=== PATIENT | female | born 1970 | race African-American/Black ===

== ENCOUNTER 2018-11-08 08:26 | Emergency (ER) | payer OTHER ==
--- OUTSIDE RECORDS SUMMARY | 2018-11-08 08:28 | XMS REPORT | Clinical Summary ---
:1970 Author Organization [facility] Address [address] [place] [address] Care Team Providers Name Role Phone Alyssa Singleton MD Primary Care Provider Unavailable Allergies Active Allergy Reactions Severity Noted Date Comments Aspirin Other (See Comments) 11/18/2016 Feels a needle sensation in throat Cheese Hives, Swelling 11/18/2016 Medications Medication Sig Dispensed Refills Start Date End Date Status atorvastatin Take 1 tablet 90 tablet 2 04/27/2018 Active (LIPITOR) 20 MG (20 mg total) tabletIndications: by mouth Mixed hyperlipidemia nightly. gabapentin 1 tab day 1 at 90 capsule 2 04/27/2018 Active (NEURONTIN) 300 mg bedtime, day 2 capsuleIndications: 1 tablet two Right sided sciatica times a day, then 1 tablet three times a day citalopram (CeleXA) Take 1 tablet 30 tablet 5 07/05/2018 Active 20 MG (20 mg total) tabletIndications: by mouth Adjustment reaction daily. Dc 10mg with anxiety dose diclofenac Apply 100 g 1 07/05/2018 Active (VOLTAREN) 1 % topically 4 gelIndications: (four) times a Osteoarthritis of day as needed lumbar spine, (2gm). unspecified spinal osteoarthritis complication status, Acute pain of left knee flash glucose 1 each daily. 84 each 3 10/18/2018 Active scanning reader (FREESTYLE DIXON 14 DAY READER) miscIndications: Type 2 diabetes mellitus with complication, without long-term current use of insulin ([facility]) flash glucose sensor 1 each daily. 84 kit 3 10/18/2018 Active (FREESTYLE DIXON 14 DAY SENSOR) kitIndications: Type 2 diabetes mellitus with complication, without long-term current use of insulin ([facility]) lisinopril Take 1 tablet 90 tablet 3 10/18/2018 Active (PRINIVIL,ZESTRIL) (20 mg total) 20 mg by mouth tabletIndications: daily. Essential hypertension atorvastatin TAKE ONE 0 01/19/2018 Discontinued (LIPITOR) 20 MG TABLET BY 8 tablet MOUTH AT BEDTIME citalopram (CeleXA) Take 10 mg by 0 08/20/2017 Discontinued 10 MG tablet mouth. 8 lisinopril TAKE ONE 0 12/10/2017 Discontinued (PRINIVIL,ZESTRIL) TABLET BY 9 20 mg tablet MOUTH ONCE DAILY citalopram (CeleXA) Take 1 tablet 90 tablet 2 04/27/2018 Discontinued 10 MG (10 mg total) 8 tabletIndications: by mouth Adjustment reaction daily. with anxiety cyclobenzaprine Take 1 tablet 30 tablet 0 04/27/2018 (FLEXERIL) 10 mg (10 mg total) 8 tabletIndications: by mouth 3 Right sided (three) times sciatica, Lumbar a day as radiculopathy, Spasm needed for of muscle, back muscle spasms for up to 10 days. Active Problems Problem Noted Date DJD (degenerative joint disease), lumbar 04/30/2018 Overview: on MRI Spondylosis of lumbar spine 04/30/2018 Overview: on MRI Mixed hyperlipidemia 04/27/2018 Anemia 03/30/2018 Morbid obesity 03/30/2018 Prediabetes 03/30/2018 Essential hypertension 11/18/2016 Menopause 11/18/2016 Sleep apnea 11/18/2016 Type 2 diabetes mellitus with complication, without long-term current use of insulin Encounters Date Type Specialty Care Team Description 10/18/2018 Office Visit Family Alyssa Yip Type 2 diabetes mellitus with complication, without long-term current use of insulin (HCC) ( Primary Dx); MD Yudelka Essential hypertension; Mixed hyperlipidemia; Morbid obesity (HCC); Adjustment reaction with anxiety; Bilateral arm pain; Flu vaccine need 08/09/2018 Refill Alyssa Field Right sided sciatica; MD Yudelka Lumbar radiculopathy; Spasm of muscle, back 07/05/2018 Office Visit Alyssa Field Osteoarthritis of lumbar spine, unspecified spinal osteoarthritis complication status (Primary Dx) ; MD Yudelka Acute pain of left knee; Spondylosis of lumbar spine; Adjustment reaction with anxiety; Essential hypertension 05/26/2018 Telephone Family Medicine Deisy Branch, [place] 05/05/2018 Refill Family Medicine Alyssa Singleton Right sided sciatica; MD Yudelka Lumbar radiculopathy; Spasm of muscle, back 04/27/2018 Office Visit Family Alyssa Yip Type 2 diabetes mellitus with complication, without long-term current use of insulin (Primary Dx ); MD Yudelka Essential hypertension; Adjustment reaction with anxiety; Right sided sciatica; Morbid obesity; Mixed hyperlipidemia; Lumbar radiculopathy; Spasm of muscle, back after 11/07/2017 Immunizations Name Dates Previously Given Next Due INFLUENZA QUAD 08/20/2017 INFLUENZA QUAD PF 10/18/2018 Pneumococcal Polysaccharide 03/12/2013 Family History Medical History Relation Name Comments No Known Problems Daughter adopted No Known Problems Daughter adopted Hypertension Father Arthritis Mother Danya Allred Asthma Mother Danya Allred Depression Mother Danya Allred Diabetes Mother Danya Allred Heart disease Mother Danya Allred has defibrillator Hypertension Mother Danya Allred No Known Problems Sister No Known Problems Son adopted No Known Problems Son adopte No Known Problems Son Relation Name Status Comments Brother (Age 24) Daughter adopted Alive Daughter adopted Alive Father Alive Mother Danya Allred Sister Alive Son adopted Alive Son adopte Alive Son Alive Social History Tobacco Use Types Packs/Day Years Used Date Never Smoker Smokeless Tobacco: Never Used Alcohol Use Drinks/Week oz/Week Comments No Sex Assigned at Date Recorded Not on file Job Start Date Occupation Industry Not on file Not on file Not on file Travel History Travel Start Travel End No recent travel history available. Last Filed Vital Signs Vital Sign Reading Time Taken Blood Pressure 140/99 10/18/2018 10:02 AM [employer] Pulse 84 10/18/2018 10:02 AM [employer] Temperature - - Respiratory Rate - - Oxygen Saturation - - Inhaled Oxygen Concentration - - Weight 122 kg (268 lb) 10/18/2018 10:02 AM [employer] Height 160 cm (5' 3") 10/18/2018 10:02 AM [employer] Body Mass Index 47.47 10/18/2018 10:02 AM [employer] Plan of Treatment Date Type Specialty Care Team Description 04/18/2019 Office Visit Family Alyssa Yip MD [address] [facility] [address] [place] [address] [phone] Health Maintenance Due Date Last Done Comments DIABETIC FOOT EXAM 11/18/2017 11/18/2016, 11/18/2016 DIABETIC RETINAL EYE EXAM 01/16/2019 01/16/2017 URINE MICROALBUMIN 04/27/2019 04/27/2018 INFLUENZA VACCINE Completed 10/18/2018, 08/20/2017 Procedures Procedure Name Priority Date/Time Associated Diagnosis Comments HEMOGLOBIN A1C Routine 10/18/2018 11:20 Type 2 diabetes Results for this AM [employer] mellitus with procedure are in complication, without the results long-term current use section. of insulin (HCC) MICROALBUMIN / Routine 04/27/2018 4:07 Type 2 diabetes Results for this CREATININE URINE PM CDT mellitus with procedure are in RATIO complication, without the results long-term current use section. of insulin LIPID PANEL Routine 04/27/2018 4:07 Type 2 diabetes Results for this PM CDT mellitus with procedure are in complication, without the results long-term current use section. of insulin Essential hypertension Mixed hyperlipidemia HEMOGLOBIN A1C Routine 04/27/2018 4:07 Type 2 diabetes Results for this PM CDT mellitus with procedure are in complication, without the results long-term current use section. of insulin COMPREHENSIVE Routine 04/27/2018 4:07 Type 2 diabetes Results for this METABOLIC PANEL PM CDT mellitus with procedure are in complication, without the results long-term current use section. of insulin Essential hypertension Mixed hyperlipidemia CBC WITH PLATELET AND Routine 04/27/2018 4:07 Type 2 diabetes Results for this DIFFERENTIAL PM CDT mellitus with procedure are in complication, without the results long-term current use section. of insulin Essential hypertension after 11/07/2017 Results Hemoglobin A1c (10/18/2018 11:20 AM [employer])Only the most recent of2 resultswithin the time period is included. Hemoglobin A1C 5.6 4.8 - 5.6 % [facility] Comment: Prediabetes: 5.7 - 6.4 Diabetes: >6.4 Glycemic control for adults with diabetes: <7.0 Specimen Blood Narrative Performed At Performed at:01 - [facility] [address], [id number] Bank President: Zain Miranda MD, Phone:[phone] Performing Organization Address City/State/Zipcode Phone Number [facility] Microalbumin / creatinine urine ratio (04/27/2018 4:07 PM CDT) Creatinine, urine, random 281.9 Not Estab. mg/dL [facility] Microalbumin, urine 6.8 Not Estab. ug/mL [facility] Microalbumin/creatinine ratio 2.4 0.0 - 30.0 mg/g creat [facility] Specimen Urine Narrative Performed At Performed at:[address] [place], [place] [id number] Bank President: Zain Miranda MD, Phone:[phone] Performing Organization Address City/State/Zipcode Phone Number [facility] CBC with platelet and differential (04/27/2018 4:07 PM CDT) WBC 7.8 3.4 - 10.8 x10E3/uL [facility] RBC 4.25 3.77 - 5.28 x10E6/uL [facility] HGB 12.9 11.1 - 15.9 g/dL [facility] HCT 38.9 34.0 - 46.6 % [facility] MCV 92 79 - 97 fL [facility] MCH 30.4 26.6 - 33.0 pg [facility] MCHC 33.2 31.5 - 35.7 g/dL [facility] RDW 13.9 12.3 - 15.4 % [facility] Platelet count 271 150 - 379 x10E3/uL [facility] Neutrophils 47 Not Estab. % [facility] Lymphocytes 47 Not Estab. % [facility] Monocytes 6 Not Estab. % [facility] Eosinophils 0 Not Estab. % [facility] Basophils 0 Not Estab. % [facility] Neutrophils, absolute 3.7 1.4 - 7.0 x10E3/uL [facility] Lymphocytes, absolute 3.7 (H) 0.7 - 3.1 x10E3/uL [facility] Monocytes, absolute 0.4 0.1 - 0.9 x10E3/uL [facility] Eosinophils, absolute 0.0 0.0 - 0.4 x10E3/uL [facility] Basophils, absolute 0.0 0.0 - 0.2 x10E3/uL [facility] Immature granulocytes 0 Not Estab. % [facility] Immature grans (abs) 0.0 0.0 - 0.1 x10E3/uL [facility] Specimen Blood Narrative Performed At Performed at:[address] [place] [address] [facility] [address], [id number] Bank President: Zain Miranda MD, Phone:[phone] Performing Organization Address [facility] [place] Phone Number [facility] Lipid panel (04/27/2018 4:07 PM CDT) Cholesterol 130 100 - 199 mg/dL [facility] Triglycerides 60 0 - 149 mg/dL [facility] HDL cholesterol 46 >39 mg/dL [facility] VLDL cholesterol kiana 12 5 - 40 mg/dL [facility] LDL cholesterol calculated 72 0 - 99 mg/dL [facility] Non-HDL cholesterol 84 0 - 129 mg/dL [facility] Specimen Blood Narrative Performed At Performed at:01 - [facility] [address], [id number] Bank President: Zain Miranda MD, Phone:[phone] Performing Organization Address [facility] Phone Number [facility] Comprehensive metabolic panel (04/27/2018 4:07 PM CDT) Glucose 92 65 - 99 mg/dL [facility] BUN, whole blood 17 6 - 24 mg/dL [facility] Creatinine 0.87 0.57 - 1.00 mg/dL [facility] EGFR Non-Afr. [place] 79 >59 mL/min/1.73 [facility] EGFR 91 >59 mL/min/1.73 [facility] BUN/creatinine ratio 20 9 - 23 [facility] Sodium 144 134 - 144 mmol/L [facility] Potassium 3.5 3.5 - 5.2 mmol/L [facility] Chloride 103 96 - 106 mmol/L [facility] CO2 22 20 - 29 mmol/L [facility] Calcium 9.5 8.7 - 10.2 mg/dL [facility] Protein 7.0 6.0 - 8.5 g/dL [facility] Albumin, S 4.3 3.5 - 5.5 g/dL [facility] Globulin, total 2.7 1.5 - 4.5 g/dL [facility] Albumin/globulin ratio 1.6 1.2 - 2.2 [facility] Total bilirubin 0.8 0.0 - 1.2 mg/dL [facility] Alkaline phosphatase 89 39 - 117 IU/L [facility] AST 13 0 - 40 IU/L [facility] ALT 13 0 - 32 IU/L [facility] Specimen Blood Narrative Performed At Performed at: - [facility] [address], [id number] Bank President: Zain Miranda MD, Phone:[phone] Performing Organization Address City/State/Zipcode Phone Number [facility] after 11/07/2017 Insurance Payer Benefit Plan / Group Subscriber ID Type Phone Address [employer] PPO (Home) [place] [address] Advance Directives Patient has advance care planning documents on file. For more information, please contact:Gilson Lowry[address] [place] [address]
[2018-11-08] MEDS ORDERED: ASPIRIN 81 MG CHEWABLE TABLET ONE (09:13)
[2018-11-08 09:16] LABS: Absolute Lymphocytes (CBC) 2.2 K/uL (0.7-4.9); Absolute Monocytes 0.4 K/uL (0.1-1.3); Absolute Neutrophil 3.3 K/uL (1.8-8.0); Basophils % 0.6 % (0-1.3); Eosinophils % 0.9 % (0-4.4); Hematocrit 38.1 % (36.0-45.0); Lymphocytes % 36.8 % (15.3-44.8); MPV 9.3 fL (7.6-11.3); Monocytes % 7.1 % (3.3-12.3); RBC Red Blood Cell Count 4.16 M/uL (3.86-4.86)
[2018-11-08 09:42] LABS: ALT/SGPT 17 U/L (12-78); AST/SGOT 13 U/L (15-37); Albumin 3.2 g/dL (3.4-5.0); Alkaline Phosphatase 117 U/L (45-117); BUN Blood Urea Nitrogen 16 mg/dL (7-18); Bicarbonate 28 mmol/L (21-32); Bilirubin Direct 0.2 mg/dL (0-0.2); Bilirubin Total 0.6 mg/dL (0.2-1.0); Glucose Level 95 mg/dL (74-106); Magnesium 2.1 mg/dL (1.8-2.4); Potassium 3.8 mmol/L (3.5-5.1); Protein, Total 7.1 g/dL (6.4-8.2); Sodium Level 142 mmol/L (136-145); Troponin (Emerg Dept Use Only) < 0.02 ng/mL (0.0-0.045)
[2018-11-08 09:57] LABS: Protime INR 1.11
--- NOTE | 2018-11-08 10:09 | RAD REPORT ---
EXAM DESCRIPTION: RAD - Chest Single View - 11/08/2018 9:39 am CLINICAL HISTORY: chest heaviness, left arm pain Chest pain. COMPARISON: CHEST SINGLE VIEW dated 02/29/2012 FINDINGS: Portable technique limits examination quality. The lungs are grossly clear. The heart is upper limit of normal in size. No displaced fractures. IMPRESSION: No acute intrathoracic process suspected.
--- NOTE | 2018-11-08 10:27 | ER ---
Nurse's Notes [facility] Name: Iliana Redding Age: 48 yrs Sex: Female : 1970 Arrival Date: 11/08/2018 Time: 08:30 Bed 18 Private MD: Diagnosis: Pain in left arm Presentation: 11/08 08:35 Presenting complaint: Left arm pain x 1 month. Pain is described as a burning hb sensation, denies injury. Transition of care: patient was not received from another setting of care. Onset of symptoms was September 2018. Risk Assessment: Do you want to hurt yourself or someone else? Patient reports no desire to harm self or others. Initial Sepsis Screen: Does the patient meet any 2 criteria? No. Patient's initial sepsis screen is negative. Does the patient have a suspected source of infection? No. Patient's initial sepsis screen is negative. Care prior to arrival: None. 08:35 Method Of Arrival: Ambulatory hb 08:35 Acuity: OCHOA 4 hb [employer] ADJUSTMENT: 08:36 LMP N/A - Hysterectomy hb Historical: - Allergies: 08:37 No Known Allergies; hb - Home Meds: 08:37 Lisinopril Oral [Active]; unknown cholesterol med [Active]; hb - PMHx: 08:37 High Cholesterol; Hypertension; hb - PSHx: 08:37 tubal pregnangy x 2; Hysterectomy; Cholecystectomy; hb - Immunization history:: Adult Immunizations up to date. - Social history:: Smoking status: Patient/guardian denies using tobacco. - Ebola Screening: : No symptoms or risks identified at this time. Screenin:37 Abuse screen: Denies threats or abuse. Denies injuries from another. Nutritional hb screening: No deficits noted. Tuberculosis screening: No symptoms or risk factors identified. Fall Risk None identified. Assessment: 08:30 General: Appears in no apparent distress. obese, Behavior is calm, cooperative, tw2 appropriate for age. Pain: Denies pain. Neuro: Level of Consciousness is awake, alert, obeys commands, Oriented to person, place, time, situation. Cardiovascular: Denies chest pain, shortness of breath, Heart tones S1 S2 Patient's skin is warm and dry. Respiratory: Respiratory effort is even, unlabored, Respiratory pattern is regular, symmetrical, Breath sounds are clear bilaterally. GI: No signs and/or symptoms were reported involving the gastrointestinal system. Abdomen is round non-distended, obese, Bowel sounds present X 4 quads. : No signs and/or symptoms were reported regarding the genitourinary system. EENT: No signs and/or symptoms were reported regarding the EENT system. Derm: No signs and/or symptoms reported regarding the dermatologic system. Musculoskeletal: Range of motion: intact in all extremities, Denies numbness in, left arm. 09:36 Reassessment: Patient appears in no apparent distress at this time. No changes from tw2 previously documented assessment. Patient and/or family updated on plan of care and expected duration. Pain level reassessed. Patient is alert, oriented x 3, equal unlabored respirations, skin warm/dry/pink. 10:02 Reassessment: Patient appears in no apparent distress at this time. No changes from tw2 previously documented assessment. Patient and/or family updated on plan of care and expected duration. Pain level reassessed. Patient is alert, oriented x 3, equal unlabored respirations, skin warm/dry/pink. 10:44 Reassessment: Patient appears in no apparent distress at this time. No changes from tw2 previously documented assessment. Patient is alert, oriented x 3, equal unlabored respirations, skin warm/dry/pink. Vital Signs: 08:36 BP 141 / 89; Pulse 90; Resp 16; Temp 98.1; Pulse Ox 98% on R/A; Pain 8/10; hb 09:36 BP 140 / 113; Pulse 77; Resp 20; Pulse Ox 100% on R/A; tw2 10:01 BP 134 / 105; Pulse 81; Resp 16; Pulse Ox 100% on R/A; tw2 10:43 BP 133 / 84; Pulse 87; Resp 17; Pulse Ox 99% on R/A; tw2 ED Course: 08:30 Patient arrived in ED. hb 08:31 Camron Hassan PA is PHCP. cp 08:31 Devendra Goodrich MD is Attending Physician. cp 08:36 Triage completed. hb 08:36 Arm band placed on. hb 08:38 Patient has correct armband on for positive identification. Bed in low position. Call hb light in reach. Side rails up X 1. 08:40 Sigrid Hartmann RN is Primary Nurse. tw2 09:06 Inserted saline lock: 20 gauge in right antecubital area, using aseptic technique. mw2 Blood collected. 09:38 X-ray completed. Portable x-ray completed in exam room. Patient tolerated procedure jb2 well. 09:39 XRAY Chest (1 view) In Process Unspecified. EDMS 09:42 EKG done, by electrocardiogram technician. reviewed by Camron BRYSON. at1 10:44 No provider procedures requiring assistance completed. IV discontinued, intact, tw2 bleeding controlled, No redness/swelling at site. Pressure dressing applied. Administered Medications: 09:12 Drug: Aspirin Chewable Tablet 324 mg Route: PO; tw2 10:00 Follow up: Response: No adverse reaction tw2 Outcome: 10:26 Discharge ordered by MD. cp 10:44 Discharged to home ambulatory, with family. tw2 10:44 Condition: stable 10:44 Discharge instructions given to patient, family, Instructed on discharge instructions, follow up and referral plans. medication usage, Demonstrated understanding of instructions, follow-up care, medications, Prescriptions given X 1. 10:45 Patient left the ED. tw2 Signatures: Dispatcher [employer] EDMS Jalil Mosqueda jb2 Kellie Tuttle, conference producer EKG Tat1 Camron Hassan PA PA cp Baxter, Heather, RN RN Sigrid Hartmann RN RN tw2 Akbar Ramírez mw2
--- NOTE | 2018-11-08 10:27 | EDPHYS ---
Physician Documentation [facility] Name: Iliana Redding Age: 48 yrs Sex: Female : 1970 Arrival Date: 11/08/2018 Time: 08:30 Bed 18 Private MD: ED Physician Devendra Goodrich HPI: 11/08 09:12 This 48 yrs old Black Female presents to ER via Ambulatory with complaints of left arm cp burning. 09:12 The patient or guardian complains of burning. The complaints affect the left arm. cp Onset: The symptoms/episode began/occurred 1 week(s) ago, waxing and waning. Modifying factors: The symptoms are alleviated by nothing. the symptoms are aggravated by nothing. 09:12 Treatment prior to arrival includes: no previous treatment. cp 09:12 Associated signs and symptoms: Pertinent positives: chest heaviness, Pertinent cp negatives: decreased range of motion, numbness, swelling, weakness, neck or back pain. Severity of symptoms: in the emergency department the symptoms have improved. 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 - Social history:: Smoking status: Patient/guardian denies using tobacco. - Ebola Screening: : No symptoms or risks identified at this time. ROS: 09:15 Constitutional: Negative for body aches, chills, fever, poor PO intake. cp 09:15 Eyes: Negative for injury, pain, redness, and discharge. cp 09:15 ENT: Negative for drainage from ear(s), ear pain, sore throat, difficulty swallowing, difficulty handling secretions. 09:15 Neck: Negative for injury or acute deformity, pain with movement, pain at rest, stiffness, tenderness. 09:15 Cardiovascular: Positive for chest heaviness, Negative for chest pain, edema, palpitations. 09:15 Respiratory: Negative for cough, shortness of breath, wheezing. 09:15 Abdomen/GI: Negative for abdominal pain, nausea, vomiting, and diarrhea, constipation, black/tarry stool, rectal bleeding. 09:15 Back: Negative for injury or acute deformity, pain at rest, pain with movement, radiated pain. 09:15 : Negative for urinary symptoms. 09:15 MS/extremity: Positive for of the left arm, burning pain , Negative for injury or acute deformity, decreased range of motion, paresthesias, swelling, tenderness, warmth. 09:15 Skin: Negative for cellulitis, rash. 09:15 Neuro: Negative for altered mental status, dizziness, headache, numbness, tingling, weakness. 09:15 All other systems are negative. Exam: 09:18 ECG was reviewed by the Attending Physician. cp 09:25 Constitutional: The patient appears in no acute distress, alert, awake, cp non-diaphoretic, non-toxic, well developed, well nourished, obese. 09:25 Head/Face: Normocephalic, atraumatic. cp 09:25 Eyes: Periorbital structures: appear normal, Conjunctiva: normal, no exudate, no injection, Sclera: no appreciated abnormality, Lids and lashes: appear normal, bilaterally. 09:25 ENT: External ear(s): are unremarkable, Nose: is normal, Mouth: Lips: moist, Oral mucosa: pink and intact, moist, Posterior pharynx: Airway: no evidence of obstruction, patent. 09:25 Neck: C-spine: vertebral tenderness, is not appreciated, crepitus, is not appreciated, ROM/movement: is normal, is supple, without pain, no range of motions limitations, no nuchal rigidity. 09:25 Chest/axilla: Inspection: normal, Palpation: is normal, no crepitus, no tenderness. 09:25 Cardiovascular: Rate: normal, Rhythm: regular, Pulses: Pulses are 2+ in right radial artery and left radial artery. Heart sounds: murmur, not appreciated, rub, not appreciated, gallop, not appreciated, Edema: is not appreciated, JVD: is not appreciated. 09:25 Respiratory: the patient does not display signs of respiratory distress, Respirations: normal, no use of accessory muscles, no retractions, no splinting, no tachypnea, labored breathing, is not present, Breath sounds: are clear throughout, no decreased breath sounds, no stridor, no wheezing. 09:25 Abdomen/GI: Exam negative for discomfort, distension, guarding, Inspection: abdomen appears normal. 09:25 Back: pain, is absent, ROM is normal, muscle spasm, is not present. cp 09:25 Musculoskeletal/extremity: Extremities: grossly normal except: noted in the left arm: cp burning, There is no evidence of decreased ROM, swelling, tenderness. 09:25 Skin: cellulitis, is not appreciated, no rash present. 09:25 Neuro: Orientation: is normal, Mentation: is normal, Cerebellar function: is grossly normal, Motor: moves all fours, strength is normal, Sensation: no obvious gross deficits. Vital Signs: 08:36 BP 141 / 89; Pulse 90; Resp 16; Temp 98.1; Pulse Ox 98% on R/A; Pain 8/10; hb 09:36 BP 140 / 113; Pulse 77; Resp 20; Pulse Ox 100% on R/A; tw2 10:01 BP 134 / 105; Pulse 81; Resp 16; Pulse Ox 100% on R/A; tw2 10:43 BP 133 / 84; Pulse 87; Resp 17; Pulse Ox 99% on R/A; tw2 MDM: 08:31 Patient medically screened. cp 09:00 Differential diagnosis: DVT, acute NV, angina, cervical radiculopathy. cp 10:25 Data reviewed: vital signs, nurses notes, lab test result(s), EKG, radiologic studies, cp plain films. 10:25 Test interpretation: by ED physician or midlevel provider: ECG, plain radiologic cp studies. 10:25 Counseling: I had a detailed discussion with the patient and/or guardian regarding: the cp historical points, exam findings, and any diagnostic results supporting the discharge/admit diagnosis, the presence of at least one elevated blood pressure reading (>120/80) during this emergency department visit, lab results, radiology results, to return to the emergency department if symptoms worsen or persist or if there are any questions or concerns that arise at home. 10:25 Response to treatment: the patient's symptoms have mildly improved after treatment, and cp as a result, I will discharge patient. 11/08 08:58 Order name: Basic Metabolic Panel; Complete Time: 09:58 cp 11/08 09:59 Interpretation: Normal except: CL 109; CA 8.3. cp 11/08 08:58 Order name: CBC with Diff; Complete Time: 09:58 cp / 08:58 Order name: LFT's; Complete Time: 09:58 cp 11/08 09:58 Interpretation: Normal except: AST 13; ALB 3.2; GLOB 3.9; A/G 0.8. cp 03/12 08:58 Order name: Magnesium; Complete Time: 09:58 cp / 08:58 Order name: PT-INR; Complete Time: 09:58 cp 11/08 08:58 Order name: Troponin (emerg Dept Use Only); Complete Time: 09:58 cp 03/12 09:58 Interpretation: TROPED < 0.02; Reviewed. cp / 08:58 Order name: XRAY Chest (1 view) cp 11/08 08:58 Order name: EKG; Complete Time: 08:59 cp 11/08 08:58 Order name: Cardiac monitoring; Complete Time: 08:59 cp 11/08 08:58 Order name: EKG - Nurse/Tech; Complete Time: 09:10 cp 11/08 08:58 Order name: IV Saline Lock; Complete Time: 09:00 cp 11/08 08:58 Order name: Labs collected and sent; Complete Time: 09:10 cp 11/08 08:58 Order name: O2 Per Protocol; Complete Time: 09:00 cp 11/08 08:58 Order name: O2 Sat Monitoring; Complete Time: 09:00 cp EC:18 Rate is 69 beats/min. Rhythm is regular. WI interval is normal. QRS interval is normal. cp QT interval is normal. Interpreted by me. Reviewed by me. Administered Medications: 09:12 Drug: Aspirin Chewable Tablet 324 mg Route: PO; tw2 10:00 Follow up: Response: No adverse reaction tw2 Disposition: 14:47 Co-signature as Attending Physician, Devendra Goodrich MD. rn Disposition: 11/08/18 10:26 Discharged to Home. Impression: Pain in left arm. - Condition is Stable. - Discharge Instructions: Musculoskeletal Pain. - Prescriptions for Naprosyn 500 mg Oral Tablet - take 1 tablet by ORAL route 2 times per day take with food; 20 tablet. - Medication Reconciliation Form, Thank You Letter, Antibiotic Education, Prescription Opioid Use form. - Follow up: Private Physician; When: 2 - 3 days; Reason: Recheck today's complaints. - Problem is new. - Symptoms have improved. Signatures: Dispatcher [employer] EDMS Devendra Goordich MD MD rn Camron Hassan PA PA cp Sandi Anthony RN RN Sigrid Hartmann RN RN tw2 Corrections: (The following items were deleted from the chart) 09:59 09:58 Normal except: CL 109. cp cp 10:45 10:26 11/08/2018 10:26 Discharged to Home. Impression: Pain in left arm. Condition is tw2 Stable. Forms are Medication Reconciliation Form, Thank You Letter, Antibiotic Education, Prescription Opioid Use. Follow up: Private Physician; When: 2 - 3 days; Reason: Recheck today's complaints. Problem is new. Symptoms have improved. cp
[2018-11-08 10:50] VITALS: TEMP 98.1
[2018-11-08 10:54] VITALS: BP 133/84; O2SAT 99
--- NOTE | 2018-11-10 10:27 | EKG ---
Test Date: 2018-11-08 Test Time: 09:12:07 Pipe Stem Aligner: ELISEO MEASUREMENT RESULTS: Intervals: Rate: 69 [place]: 178 QRSD: 72 QT: 398 QTc: 426 Samson: P: 49 [place]: 178 QRS: 0 T: 8 INTERPRETIVE STATEMENTS: Normal sinus rhythm with sinus arrhythmia Minimal voltage criteria for LVH, may be normal variant Abnormal ECG Compared to ECG 02/29/2012 23:53:51 Left ventricular hypertrophy now present Sinus bradycardia no longer present T-wave abnormality no longer present Electronically Signed On 11-08-18 12:38:51 CDT by Triston Branch
== END 2018-11-08 10:45 | disposition home or self-care (01) ==
LOC: ER 08:26
DX: R20.8 Other disturbances of skin sensation (principal); M79.602 Pain in left arm; E78.00 Pure hypercholesterolemia, unspecified; I10 Essential (primary) hypertension
CPT/HCPCS: 36415; 71045; 80048; 80076; 83735; 84484; 85025; 85610; 93005; 99284

== ENCOUNTER 2019-09-18 11:01 | Observation (INO) | payer OTHER ==
[2019-09-18 11:40] LABS: Absolute Lymphocytes (CBC) 2.7 K/uL (0.7-4.9); Basophils % 0.6 % (0-1.3); Hematocrit 38.8 % (36.0-45.0); MPV 8.9 fL (7.6-11.3)
[2019-09-18 11:46] LABS: Protime INR 1.05
--- NOTE | 2019-09-18 11:51 | RAD REPORT ---
EXAM DESCRIPTION: Prashant Single View09/18/2019 11:39 am CLINICAL HISTORY: Chest pain COMPARISON: October 2018 FINDINGS: The lungs appear clear of acute infiltrate. The heart is normal size IMPRESSION: No acute abnormalities displayed
[2019-09-18 11:59] LABS: Albumin 3.3 g/dL (3.4-5.0); Bilirubin Direct 0.2 mg/dL (0-0.2); Bilirubin Total 0.7 mg/dL (0.2-1.0); Potassium 3.8 mmol/L (3.5-5.1); Protein, Total 7.4 g/dL (6.4-8.2)
--- NOTE | 2019-09-18 13:43 | EDPHYS ---
Physician Documentation [facility] Name: Iliana Redding Age: 49 yrs Sex: Female : 1970 Arrival Date: 09/18/2019 Time: 11:03 Bed 3 Private MD: ED Physician Eric Rebolledo HPI: 09/18 14:52 This 49 yrs old Black Female presents to ER via Ambulatory with complaints of Chest tw4 Discomfort, L Leg/Arm Pain. 14:52 The patient or guardian reports chest pain that is located primarily in the anterior tw4 chest wall. Onset: 3 day(s) ago. The pain does not radiate. Associated signs and symptoms: The patient has no apparent associated signs or symptoms. The chest pain is described as dull. Duration: The patient or guardian reports a single episode, that is still ongoing. Modifying factors: The symptoms are alleviated by nothing. the symptoms are aggravated by nothing. Severity of pain: At its worst the pain was mild in the emergency department the pain is unchanged. The patient has not experienced similar symptoms in the past. Historical: - Allergies: 11:34 Aspirin; sv - PMHx: 11:32 High Cholesterol; Hypertension; sv - PSHx: 11:32 Hysterectomy; Cholecystectomy; tubal pregnangy x 2; sv - Immunization history:: Adult Immunizations up to date. - Social history:: Smoking status: Patient denies any tobacco usage or history of. - Ebola Screening: : No symptoms or risks identified at this time. ROS: 14:52 Constitutional: Negative for fever, chills, and weight loss, Eyes: Negative for injury, tw4 pain, redness, and discharge, Respiratory: Negative for shortness of breath, cough, wheezing, and pleuritic chest pain, Abdomen/GI: Negative for abdominal pain, nausea, vomiting, diarrhea, and constipation. 14:52 MS/Extremity: Negative for injury and deformity, Skin: Negative for injury, rash, and discoloration. 14:52 Cardiovascular: Positive for chest pain, Negative for edema, orthopnea, palpitations. Exam: 14:52 Constitutional: This is a well developed, well nourished patient who is awake, alert, tw4 and in no acute distress. Head/Face: Normocephalic, atraumatic. Chest/axilla: Normal chest wall appearance and motion. Nontender with no deformity. No lesions are appreciated. Cardiovascular: Regular rate and rhythm with a normal S1 and S2. No gallops, murmurs, or rubs. Normal PMI, no JVD. No pulse deficits. Respiratory: Lungs have equal breath sounds bilaterally, clear to auscultation and percussion. No rales, rhonchi or wheezes noted. No increased work of breathing, no retractions or nasal flaring. Abdomen/GI: Soft, non-tender, with normal bowel sounds. No distension or tympany. No guarding or rebound. No evidence of tenderness throughout. Skin: Warm, dry with normal turgor. Normal color with no rashes, no lesions, and no evidence of cellulitis. MS/ Extremity: Pulses equal, no cyanosis. Neurovascular intact. Full, normal range of motion. Neuro: Awake and alert, GCS 15, oriented to person, place, time, and situation. Cranial nerves II-XII grossly intact. Motor strength 5/5 in all extremities. Sensory grossly intact. Cerebellar exam normal. Normal gait. Vital Signs: 11:18 BP 156 / 115; Pulse 89; Resp 18; Temp 98; Pulse Ox 97% ; sv 12:21 BP 149 / 93; Pulse 78; Resp 17; Pulse Ox 100% ; sv 13:00 BP 156 / 108; Pulse 73; Resp 15; Pulse Ox 99% ; sv 13:06 BP 136 / 93; Pulse 73; Resp 18; Pulse Ox 100% ; sv 14:03 BP 137 / 93; Pulse 80; Resp 14; Pulse Ox 97% on R/A; sv 15:00 BP 132 / 94; Pulse 83; Resp 14; Pulse Ox 96% on R/A; sv 16:00 BP 126 / 83; Pulse 72; Resp 12; Pulse Ox 97% ; sv 16:52 BP 106 / 92; Pulse 61; Resp 19; Pulse Ox 98% ; sv MDM: 11:15 Patient medically screened. tw4 13:34 Differential diagnosis: acute myocardial infarction, acute pericarditis, esophagitis, tw4 gastritis, gastroesophageal reflux disease (GERD), pancreatitis, pulmonary embolus, thoracic aortic disection. HEART Score: History: Moderately Suspicious (1), ECG: Non specific repolarization disturbance / LBTB / PM (1), Age: > 45 and < 65 years (1), Risk Factors: 1 or 2 risk factors (1), Troponin: < or = 1 x Normal Limit (0), Total Score = 5. The patient was not given aspirin in the Emergency Department. Not indicated due to patient's past medical history. Data reviewed: vital signs, nurses notes. Data interpreted: gum worker: Pulse oximetry: Interpretation: normal. Test interpretation: by ED physician or midlevel provider: ECG, plain radiologic studies. Counseling: I had a detailed discussion with the patient and/or guardian regarding: the historical points, exam findings, and any diagnostic results supporting the discharge/admit diagnosis, lab results, radiology results. Physician consultation: Nam Carrera MD was called at 13:30, regarding admission, to the telemetry unit. patient's condition, and will see patient in ED. 09/18 11:08 Order name: Basic Metabolic Panel 09/18 11:08 Order name: CBC with Diff 09/18 11:08 Order name: LFT's 09/18 11:08 Order name: Magnesium; Complete Time: 12:44 [facility] 09/18 12:44 Interpretation: Within normal limits: MG 2.0. 09/18 11:08 Order name: NT PRO-BNP; Complete Time: 12:44 [facility] 09/18 12:44 Interpretation: Within normal limits: NT PRO-BNP 38. 09/18 11:08 Order name: PT-INR; Complete Time: 12:44 [facility] 09/18 12:44 Interpretation: Within normal limits: PT 12.4. 09/18 11:08 Order name: Troponin (emerg Dept Use Only); Complete Time: 12:44 [facility] 09/18 12:44 Interpretation: Within normal limits: TROPED < 0.02. 09/18 11:08 Order name: D-Dimer; Complete Time: 12:44 [facility] 09/18 12:44 Interpretation: Within normal limits: D-DIMER 292. 09/18 11:08 Order name: Basic Metabolic Panel; Complete Time: 12:43 EDMS 09/18 12:43 Interpretation: Normal except: CL 109; GFR 79. 09/18 11:08 Order name: CBC with Automated Diff [facility] 09/18 11:08 Order name: Liver (Hepatic) Function; Complete Time: 12:43 EDMS 09/18 12:43 Interpretation: Normal except: A/G 0.8; ALB 3.3; GLOB 4.1. tw4 09/18 16:25 Order name: Magnesium EDMS 09/18 16:25 Order name: CBC with Automated Diff EDMS 09/18 16:25 Order name: CBC with Automated Diff EDMS 09/18 11:08 Order name: XRAY Chest (1 view); Complete Time: 12:44 tw4 09/18 11:08 Order name: EKG; Complete Time: 11:09 tw4 09/18 15:09 Order name: Diet Heart Healthy; Complete Time: 15:10 sv 09/18 16:25 Order name: CBC with Automated Diff EDMS 09/18 16:25 Order name: CBC with Automated Diff EDMS 09/18 16:25 Order name: Comprehensive Metabolic Panel EDMS 09/18 16:25 Order name: Comprehensive Metabolic Panel EDMS 09/18 16:25 Order name: Rest Stress Cardiac Imaging EDMS 09/18 16:27 Order name: CONS Pharmacy Consult EDMS 09/18 16:27 Order name: EKG Electrocardiogram EDMS 09/18 16:27 Order name: EKG Electrocardiogram EDMS 09/18 16:27 Order name: Troponin I EDMS 09/18 16:27 Order name: Troponin I EDMS 09/18 16:27 Order name: Troponin I EDLA 09/18 16:27 Order name: Lower Extremity Artery [employer] EDMS 09/18 11:08 Order name: Cardiac monitoring; Complete Time: 11:21 tw4 09/18 11:08 Order name: EKG - Nurse/Tech; Complete Time: 11:21 tw4 09/18 11:08 Order name: IV Saline Lock; Complete Time: 11:27 tw4 09/18 11:08 Order name: Labs collected and sent; Complete Time: 11:27 tw4 09/18 11:08 Order name: O2 Per Protocol; Complete Time: 11:21 tw4 09/18 11:08 Order name: O2 Sat Monitoring; Complete Time: 11:21 tw4 Administered Medications: 13:48 Drug: Nitro-Bid Ointment 2 % 0.5 inches Route: Transdermal; Site: anterior chest wall; sv 14:03 Follow up: Response: No adverse reaction sv Disposition: 09/18/19 13:42 Hospitalization ordered by Nam Carrera for Observation. Preliminary diagnosis is Chest pain, unspecified. - Bed requested for Telemetry/MedSurg (observation). - Status is Observation. sv - Condition is Stable. - Problem is new. - Symptoms have improved. UTI on Admission? No Signatures: Dispatcher [employer] Roro Clinton, RN RN sv Judi Robbins RN RN Eric Rebolledo MD MD tw4 Corrections: (The following items were deleted from the chart) 11:34 11:32 Allergies: No Known Allergies; sv sv 16:44 13:42 Hospitalization Ordered by Nam Carrera MD for Observation. Preliminary dw diagnosis is Chest pain, unspecified. Bed requested for Telemetry/MedSurg (observation). Status is Observation. Condition is Stable. Problem is new. Symptoms have improved. UTI on Admission? No. tw4 18:05 16:44 09/18/2019 13:42 Hospitalization Ordered by Nam Carrera MD for Observation. sv Preliminary diagnosis is Chest pain, unspecified. Bed requested for Telemetry/MedSurg (observation). Status is Observation. Condition is Stable. Problem is new. Symptoms have improved. UTI on Admission? No. dw
--- NOTE | 2019-09-18 13:43 | ER ---
Nurse's Notes [facility] Name: Iliana Redding Age: 49 yrs Sex: Female : 1970 Arrival Date: 09/18/2019 Time: 11:03 Bed 3 Private MD: Diagnosis: Chest pain, unspecified Presentation: 09/18 11:30 Presenting complaint: Patient states: midsternal chest pain that radiates to the left sv arm and leg x 4 days. Also reports left leg has intermittent pain. Transition of care: patient was not received from another setting of care. Onset of symptoms was September 14, 2019. Risk Assessment: Do you want to hurt yourself or someone else? Patient reports no desire to harm self or others. Initial Sepsis Screen: Does the patient meet any 2 criteria? No. Patient's initial sepsis screen is negative. Does the patient have a suspected source of infection? No. Patient's initial sepsis screen is negative. Care prior to arrival: None. 11:30 Method Of Arrival: Ambulatory sv 11:30 Acuity: OCHOA 2 sv Triage Assessment: 11:30 General: Appears in no apparent distress. uncomfortable, obese, well developed, sv Behavior is calm, cooperative, appropriate for age. Pain: Complains of pain in chest Pain radiates to left arm Pain currently is 5 out of 10 on a pain scale. Quality of pain is described as sharp, Pain began 3-4 days Is intermittent. Neuro: Level of Consciousness is awake, alert, obeys commands, Oriented to person, place, time, situation, Moves all extremities. Full function Gait is steady. Respiratory: Airway is patent Respiratory effort is even, unlabored, Respiratory pattern is regular, symmetrical. Derm: Skin is pink, warm \T\ dry. Historical: - Allergies: 11:34 Aspirin; sv - PMHx: 11:32 High Cholesterol; Hypertension; sv - PSHx: 11:32 Hysterectomy; Cholecystectomy; tubal pregnangy x 2; sv - Immunization history:: Adult Immunizations up to date. - Social history:: Smoking status: Patient denies any tobacco usage or history of. - Ebola Screening: : No symptoms or risks identified at this time. Screenin:35 Abuse screen: Denies threats or abuse. Denies injuries from another. Nutritional sv screening: No deficits noted. Tuberculosis screening: No symptoms or risk factors identified. Fall Risk None identified. Assessment: 12:20 Reassessment: Patient appears in no apparent distress at this time. No changes from sv previously documented assessment. Patient and/or family updated on plan of care and expected duration. Pain level reassessed. Patient is alert, oriented x 3, equal unlabored respirations, skin warm/dry/pink. 13:48 Reassessment: Patient appears in no apparent distress at this time. No changes from sv previously documented assessment. Patient and/or family updated on plan of care and expected duration. Pain level reassessed. Patient is alert, oriented x 3, equal unlabored respirations, skin warm/dry/pink. 14:04 Reassessment: Dr Rebolledo in speaking with the pt and family regarding results and sv admission. 14:46 Reassessment: Dr Carrera at the bedside. sv 15:00 Reassessment: Patient appears in no apparent distress at this time. No changes from sv previously documented assessment. Patient and/or family updated on plan of care and expected duration. Pain level reassessed. Patient is alert, oriented x 3, equal unlabored respirations, skin warm/dry/pink. 15:07 Reassessment: Waiting for admission orders. sv 15:49 Reassessment: Called Dr Carrera to get admission orders. Stated he was putting them in right now. 16:43 Reassessment: Patient appears in no apparent distress at this time. No changes from sv previously documented assessment. Patient and/or family updated on plan of care and expected duration. Pain level reassessed. Patient is alert, oriented x 3, equal unlabored respirations, skin warm/dry/pink. Pt given dinner tray. 16:47 Reassessment: Attempted to call report, nurse to call back. sv 17:24 Reassessment: Attempted to call report, nurse to call back. sv 17:49 Reassessment: Attempted to call report, nurse to call back. sv 18:02 Reassessment: Patient appears in no apparent distress at this time. No changes from sv previously documented assessment. Patient and/or family updated on plan of care and expected duration. Pain level reassessed. Patient is alert, oriented x 3, equal unlabored respirations, skin warm/dry/pink. Vital Signs: 11:18 BP 156 / 115; Pulse 89; Resp 18; Temp 98; Pulse Ox 97% ; sv 12:21 BP 149 / 93; Pulse 78; Resp 17; Pulse Ox 100% ; sv 13:00 BP 156 / 108; Pulse 73; Resp 15; Pulse Ox 99% ; sv 13:06 BP 136 / 93; Pulse 73; Resp 18; Pulse Ox 100% ; sv 14:03 BP 137 / 93; Pulse 80; Resp 14; Pulse Ox 97% on R/A; sv 15:00 BP 132 / 94; Pulse 83; Resp 14; Pulse Ox 96% on R/A; sv 16:00 BP 126 / 83; Pulse 72; Resp 12; Pulse Ox 97% ; sv 16:52 BP 106 / 92; Pulse 61; Resp 19; Pulse Ox 98% ; sv ED Course: 11:03 Patient arrived in ED. ds1 11:07 Eric Rebolledo MD is Attending Physician. tw4 11:18 Roro Mary, JESS is Primary Nurse. sv 11:25 Inserted saline lock: 20 gauge in right antecubital area, using aseptic technique. sv Blood collected. Flushed right antecubital with 5 ml normal saline. 11:27 Basic Metabolic Panel Sent. sv 11:27 CBC with Diff Sent. sv 11:27 LFT's Sent. sv 11:28 XRAY Chest (1 view) Sent. sv 11:29 Arm band placed on. sv 11:31 Triage completed. sv 11:31 EKG done, by technical system analyst. reviewed by Eric Rebolledo MD. at1 11:33 ED physician to see patient. sv 11:33 Patient has correct armband on for positive identification. Placed in gown. Bed in low sv position. Call light in reach. campus monitor on. Pulse ox on. NIBP on. Door closed. Head of bed elevated. 11:40 XRAY Chest (1 view) In Process Unspecified. EDMS 13:42 Nam Carrera MD is Hospitalizing Provider. tw4 16:35 Diet: Patient given a heart healthy meal tray. Tolerated well. jp3 16:48 No provider procedures requiring assistance completed. Patient admitted, IV remains in sv place. intact. Administered Medications: 13:48 Drug: Nitro-Bid Ointment 2 % 0.5 inches Route: Transdermal; Site: anterior chest wall; sv 14:03 Follow up: Response: No adverse reaction sv Outcome: 13:42 Decision to Hospitalize by Provider. tw4 18:01 Admitted to Tele accompanied by tech, via wheelchair, room 216, with chart, Report sv called to LIZETH RN 18:01 Condition: stable 18:01 Instructed on the need for admit. 18:05 Patient left the ED. sv Signatures: Dispatcher [employer] Roro Clinton RN RN sv Miri Beaulieu ds1 Kellie Tuttle, manager client EKG Tat1 Eric Rebolledo MD MD tw4 Anastacio Guerrero jp3 Corrections: (The following items were deleted from the chart) 11:34 11:32 Allergies: No Known Allergies; sv sv
[2019-09-18] MEDS ORDERED: NITROGLYCERIN 1 GM PKT TD ONE (13:48)
--- NOTE | 2019-09-18 14:52 | EKG ---
Test Date: 2019-09-18 Test Time: 11:18:01 Income Tax Auditor: ELISEO MEASUREMENT RESULTS: Intervals: Rate: 68 MD: 166 QRSD: 70 QT: 398 QTc: 423 [place]: P: 44 MD: 166 QRS: -1 T: 0 INTERPRETIVE STATEMENTS: Normal sinus rhythm Minimal voltage criteria for LVH, may be normal variant Nonspecific T wave abnormality Abnormal ECG Compared to ECG 11/08/2018 09:12:07 T-wave abnormality now present Sinus arrhythmia no longer present Electronically Signed On 09-18-19 14:51:28 ENGINEERING LEADER by Triston Branch
[2019-09-18] MEDS: NITROGLYCERIN 0.2 MG/HR (5 MG) PATCH TD SCH (16:19)
[2019-09-18] MEDS ORDERED: ACETAMINOPHEN 325 MG TABLET PO PRN (16:19)
[2019-09-18] MEDS ORDERED: ONDANSETRON 4 MG/2 ML VIAL IV PRN (16:19)
[2019-09-18] MEDS ORDERED: HYDRALAZINE HCL 20 MG/ML VIAL IV PRN (16:19)
[2019-09-18] MEDS ORDERED: MORPHINE 2 MG/ML SYR IV PRN (16:19)
[2019-09-18] MEDS ORDERED: ASPIRIN EC 81 MG TAB PO ONE (16:30)
[2019-09-18] MEDS ORDERED: CLOPIDOGREL 75 MG TABLET PO ONE (16:32)
--- NOTE | 2019-09-18 17:19 | RAD REPORT ---
EXAM DESCRIPTION: US - Lower Extremity Artery Uni Ltd - 09/18/2019 5:07 pm CLINICAL HISTORY: Left leg pain COMPARISON: None FINDINGS: The waveforms of the left common femoral and left superficial femoral artery are triphasic . The waveforms of the left popliteal, left posterior tibial and left dorsalis pedis arteries are bipha sic. IMPRESSION: Mild disease involving the arteries of the mid and lower aspect of the left lower extrem ity No high-grade stenosis/occlusion noted
[2019-09-18 18:36] VITALS: BMI 49.1
[2019-09-18 20:20] LABS: Urine Appearance CLEAR; Urine Bilirubin NEGATIVE (NEG); Urine Blood NEGATIVE (NEG); Urine Color YELLOW; Urine Glucose NEGATIVE (NEG); Urine Protein NEGATIVE (NEG); Urine Specific Gravity 1.015 (1.005-1.030)
[2019-09-18 20:29] LABS: Urine Microscopic Reflex NO UMIC
[2019-09-18 20:56] LABS: Magnesium 1.9 mg/dL (1.8-2.4); Troponin I < 0.02 ng/mL (0.0-0.045)
[2019-09-18] MEDS: FAMOTIDINE 20 MG TAB PO SCH (22:04)
--- NOTE | 2019-09-19 00:59 | HP ---
Date of Admission: 09/18/2019 Presenting Complaint: Substernal chest pressure. History Of Present Illness: Ms. Iliana Redding is a 49-year-old female with past med ical history of hypertension, obesity, hyperlipidemia, who presented to the ED because of substernal chest pressure since the last 3 days. The patient states pain is not radiating to the arm. She desc ribes a separate left arm pain and that is nonradiating, worse at night. She also states she has bee n having left leg pain also, which is also worse with activity. She describes low back pain with a f eeling of muscle spasm, but denies any radiculopathy pain. She denies any dysuria or nocturia. She denies any history of tobacco use. She had a stress test over 5 years ago that was relatively negati ve. She denies any recent or recurrent chest pain. Past Medical History: Hypertension, hyperlipidemia, obesity. Home Medications: See full medication list, currently is pending. Allergies: ASPIRIN. Past Surgical History: Hysterectomy, cholecystectomy. Family History: Significant for CAD with mother having AICD, but she denies any history of ID in the family. Review of Systems: All systems reviewed x14 were negative except as mentioned above. Physical Examination: Current Vitals: Blood pressure of 130/96, pulse of 76, respiratory rate of 14, O2 saturation 99 on r oom air. Temperature afebrile. General: Obese, middle-aged female, calm, not in any distress. Head: Atraumatic, normocephalic. Pupils equal, reactive to light. Extraocular motor movement intac t. Neck: No JVD. Respiratory: No carotid bruit. Good air entry bilaterally. No reproducible chest wall tenderness. Cardiovascular: S1, S2. Rate and rhythm regular. GI: Abdomen full, soft, nontender. Bowel sounds positive. Back: Mild tenderness over the lower lumbar area with parasternal stiffness reported, but no CVA ten derness. Musculoskeletal: Tenderness over the left calf, but not reproducible as well as negative Homans sign . Mild tenderness over the left mid area. Neuro: Patient is alert, oriented. Cranial nerves 2 through 12 grossly intact. Laboratory Data: Troponin less than 0.01, WBC 6.8, platelets 246, hemoglobin 12.6, INR 1.05. D-dime r 292, normal. Potassium 3.8, creatinine 0.9, EGFR of 79, magnesium 2.0. ProBNP 38. Albumin 3.3. EKG shows normal sinus rhythm, no ST-segment changes, rate of 68 beats per minute. Impression: 1.Atypical chest pain, likely noncardiac. We will admit the patient for serial set of cardiac enzym es given multiple risk factors including obesity, hypertension, and hyperlipidemia. We will schedule patient for stress test in the a.m. if negative cardiac enzymes. We will start patient on nitroglyc tenisha patch and symptoms. We will do Pepcid for presumed GI prophylaxis. Given negative D -dimer, low threshold, a suspicion for pulmonary embolism. 2.Left arm and leg pain, unclear etiology, may be due to muscle spasm. We will obtain ultrasound of the left lower extremity to rule out deep venous thrombosis. 3.Hypertension, obtain home medications. We will do IV hydralazine as needed. 4.Disposition. Possible hospital stay for less than 24 hours. 5.Deep venous thrombosis prophylaxis, subcutaneus on Lovenox. Total time spent in review of record, discussion with patient and spouse, who was at bedside greater than 60 minutes. EO/MODL Voice ID: [id number]
[2019-09-19 06:25] LABS: Absolute Lymphocytes (CBC) 2.4 K/uL (0.7-4.9); Basophils % 0.6 % (0-1.3); Hematocrit 35.4 % (36.0-45.0); Lymphocytes % 35.4 % (15.3-44.8); MPV 9.3 fL (7.6-11.3); RBC Red Blood Cell Count 3.88 M/uL (3.86-4.86)
[2019-09-19 06:36] LABS: Bilirubin Total 0.8 mg/dL (0.2-1.0); Potassium 4.2 mmol/L (3.5-5.1); Protein, Total 6.8 g/dL (6.4-8.2)
[2019-09-19] MEDS ORDERED: REGADENOSON 0.4 MG/5 ML SYR IV ONE (07:55)
[2019-09-19] MEDS ORDERED: INFLUENZA VACCINE (for 3y+) 0.5 ML DOSE IMVAC ONE (08:00)
[2019-09-19] MEDS ORDERED: ASPIRIN EC 81 MG TAB PO SCH (09:00)
[2019-09-19] MEDS: FAMOTIDINE 20 MG TAB PO SCH ×2 (09:39→20:08)
[2019-09-19] MEDS: ENOXAPARIN 40 MG/0.4 ML SQ SCH (09:39)
[2019-09-19] MEDS: NITROGLYCERIN 0.2 MG/HR (5 MG) PATCH TD SCH (09:39)
--- NOTE | 2019-09-19 11:24 | EKG ---
Test Date: 2019-09-19 Test Time: 09:49:04 Road[address] Technician: ELISEO MEASUREMENT RESULTS: Intervals: Rate: 73 CA: 136 QRSD: 72 QT: 396 QTc: 436 [place]: P: 47 CA: 136 QRS: 2 T: 5 INTERPRETIVE STATEMENTS: Sinus rhythm with sinus arrhythmia with occasional premature ventricular complexes Minimal voltage criteria for LVH, may be normal variant Septal infarct, age undetermined Abnormal ECG Compared to ECG 09/18/2019 11:18:01 Ventricular premature complex(es) now present Myocardial infarct finding now present T-wave abnormality no longer present Electronically Signed On 09-19-19 11:23:14 ETL TESTER by Iain Corrigan
--- NOTE | 2019-09-19 11:48 | TREADPHA ---
DX: CHEST PAIN Date of Study: 09/19/2019 Ht: 5 3 Wt: 277 lb 1.6 oz Consulting Physician: BENTLEY MEDICATIONS: LOVENOX, TYLENOL, APRESOLINE, AFLURIA, ZOFRAN HISTORY: 49 YEAR OLD FEMALE, COMLIANTS OF CHEST PAIN. HISTORY OF HIGH CHOLESTEROL, HYPERTENSION, NON-SMOKER, NON-DRINKER PHYSICIAL EXAMINATION: RESTING B.P.: 147/99 RESTING H.R.: 85 RESTING EKG: SINUS, POOR R WAVE PROGRESSION PROTOCOL: PHARMACOLOGIC EXERCISE TIME: 3:30 B.P. AT PEAK STRESS: 149/80 IMPRESSION: LEXISCAN INJECTED, FOLLOWED BY CARDIOLITE PER PROTOCOL. SEE NUCLEAR MEDICINE REPORT. NO SUPRAVENTRICULAR TACHYCARDIA, VENTRICULAR TACHYCARDIA, PREMATURE ATRIAL COMPLEXES. OCCASIONAL PREMATURE VENTRICULAR COMPLEXES. PATIENT REPORTS NO CHEST PAIN.
--- NOTE | 2019-09-19 12:00 | RAD REPORT ---
EXAM DESCRIPTION: NM - Rest Stress Cardiac Imaging - 09/19/2019 11:50 am CLINICAL HISTORY: Chest pain. COMPARISON: None. TECHNIQUE: The patient was administered approximately 10mCi of Tc 99m Sestamibi prior to resting SPE CT imaging of the heart. The patient was then administered approximately 30 mCi of Tc 99m Sestamibi f ollowing exercise or pharmacologic stress. Multiplanar SPECT images were reviewed. FINDINGS: Small area of diminished radiotracer uptake involves the inferior left ventricular myocar dium on stress images. This demonstrates normal radiotracer uptake on rest images. The remainder of the left ventricular myocardium demonstrates normal uptake. The left ventricular ejection fraction 64% IMPRESSION: Small reversible area of diminished radiotracer uptake involving the inferior left ventr icular myocardium may indicate stress-induced ischemia
--- NOTE | 2019-09-19 16:33 | PN ---
Date of Progress Note: 09/19/2019 History: Patient is seen and examined. Chart reviewed and case discussed with RN and Dr. Corrigan. Patient's cardiac stress test was positive, will need cardiac catheterization. Medications: List reviewed. Physical Examination: Vital Signs: Temperature 98.8, heart rate 95, blood pressure 149/85, respirations 18, O2 saturation 99% on room air. General: Awake, alert, oriented x3, in some mild distress. Morbidly obese female. CV: S1, S2. Regular rate and rhythm. Peripheral pulses present. Respiratory: Moving air well bilaterally. No wheezing or stridor. Gastrointestinal: Abdomen is soft, nontender, nondistended. Positive bowel sounds. Extremities: No clubbing, cyanosis, or edema. Neurologic: Nonfocal. Laboratory Data: Sodium 141, potassium 4.2, chloride 110, CO2 of 29, BUN 15, creatinine 0.84, glucose 111, calcium 8.7. Troponin less than 0.02 x3. WBC 6.7 , H and H 11.9 and 35.4, platelets 223, neutrophils 57%. Cardiac stress test shows small reversible area of diminished radiotracer uptake involving the inferior left ventricle myocardium, may indicate stress-induced ischemia. Pharmacological stress test; no SVT, V-tach, premature atrial complexes. Occasional premature ventricular complexes. No chest pain. Assessment: 1. A 49-year-old female with acute coronary syndrome. We will continue with chest pain guidelines. Appreciate Dr. Corrigan's input. He recommends cardiac catheterization. Patient has multiple risk factors including obesity, hypertension, hyperlipidemia. 2. Left arm and leg pain, unclear etiology, may be muscle spasms. Arterial ultrasound was done of the lower extremity, showing mild disease in the arteries of the mid and lower aspect of the left lower extremity. No high- grade stenosis was seen. 3. Essential hypertension. Continue home medications. 4. Hyperlipidemia. Continue statin. 5. Morbid obesity. BMI of 49. 6. Deep venous thrombosis prophylaxis with Lovenox. Plan: Cardiac cath in a.m. /CHUCKY Voice ID: [id number] Report ID: [id number] DAYANNA
--- NOTE | 2019-09-19 20:35 | CON ---
Date of Consultation: 09/19/2019 Patient admitted on 09/18/[address] Patino's service. I saw the patient on 09/19/2019. History Of Present Illness: Ms. Redding is 49. She has a past medical history of hypertension, chol esterol, and obesity. Does not have diabetes. Has a family history of heart disease with coronary a rtery disease at young age, including WPW in some of her family members. She takes lisinopril and Li pitor at home. She came in with chest pressure that radiates to the left upper shoulder with and wit hout exertion. No nausea, vomiting, diaphoresis, PND, orthopnea, pedal edema, palpitations, or synco pe. She had a normal EKG, normal chest x-ray. She had normal troponin and BNP, but her stress test that she had done today was positive consistent with inferior ischemia. Past Medical History: As stated above. Allergies: SHE IS ALLERGIC TO ASPIRIN. ASPIRIN GIVES HER A FUNNY SENSATION IN HER THROAT. SHE IS N OT ALLERGIC TO IODINE. Family History: Positive for coronary artery disease and WPW. Review of Systems: Negative. Social History: Negative for tobacco. Home Medications: Lisinopril and Lipitor. Physical Examination: Vital Signs: Stable. She was afebrile. General: She was in no acute distress. She was in sinus rhythm. She weighed 277 pounds. HEENT: Negative. Neck: Supple with no bruit. Chest: Clear. Cardiac: Revealed a regular rhythm and rate. No murmurs, gallops, or rubs. Abdomen: Obese, but benign. Extremities: Revealed no clubbing, cyanosis, or edema. Diagnostic Data: As stated earlier. She did have an arterial Doppler of her left lower extremity be cause of pain and that showed some mild peripheral arterial disease, but no significant stenosis. Impression And Plan: Chest pain that is fairly suggestive of coronary artery disease with chest pres sure going to the left arm. She has multiple cardiac risk factors, including her family history of h eart disease at a young age. She has hypertension, dyslipidemia, morbid obesity. She has a positive stress test with inferior ischemia. Her blood pressure and cholesterol are well controlled. Heart catheterization was suggested to Ms. Redding. She understand the risks and the benefits of the proce dure and she agrees to proceed. The catheterization will be done by my partner, Dr. Triston Branch in the morning. JUDY/CHUCKY Voice ID: [id number] Report ID: [id number]
[2019-09-20 05:29] LABS: Absolute Lymphocytes (CBC) 2.4 K/uL (0.7-4.9); Basophils % 0.3 % (0-1.3); Hematocrit 35.5 % (36.0-45.0); Lymphocytes % 34.8 % (15.3-44.8); MPV 9.3 fL (7.6-11.3); RBC Red Blood Cell Count 3.87 M/uL (3.86-4.86)
[2019-09-20] MEDS: ENOXAPARIN 40 MG/0.4 ML SQ SCH (09:00)
[2019-09-20] MEDS: FAMOTIDINE 20 MG TAB PO SCH (09:00)
[2019-09-20] MEDS: NITROGLYCERIN 0.2 MG/HR (5 MG) PATCH TD SCH (09:00)
[2019-09-20] MEDS ORDERED: NA CHLORIDE 0.9% 500 ML ONE (13:16)
[2019-09-20] MEDS ORDERED: HEPA 1000U/500MLS 2,000 UNIT/1,000 ML BAG IV ONE (13:37)
[2019-09-20] MEDS ORDERED: ATROPINE SULF 1 MG/10 ML SYR IV ONE (13:38)
[2019-09-20] MEDS ORDERED: NICARDIPINE HCL 25 MG/10 ML IV ONE (13:38)
[2019-09-20] MEDS ORDERED: FENTANYL CITR 100 MCG/2 ML ONE (13:38)
[2019-09-20] MEDS ORDERED: MIDAZOLAM HCL 2 MG/2 ML INJ ONE ×3 (13:38→14:29)
[2019-09-20] MEDS ORDERED: HEPARIN 5000 UNIT/ML 1 ML VIAL ONE (13:38)
[2019-09-20] MEDS ORDERED: NA CHLORIDE 0.9% 0 ML IV ONE (13:39)
[2019-09-20] MEDS ORDERED: LIDOCAINE 1% MPF 30 ML VIAL ONE (13:52)
[2019-09-20 16:21] VITALS: TEMP 97.6
[2019-09-20 17:24] VITALS: BP 134/93
[2019-09-20 17:26] VITALS: O2SAT 96
[2019-09-20] MEDS ORDERED: carvediloL 3.125 MG TAB PO SCH (18:00)
--- NOTE | 2019-09-20 21:37 | DS ---
Date of Discharge: 09/20/2019 Consultants: Dr. Corrigan and Dr. Branch with Cardiology. Procedures: Cardiac stress test on 09/19/2019, showed inferior ischemia. Cardiac catheterization on 09/20/2019, no stents placed. Admitting Diagnoses: 1.Atypical chest pain. 2.Left arm and neck pain. 3.Essential hypertension. 4.Morbid obesity. Discharge Diagnoses: 1.Acute coronary syndrome with inferior ischemia. 2.Left arm and neck pain, likely muscle spasms. Doubt deep venous thrombosis. 3.Essential hypertension, stable. 4.Mixed hyperlipidemia, continue statin. 5.Morbid obesity, BMI of 49. Hospital Course: The patient is a 49-year-old female with past medical history of hypertension, morb id obesity, hyperlipidemia, comes in with substernal chest pain. Patient also had some muscle spasms of her left arm and pain in her left leg, which was worse with activity. Patient was [facility] further workup. She was started on chest pain guidelines. Cardiac stress test was do ne. Her D-dimer was negative. Pulmonary embolism was not suspected. There is low threshold of susp icion for PE. Arterial Doppler was done on the lower extremity did not show any significant stenosis , doubt any sort of DVT. Patient was seen by Cardiology. Her stress test was positive, showed infer ior ischemia, therefore she was taken for cardiac catheterization given her intermittent chest pain a nd risk factors. She did not require any stents. Patient was then cleared for discharge from Cardio logy standpoint. Patient was then cleared for discharge, she was sent home in a stable condition. Activity: As tolerated. Medications: As per medication reconciliation list. Diet: Heart healthy. Followup: Follow up with primary care physician in 2-3 days. Follow up with vamp marker, Dr. Christa alejandre in 2 weeks. Return to ER for worsening condition. Patient will benefit from bariatric surgery. S he should be evaluated for bariatric surgery once her current symptoms have resolved. She understand s that due to her risk factors, comorbid conditions, and morbid obesity, she has elevated levels of m orbidity and mortality. Physical Examination: General: Awake, alert, and oriented x3. No acute distress. Morbidly obese female. CV: S1, S2. No murmurs. Respiratory: Moving air well bilaterally. Gastrointestinal: Abdomen is soft, nontender, nondistended. Positive bowel sounds. Extremities: No clubbing, cyanosis, or edema. Neurologic: Nonfocal. SA/MODL Voice ID: [id number] Report ID: [id number]
--- NOTE | 2019-09-20 21:58 | OP ---
Surgeon: Triston Branch MD Procedure: Left heart catheterization, coronary and left ventricular angiography. Findings: The patient has normal coronary arteries. Normal pressures. Normal left ventricular ejec tion fraction and wall motion. Therefore, it was a false-positive nuclear stress test. Procedure In Detail: The patient was brought to the cardiac laboratory development technician in a fasting, sedated with Vers ed and fentanyl, prepared and draped in usual sterile fashion. Right radial artery was used. Tissue s around the right radial artery were anesthetized with 1% lidocaine. The artery was entered using a 21-gauge needle, cannulated with a 0.021 inch diameter guidewire and then a 5/6-Congolese Terumo radial sheath was placed. Wire and introducer were removed. Sheath was flushed and the radial cocktail wa s given consisting of nicardipine, heparin, nitroglycerin. A TIG catheter was used to angiogram left ventricle and left coronary system. The right coronary system could not be engaged because of marke d tortuosity of the innominate artery. A 3DRC was tried and finally a 6-Congolese pigtail was placed in the aortic root to get adequate pictures of the right coronary. At the end of the procedure, the ca theter was withdrawn over a wire to keep them straight. The sheath was removed and the arteriotomy c losed with a TR band. Complications: None. Estimated Blood Loss: 10 mL. Truck Engine Assembler: Balbina Garcia. RITCHIE/CHUCKY Voice ID: [id number] Report ID: [id number]
[2019-09-21] MEDS ORDERED: CITALOPRAM 10 MG TABLET PO SCH (09:00)
[2019-09-21] MEDS ORDERED: lisinopriL 20 MG TAB PO SCH (09:00)
== END 2019-09-20 19:33 | disposition home or self-care (01) ==
LOC: ER 11:01 → OBSVTOIN 16:21 → ERHOLD 16:21 → INTOOBSV 16:21 → 2ND 16:56
PROVIDERS: ADMIT Internal Medicine; ATTEND Internal Medicine
PROC: 4A023N7 Measurement of Cardiac Sampling and Pressure, Left Heart, Percutaneous Approach (ICD-10-PCS; principal; 2019-09-20)
PROC: B201YZZ Plain Radiography of Multiple Coronary Arteries using Other Contrast (ICD-10-PCS; 2019-09-20)
PROC: B205YZZ Plain Radiography of Left Heart using Other Contrast (ICD-10-PCS; 2019-09-20)
DX: I24.9 Acute ischemic heart disease, unspecified (principal); I10 Essential (primary) hypertension; M79.602 Pain in left arm; M54.2 Cervicalgia; E78.2 Mixed hyperlipidemia; E66.01 Morbid (severe) obesity due to excess calories; Z68.42 Body mass index [BMI] 45.0-49.9, adult; Z23 Encounter for immunization; Z88.6 Allergy status to analgesic agent
CPT/HCPCS: 93005 ×2; 93017; 85025 ×3; 80048; 36415 ×2; 83735 ×2; 85610; 85379; 80076; 81003; 84484 ×3; 80053; 83880; 71045; 90471; 93567; 93458 ×2; 93926; 78452; 99285; C1893; J1644; Q2035; J1650; J2250 ×2; J3010; J2785; G0378 ×5; J7040; A9500; J0583

== ENCOUNTER 2021-04-28 15:47 | Emergency (ER) | payer OTHER ==
--- OUTSIDE RECORDS SUMMARY | 2021-04-28 15:51 | XMS REPORT | Continuity of Care Document ---
:1970 Author Organization [facility] t Address [address] [place] [address] Dr. Donnelly. [address] [place] [id number] Care Team Providers Name Role Phone Kassandra TAYLOR T. Primary Care Physician Yudelka Singleton MD Attending Clinician Payers Payer Name Policy Type Policy Number Effective Date Expiration Date S aleshia MULTIPLANALL [id number] 2016 [facility] IED/PHCS-MUL 00:00:00 Hospital TIPLANxxxxx1 [id number] Problems Condition Condition Condition Status Onset Resolution Last Treating Co mments Source Name Details Category Date Date Treatment Clinician Date DJD DJD Disease Active Overview: Method i (degenerat (degenerat 04-[address] [facility] 00:00: g of this H ospita disease), disease), 00 note l lumbar lumbar might be different from the original. on MRI Mixed Mixed Disease Active Methodi hyperlipid hyperlipid 04-27 emia emia 00:00: Hospita 00 l Anemia Anemia Disease Active Methodi 03-30 00:00: Hospita 00 l Morbid Morbid Disease Active Methodi obesity obesity 03-30 00:00: Hospita 00 l Prediabete Prediabete Disease Active M ethodi s s 03-30 00:00: Hospita 00 l Sleep Sleep Disease Active Methodi apnea apnea 11-18 00:00: Hospita 00 l Type 2 Type 2 Disease Active Methodi diabetes diabetes 11-18 mellitus mellitus 00:00: Hospit a with with 00 l complicati complicati on, on, without without long-term long-term current current use of use of insulin insulin Essential Essential Disease Active Met hodi hypertensi hypertensi 11-18 st on on 00:00: Hospita 00 l Menopause Menopause Disease Active Met hodi 11-18 st 00:00: Hospita 00 l Allergies, Adverse Reactions, Alerts Allergy Allergy Status Severity Reaction(s) Onset Inactive Treating Comm ents Source Name Type Date Date Clinician Aspirin Propensi Active Other (See Feels a Me thodi ty to Comments) 11-18 st adverse 00:00: sensation Hospit a reaction 00 in throat l s to drug Cheese Propensi Active Swelling Method i ty to 11-18 st adverse 00:00: Hospita reaction 00 l s to drug Family History Family Member Diagnosis Comments Start Date Stop Date Source Natural brother [facility] Natural daughter No Known Problems [facility] father Hypertension [facility] mother Arthritis [facility] mother Asthma [facility] mother Depression [facility] mother Diabetes [facility] mother Heart disease [facility] mother [facility]pertension [facility] Natural sister No Known Problems Met [facility] Natural son No Known Problems [facility] Social History Social Habit Start Date Stop Date Quantity Comments Source [facility] to Not sure [facility] ([facility] Tobacco use and 2020-10-07 2020-10-07 Never used [facility] exposure 00:00:00 00:00:00 Hospital Alcohol intake 2020-10-07 2020-10-07 Current [facility] 00:00:00 00:00:00 non-drinker of Hospital alcohol (finding) Sex Assigned At [birth year] F [facility] 00:00:00 00:00:00 Hospital Smoking Status Start Date Stop Date Source Never smoker [facility] Medications Ordered Filled Start Stop Current Ordering Indication Dosage Frequency Signature Comments Components Source Medication Medication Date Date Medication? Clinician (SIG) Name Name lisinopriL Yes [id number] Take 1 M ethodi (PRINIVIL) [address] 20 mg 00:00: mouth once Hospit a tablet 00 daily l pantoprazol Yes [id number] 40mg Q24H Take 1 Methodi e 2-08 tablet (40 st (Protonix) 00:00: mg total) Ho spita 40 MG EC 00 by mouth l tablet daily as needed (reflux). Dc ranitidine citalopram Yes [id number] 30mg QD Take 1.5 Methodi (CeleXA) 20 9-[address] MG tablet 00:00: (30 mg Hospit a 00 total) by l mouth daily. Increase dose atorvastati Yes [id number] 20mg QD Take 1 Methodi n (LIPITOR) 9- tablet (20 st 20 mg 00:00: mg total) Hospita tablet 00 by mouth l nightly. lisinopriL 2020- No [id number] 20mg QD Take 1 Methodi (PRINIVIL) 9- tablet (20 st 20 mg 00:00: 00:00 mg total) Hospit a tablet 00 :00 by mouth l daily. estradioL Yes .5mg QD Take 0.5 Meth heavenly (ESTRACE) 8-[address] 0.5 MG 00:00: mouth Hospita tablet 00 daily. l lisinopriL 2019- No [id number] Take 1 Methodi (PRINIVIL) 6-30 - tablet by st 20 mg 00:00: 00:00 mouth once Hospi ta tablet 00 :00 daily l cyclobenzap 2019- Yes [id number] 10mg QD Take 1 Methodi rine 3-30 tablet (10 st (FLEXERIL) 00:00: mg total) Ho spita 10 mg 00 by mouth l tablet nightly as needed for muscle spasms. pantoprazol 2020- No [id number] 40mg QD Take 1 Methodi e 3-30 02-08 tablet (40 st (Protonix) 00:00: 00:00 mg total) H ospita 40 MG EC 00 :00 by mouth l tablet daily. Dc ranitidine citalopram 2019- No [id number] 30mg QD Take 1.5 Methodi (CeleXA) 20 3-30 09-[address] MG tablet 00:00: 00:00 (30 mg Hospi ta 00 :00 total) by l mouth daily. Increase dose atorvastati 2018-08- No [id number] TAKE 1 Methodi n (LIPITOR) 0-30 05-[address] 20 MG 00:00: 00:00 MOUTH Hospita tablet 00 :00 NIGHTLY l flash 2020- No [id number] 1{each} QD 1 each Me thodi glucose 10-[address] scanning 00:00: 00:00 Hospita reader 00 :00 l (FREESTYLE DIXON 14 DAY READER) misc flash 2020- No [id number] 1{each} QD 1 each Me thodi glucose 10-[address] sensor 00:00: 00:00 Hospita (FREESTYLE 00 :00 l DIXON 14 DAY SENSOR) kit Immunizations Ordered Immunization Filled Immunization Date Status Commen ts Source Name Name Influenza (IM) 2019-09-19 Completed [facility] Preservative Free 00:00:00 Hospita l FLUZONE QUAD PF 2019-05-25 Completed [facility] 00:00:00 Hospital FLUZONE QUAD PF 2018-10-18 Completed [facility] 00:00:00 Hospital FLUZONE QUAD 2017-08-20 Completed [facility] 00:00:00 Hospital Pneumococcal 2013-03-12 Completed [facility] Polysaccharide 00:00:00 Hospital Vital Signs Vital Name Observation Time Observation Value Comments Source Systolic blood 2020-10-07 14:13:00 134 mm[Hg] [facility] pressure Diastolic blood 2020-10-07 14:13:00 84 mm[Hg] [facility] pressure Heart rate 2020-10-07 14:13:00 77 /min [facility] Body height 2020-10-07 14:13:00 160 cm [facility] Body weight 2020-10-07 14:13:00 126.1 kg [facility] BMI 2020-10-07 14:13:00 49.25 kg/m2 [facility] Procedures Procedure Date / Time Performing Clinician Source Performed MICROALBUMIN / CREATININE 2020-10-07 17:34:00 Alyssa Singleton [facility] URINE RATIO CBC WITH PLATELET AND 2020-10-07 17:34:00 Alyssa Singleton [facility] DIFFERENTIAL COMPREHENSIVE METABOLIC 2020-10-07 17:34:00 Alyssa Singleton [facility] PANEL HEMOGLOBIN A1C 2020-10-07 17:34:00 [facility] LIPID PANEL 2020-10-07 17:34:00 [facility] URINALYSIS, AUTOMATED 2020-10-07 17:34:00 [facility]CROSCOPIC EXAMINATION 2020-10-07 17:34:00 [facility] Plan of Care Planned Activity Planned Date Details Comments Source Future Scheduled Test COVID-19 VACCINE (1) [facility] [code = COVID-19 VACCINE (1)] Future Scheduled Test Hepatitis C screening [facility] (procedure) [code = 488240695] Future Scheduled Test COLONOSCOPY SCREENING [facility] [code = COLONOSCOPY SCREENING] Future Scheduled Test DIABETIC FOOT EXAM [facility] [code = DIABETIC FOOT EXAM] Future Scheduled Test DIABETES: RETINAL EYE [facility] EXAM [code = DIABETES: RETINAL EYE EXAM] Future Scheduled Test INFLUENZA VACCINE [code [facility] = INFLUENZA VACCINE] Future Scheduled Test SHINGLES VACCINES (#1) [facility] [code = SHINGLES VACCINES (#1)] Future Scheduled Test URINE MICROALBUMIN [facility] [code = URINE MICROALBUMIN] Future Scheduled Test BREAST CANCER SCREENING [facility] [code = BREAST CANCER SCREENING] Encounters Start End Encounter Admission Attending Care Care Encounter Source Date/Time Date/Time Type Type Clinicians Facility Department ID 2021-04-22 2021-04-22 Travel 1.2.840.1 [id number] Methodi 00:00:00 00:00:[address] 3.430.2.7 0.2.7.3.698 Ho spita .3.959217 084.8 l .8 2021-04-08 2021-04-08 Travel 1.2.840.1 1.2.972.505 [id number] Methodi 00:00:00 00:00:[address] 3.430.2.7 0.2.7.3.698 Ho spita .3.916268 084.8 l .8 2021-03-29 2021-03-29 Refill [facility], 1.2.840.1 [id number] Methodi 00:00:00 00:00:00 Alyss[address]ha [address] 3.430.2.7 Hospit a .3.407042 l .8 2020-10-07 2020-10-07 [facility], 1.2.840.1 [id number] Methodi 08:09:17 09:08:06 Visit Alyssa Jha 21142.1.[address] 3.430.2.7 Hospit a .3.649256 l .8 2020-10-07 2020-10-07 Travel 1.2.840.1 1.2.511.132 [id number] Methodi 00:00:00 00:00:[address] 3.430.2.7 0.2.7.3.698 Ho spita .3.363116 084.8 l .8 2020-10-07 2020-10-07 [facility] [id number] Egan 00:00:00 00:00:00 ALYSSA [address] 2020-09-17 2020-09-17 Travel 1.2.840.1 1.2.776.583 [id number] Methodi 00:00:00 00:00:[address] 3.430.2.7 0.2.7.3.698 Ho spita .3.786663 084.8 l .8 2020-05-01 2020-05-01 [facility], 1.2.840.1 [id number] Methodi 13:57:41 15:01:17 Visit Alyssa Jha 84544.1.[address] 3.430.2.7 Hospit a .3.358542 l .8 2020-05-01 2020-05-01 [facility] [id number] Egan 00:00:00 00:00:[address] 2020-05-01 2020-05-01 Travel 1.2.840.1 1.2.873.683 [id number] Methodi 00:00:00 00:00:[address] 3.430.2.7 0.2.7.3.698 Ho shreyata .3.444953 084.8 l .8 2019-11-27 2019-11-27 Outpatient KASSANDRA, [facility] [id number] Egan 00:00:00 00:00:00 ALYSSA [address] Results Test Description Test Time Test Comments Results Result Comments Source Microalbumin / creatinine urine ratio 2020-10-09 00:08:00 Test Item Value Reference Range Interpretation Comme nts Creatinine, urine, random 198.1 mg/dL Not Estab. (test code = 2161-8) Albumin, urine (test code = 7.7 ug/mL Not Estab. 20742-3) Microalbumin/creatinine ratio See_Comment [Automated message] The (test code = 9318-7) system which generated this result transmit leroy reference range: 0 - 29 m g/g creat. The reference range was not used to interpret th is result as normal/abnormal . CRISTINA (test code = CRISTINA) [facility] [id number] 23:08:00 Test Item Value Reference Range Interpretation Comments Hemoglobin A1C (test code = 4548-4) 5.6 % 4.8-5.6 CRISTINA (test code = CRISTINA) [facility], automated with [id number] 20:10:00 Test Item Value Reference Range Interpretation Comments Specific gravity, urine (test code 1.005-1.030 = 2965-2) pH, urine (test code = 5803-2) 5.0-7.5 Color, UA (test code = 5778-6) Yellow Yellow Appearance (test code = 5767-9) Clear Clear WBC esterase, urine (test code = Negative Negative 5799-2) Protein, UA (test code = 14132-0) Negative Negative/Trace Glucose, urine (test code = Negative Negative 2349-9) Ketones, UA (test code = 2514-8) Negative Negative Occult blood, urine (test code = Negative Negative 5794-3) Bilirubin, UA (test code = 5770-3) Negative Negative Urobilinogen, UA (test code = 0.2 mg/dL 0.2-1.0 33578-7) Nitrite, UA (test code = 5802-4) Negative Negative Microscopic examination (test code See below: = 68485-7) CRISTINA (test code = CRISTINA) [facility] [id number] 20:10:00 Test Item Value Reference Range Interpretation Comments WBC, UA (test code = 0-5 See_Comment [Autom ated message] 5821-4) The system [employer] generated this result transmitted ref erence range: 0 - 5 /h pf. The reference range was not used to interpr et this result as normal/abnormal . RBC, UA (test code = 0-2 See_Comment [Autom ated message] 80016-4) The system [employer] generated this result transmitted ref erence range: 0 - 2 /h pf. The reference range was not used to interpr et this result as normal/abnormal . Epithelial cells (non 0-10 See_Comment [Auto mated message] renal) (test code = The syst em which 5787-7) generated this result transmitted ref erence range: 0 - 10 / hpf. The reference range was not used to interpr et this result as normal/abnormal . Mucus, UA (test code = Present Not Estab. 8247-9) Bacteria, UA (test code Few None seen/Few = 5769-5) CRISTINA (test code = CRISTINA) [facility] metabolic [id number] 07:06:00 Test Item Value Reference Range Interpretation Comments Glucose (test code = 103 mg/dL 65-99 H 2345-7) BUN (test code = 13 mg/dL 6-24 3094-0) Creatinine (test code 0.78 mg/dL 0.57-1.00 = 2160-0) EGFR Non-Afr. 88 mL/min/1.73 >59 Zimbabwean (test code = 2775) EGFR 102 mL/min/1.73 >59 (test code = 2774) BUN/creatinine ratio 9-23 (test code = 3097-3) Sodium (test code = 141 mmol/L 318-042 3226-2) Potassium (test code 4.5 mmol/L 3.5-5.2 = 2823-3) Chloride (test code = 104 mmol/L 96-106 2075-0) CO2 (test code = 26 mmol/L 20-29 2027-) Calcium (test code = 9.4 mg/dL 8.7-10.2 75517-4) Protein (test code = 6.8 g/dL 6.0-8.5 2885-2) Albumin, S (test code 4.0 g/dL 3.8-4.9 = 1751-7) Globulin, total (test 2.8 g/dL 1.5-4.5 code = 17457-7) Albumin/globulin 1.2-2.2 ratio (test code = 1759-0) Total bilirubin (test 0.7 mg/dL 0.0-1.2 code = 1974-2) Alkaline phosphatase See_Comment [Autom ated (test code = 6768-6) message ] The system which generated this result transmit leroy reference range : 39 - 117 IU/L. The reference range was not used to interpret this result as normal/abnormal . AST (test code = See_Comment [Automated 1920-03) message] The system which generated this result transmit leroy reference range : 0 - 40 IU/L. The reference range was not used to interpret this result as normal/abnormal . ALT (test code = See_Comment [Automated 1742-01) message] The system which generated this result transmit leroy reference range : 0 - 32 IU/L. The reference range was not used to interpret this result as normal/abnormal . CRISTINA (test code = CRISTINA) Lab Interpretation Abnormal (test code = 05887-0) [facility] [id number] 07:06:00 Test Item Value Reference Range Interpretation Comments Cholesterol (test code = 2092-3) 121 mg/dL 100-199 Triglycerides (test code = 2571-8) 44 mg/dL 0-149 HDL cholesterol (test code = 44 mg/dL >39 5-9) VLDL cholesterol kiana (test code = 11 mg/dL 5-40 87949-0) LDL Chol Calc (NIH) (test code = 66 mg/dL 0-99 37592-1) Non-HDL cholesterol (test code = 77 mg/dL 0-129 06255-6) CRISTINA (test code = CRISTINA) [facility] with platelet and [id number] 06:06:00 Test Item Value Reference Range Interpretation Comments WBC (test code = 6690-2) See_Comment [A utomated message] The system [employer] generated this result transmit leroy reference range : 3.4 - 10.8 x10E3/uL . The reference range was not used to interpret this result as normal/abnormal . RBC (test code = 789-8) See_Comment [Au tomated message] The system [employer] generated this result transmit leroy reference range : 3.77 - 5.28 x10E6/uL. The reference range was not used to interpret this result as normal/abnormal . HGB (test code = 718-7) 12.8 g/dL 11.1-15.9 HCT (test code = 4544-3) 41.3 % 34.0-46.6 MCV (test code = 787-2) 92 fL 79-97 MCH (test code = 785-6) 28.5 pg 26.6-33.0 MCHC (test code = 786-4) 31.0 g/dL 31.5-35.7 L RDW (test code = 788-0) 13.2 % 11.7-15.4 Platelet count (test See_Comment [Autom ated message] code = 777-3) The system [employer] generated this result transmit leroy reference range : 150 - 450 x10E3/uL. The reference range was not used to interpret this result as normal/abnormal . Neutrophils (test code = 58 % Not Estab. 770-8) Lymphocytes (test code = 37 % Not Estab. 736-9) Monocytes (test code = 5 % Not Estab. 5905-5) Eosinophils (test code = 0 % Not Estab. 713-8) Basophils (test code = 0 % Not Estab. 706-2) Neutrophils, absolute See_Comment [Auto mated message] (test code = 751-8) The syst em which generated this result transmit leroy reference range : 1.4 - 7.0 x10E3/uL. The reference range was not used to interpret this result as normal/abnormal . Lymphocytes, absolute See_Comment [Auto mated message] (test code = 731-0) The syst em which generated this result transmit leroy reference range : 0.7 - 3.1 x10E3/uL. The reference range was not used to interpret this result as normal/abnormal . Monocytes, absolute See_Comment [Automa lreoy message] (test code = 742-7) The syst em which generated this result transmit leroy reference range : 0.1 - 0.9 x10E3/uL. The reference range was not used to interpret this result as normal/abnormal . Eosinophils, absolute See_Comment [Auto mated message] (test code = 711-2) The syst em which generated this result transmit leroy reference range : 0.0 - 0.4 x10E3/uL. The reference range was not used to interpret this result as normal/abnormal . Basophils, absolute See_Comment [Automa leroy message] (test code = 704-7) The syst em which generated this result transmit leroy reference range : 0.0 - 0.2 x10E3/uL. The reference range was not used to interpret this result as normal/abnormal . Immature granulocytes 0 % Not Estab. (test code = 62208-6) Immature grans (abs) See_Comment [Autom ated message] (test code = 43589-8) The sy stem which generated this result transmit leroy reference range : 0.0 - 0.1 x10E3/uL. The reference range was not used to interpret this result as normal/abnormal . CRISTINA (test code = CRISTINA) Lab Interpretation (test Abnormal code = 16077-1) [facility]
--- NOTE | 2021-04-28 17:10 | RAD REPORT ---
EXAM DESCRIPTION: Prashant Ayala (2 Views)04/28/2021 4:59 pm CLINICAL HISTORY: sob COMPARISON: 2019 FINDINGS: The lungs appear clear of acute infiltrate. The heart is normal size IMPRESSION: No acute abnormalities displayed
[2021-04-28 18:19] LABS: Absolute Lymphocytes (CBC) 3.1 K/uL (0.7-4.9); Basophils % 0.4 % (0-1.3); Hematocrit 38.3 % (36.0-45.0); MPV 8.9 fL (7.6-11.3); Protime INR 1.09; RBC Red Blood Cell Count 4.18 M/uL (3.86-4.86)
[2021-04-28 18:24] LABS: SARS-COV-2 RT PCR NEGATIVE (NEGATIVE)
[2021-04-28 18:32] LABS: ALT/SGPT 23 U/L (12-78); AST/SGOT 12 U/L (15-37); Albumin 3.4 g/dL (3.4-5.0); Alkaline Phosphatase 104 U/L (45-117); BUN Blood Urea Nitrogen 16 mg/dL (7-18); Bicarbonate 29 mmol/L (21-32); Bilirubin Direct 0.2 mg/dL (0-0.2); Bilirubin Total 0.6 mg/dL (0.2-1.0); Glucose Level 90 mg/dL (74-106); Magnesium 2.1 mg/dL (1.8-2.4); NT PRO-BNP 17 pg/mL (<125); Potassium 4.2 mmol/L (3.5-5.1); Protein, Total 7.7 g/dL (6.4-8.2); Sodium Level 142 mmol/L (136-145); Troponin (Emerg Dept Use Only) < 0.02 ng/mL (0.0-0.045)
--- NOTE | 2021-04-28 21:01 | ER ---
Nurse's Notes [facility] Name: Iliana Redding Age: 50 yrs Sex: Female : 1970 Arrival Date: 04/28/2021 Time: 15:51 Bed DX2 Private MD: Diagnosis: Chest pain, unspecified;Cough Presentation: 04/28 16:30 Chief complaint: Productive cough and SOB x 1 month. SOB is worse when supine. Denies hb fever/N/V/D. Negative COVID test April 17. Coronavirus screen: Client presents with at least one sign or symptom that may indicate coronavirus-19. Standard/surgical mask placed on the client. Provider contacted for isolation considerations. Ebola Screen: No symptoms or risks identified at this time. Initial Sepsis Screen: Does the patient meet any 2 criteria? No. Patient's initial sepsis screen is negative. Does the patient have a suspected source of infection? No. Patient's initial sepsis screen is negative. Risk Assessment: Do you want to hurt yourself or someone else? Patient reports no desire to harm self or others. Onset of symptoms was March 2021. 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 - Social history:: Smoking status: Patient denies any tobacco usage or history of. Screenin:15 Abuse screen: Denies threats or abuse. Denies injuries from another. Nutritional ld1 screening: No deficits noted. Tuberculosis screening: No symptoms or risk factors identified. Fall Risk None identified. Assessment: 20:15 General: Appears in no apparent distress. comfortable, Behavior is calm, cooperative, ld1 appropriate for age. Pain: Denies pain. Pain: Complains of pain in chest Pain does not radiate. Pain currently is 5 out of 10 on a pain scale. Quality of pain is described as throbbing, Pain began 1 day ago. Is intermittent. Neuro: Level of Consciousness is awake, alert, obeys commands, Oriented to person, place, time, situation. Cardiovascular: Capillary refill < 3 seconds Patient's skin is warm and dry. Rhythm is regular. Vital Signs: 16:30 BP 186 / 106; Pulse 89; Resp 18; Temp 97.7; Pulse Ox 97% on R/A; Pain 5/10; hb 20:29 BP 149 / 79; Pulse 75; Resp 18; Temp 97.8; Pulse Ox 97% on R/A; Pain 0/10; ld1 ED Course: 15:51 Patient arrived in ED. as 16:33 Triage completed. hb 16:34 Arm band placed on. hb 16:58 Chest Pa And Lat (2 Views) XRAY In Process Unspecified. EDMS 17:30 Yenny Maldonado FNP-C is PHCP. kb 17:30 Camron Verdugo MD is Attending Physician. kb 17:34 Andra Turner, JESS is Primary Nurse. iw 18:06 Basic Metabolic Panel Sent. mh5 18:06 CBC with Diff Sent. mh5 18:06 LFT's Sent. mh5 18:06 Magnesium Sent. mh5 18:06 NT PRO-BNP Sent. mh5 18:06 PT-INR Sent. mh5 18:06 Troponin (emerg Dept Use Only) Sent. mh5 18:52 Patient has correct armband on for positive identification. mh5 19:36 Primary Nurse role handed off by Andra Turner RN mw2 19:56 Troponin (emerg Dept Use Only) Sent. ld1 20:15 Pulse ox on. NIBP on. ld1 20:15 No provider procedures requiring assistance completed. Patient did not have IV access ld1 during this emergency room visit. Patient maintains SpO2 saturation greater than 95% on room air. Administered Medications: No medications were administered Outcome: 20:15 Discharged to home ambulatory. ld1 20:15 Condition: stable 20:15 Discharge instructions given to patient, Instructed on discharge instructions, follow up and referral plans. medication usage, Demonstrated understanding of instructions, follow-up care, medications. 21:00 Discharge ordered by . kb 21:21 Patient left the ED. ld1 Signatures: Dispatcher [employer] EDTX Yenny Maldonado FNP-C FNP-Cora Abrams as Andra Turner, RN RN iw Sandi Anthony, RN RN Agnes Roberto [address] Kaylin Higgins, JESS RN ld1
--- NOTE | 2021-04-28 21:01 | EDPHYS ---
Physician Documentation [facility] Name: Iliana Redding Age: 50 yrs Sex: Female : 1970 Arrival Date: 04/28/2021 Time: 15:51 Bed DX2 Private MD: ED Physician Camron Verdugo HPI: 04/28 21:05 This 50 yrs old Black Female presents to ER via Ambulatory with complaints of Chest kb Tightness, Chest Congestion, Shortness Of Breath, Cough. 21:05 The patient or guardian reports cough, that is intermittent, described as moderate, kb with productive sputum, difficulty breathing. Onset: The symptoms/episode began/occurred 1 month(s) ago. Severity of symptoms: At their worst the symptoms were moderate, in the emergency department the symptoms are unchanged. Modifying factors: The symptoms are alleviated by nothing, the symptoms are aggravated by nothing. Associated signs and symptoms: Pertinent positives: chest pain, Pertinent negatives: diarrhea, ear ache, fever, nausea, rhinorrhea, sore throat, vomiting. The patient has not experienced similar symptoms in the past. The patient has not recently seen a physician. 21:05 Pt reports cough that is productive with intermittent shortness of breath and chest kb tightness that started a month ago. 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 - Social history:: Smoking status: Patient denies any tobacco usage or history of. ROS: 21:04 Constitutional: Negative for fever, chills, and weight loss. kb 21:04 Cardiovascular: Positive for chest pain, with cough, Negative for edema, orthopnea, palpitations, paroxysmal nocturnal dyspnea. 21:04 Respiratory: Positive for cough, with no reported sputum, shortness of breath. 21:04 All other systems are negative. Exam: 21:01 Constitutional: This is a well developed, well nourished patient who is awake, alert, kb and in no acute distress. Head/Face: Normocephalic, atraumatic. ENT: Moist Mucous membranes Cardiovascular: Regular rate and rhythm with a normal S1 and S2. No gallops, murmurs, or rubs. No pulse deficits. Respiratory: Respirations even and unlabored. No increased work of breathing, no retractions or nasal flaring. Abdomen/GI: Soft, non-tender. No distention Skin: Warm, dry with normal turgor. Normal color. MS/ Extremity: Pulses equal, no cyanosis. Neurovascular intact. Full, normal range of motion. Neuro: Awake and alert, GCS 15, oriented to person, place, time, and situation. Moves all extremities. Normal gait. Psych: Awake, alert, with orientation to person, place and time. Behavior, mood, and affect are within normal limits. 21:01 ECG was reviewed by the Attending Physician. Vital Signs: 16:30 BP 186 / 106; Pulse 89; Resp 18; Temp 97.7; Pulse Ox 97% on R/A; Pain 5/10; hb 20:29 BP 149 / 79; Pulse 75; Resp 18; Temp 97.8; Pulse Ox 97% on R/A; Pain 0/10; ld1 MDM: 17:30 Patient medically screened. kb 21:04 Data reviewed: vital signs, nurses notes. Data interpreted: Pulse oximetry: on room air kb is 97 %. Interpretation: normal. Counseling: I had a detailed discussion with the patient and/or guardian regarding: the historical points, exam findings, and any diagnostic results supporting the discharge/admit diagnosis, lab results, radiology results, the need for outpatient follow up, a family practitioner, to return to the emergency department if symptoms worsen or persist or if there are any questions or concerns that arise at home. 04/28 17:31 Order name: Basic Metabolic Panel; Complete Time: 18:33 kb 04/28 17:31 Order name: CBC with Diff; Complete Time: 18:28 kb 04/28 17:31 Order name: LFT's; Complete Time: 18:33 kb 04/28 17:31 Order name: Magnesium; Complete Time: 18:33 kb 04/28 16:35 Order name: Chest Pa And Lat (2 Views) XRAY; Complete Time: 17:31 hb 04/28 17:31 Order name: NT PRO-BNP; Complete Time: 18:33 kb 04/28 17:31 Order name: PT-INR; Complete Time: 18:28 kb 04/28 17:31 Order name: Troponin (emerg Dept Use Only); Complete Time: 18:33 kb 04/28 17:31 Order name: EKG; Complete Time: 17:31 kb 04/28 18:25 Order name: COVID-19/FLU A+B; Complete Time: 18:28 EDMS 04/28 19:30 Order name: Troponin (emerg Dept Use Only) kb 04/28 19:31 Order name: Troponin (Emerg Dept Use Only); Complete Time: 20:17 EDMS 04/28 17:31 Order name: EKG - Nurse/Tech; Complete Time: 18:51 kb 04/28 17:31 Order name: IV Saline Lock; Complete Time: 19:56 kb 04/28 17:31 Order name: Labs collected and sent; Complete Time: 18:06 kb 04/28 17:31 Order name: O2 Per Protocol; Complete Time: 19:21 kb 04/28 17:31 Order name: O2 Sat Monitoring; Complete Time: 19:21 kb 04/28 20:17 Order name: EKG; Complete Time: 20:18 kb 04/28 20:17 Order name: EKG - Nurse/Tech; Complete Time: 20:40 kb 04/28 20:18 Order name: Vital Signs; Complete Time: 20:30 kb EC:01 Rate is 70 beats/min. Rhythm is regular. QRS [place] is Normal. [place] interval is normal at kb 168 msec. QRS interval is normal at 70 msec. QT interval is normal at 392 msec. Administered Medications: No medications were administered Disposition: 04/29 07:54 Co-signature as Attending Physician, Camron Verdugo MD I agree with the assessment and marry plan of care. Disposition Summary: 04/28/21 21:00 Discharge Ordered Location: Home kb Condition: Stable kb Diagnosis - Chest pain, unspecified kb - Cough kb Followup: kb - With: Emergency Department - When: As needed - Reason: Worsening of condition Followup: kb - With: Private Physician - When: 2 - 3 days - Reason: Recheck today's complaints, Continuance of care, Re-evaluation by your physician Discharge Instructions: - Discharge Summary Sheet kb - Nonspecific Chest Pain, Adult, [id number] kb - Cough, Adult, [id number] kb Forms: - Medication Reconciliation Form kb - Thank You Letter kb - Antibiotic Education kb - Prescription Opioid Use kb Prescriptions: - Tessalon Perles 100 mg Oral Capsule - take 1 capsule by ORAL route every 8 hours As needed; 15 capsule; Refills: 0, kb Product Selection Permitted Signatures: Dispatcher [employer] EDMS Yenny Maldonado, PVC LOADER-C KIYA-Camron Lee MD MD cha Baxter, Heather, RN RN Corrections: (The following items were deleted from the chart) 04/28 17:15 16:36 Influenza Screen (A \T\ B)+BA.LAB.BRZ ordered. EDMS EDMS 17:15 16:36 CORONAVIRUS+MR.LAB.BRZ ordered. EDMS EDMS
[2021-04-28 21:44] VITALS: O2SAT 97
[2021-04-28 21:46] VITALS: BP 149/79; TEMP 97.8
--- NOTE | 2021-04-29 16:13 | EKG ---
Test Date: 2021-04-28 Test Time: 20:35:46 Window Framer: VITA MEASUREMENT RESULTS: Intervals: Rate: 66 IA: 166 QRSD: 68 QT: 412 QTc: 431 [place]: P: 53 IA: 166 QRS: 38 T: 29 INTERPRETIVE STATEMENTS: Normal sinus rhythm Cannot rule out Anterior infarct, age undetermined Abnormal ECG Compared to ECG 04/28/2021 18:46:28 No significant changes Electronically Signed On 04-29-21 16:11:38 CDT by Iain Corrigan
--- NOTE | 2021-04-29 16:13 | EKG ---
Test Date: 2021-04-28 Test Time: 18:46:28 Solar Consultant: VITA MEASUREMENT RESULTS: Intervals: Rate: 70 MS: 168 QRSD: 70 QT: 392 QTc: 423 [place]: P: 55 MS: 168 QRS: 32 T: 35 INTERPRETIVE STATEMENTS: Normal sinus rhythm Cannot rule out Anterior infarct, age undetermined Abnormal ECG Compared to ECG 09/19/2019 09:49:04 Sinus arrhythmia no longer present Ventricular premature complex(es) no longer present Left ventricular hypertrophy no longer present Myocardial infarct finding still present Electronically Signed On 04-29-21 16:11:42 CDT by Iain Corrigan
== END 2021-04-28 21:21 | disposition home or self-care (01) ==
LOC: ER 15:47
DX: R05 Cough (principal); E78.00 Pure hypercholesterolemia, unspecified; I10 Essential (primary) hypertension; Z88.6 Allergy status to analgesic agent; Z20.822 Contact with and (suspected) exposure to COVID-19
CPT/HCPCS: 93005 ×2; 85025; 80048; 36415; 83735; 85610; 80076; 84484 ×2; 83880; 0240U; 71046; 99284

== ENCOUNTER 2021-05-27 15:58 | Emergency (ER) | payer OTHER ==
--- NOTE | 2021-05-27 16:26 | EDPHYS ---
Physician Documentation [facility] Name: Iliana Redding Age: 50 yrs Sex: Female : 1970 Arrival Date: 05/27/2021 Time: 16:00 Bed 11 Private MD: ED Physician Camron Verdugo HPI: 05/27 16:27 This 50 yrs old Black Female presents to ER via Ambulatory with complaints of facial jr8 Swelling-Itching. 16:27 This is a 50-year-old female that presented to the emergency room with complaints of jr8 hives and itching. Stated that it started on this past Wednesday and has continued despite [id number] Benadryl. Maybe thinks that it may be related to a change in detergent but otherwise does not know why it continued. Denies any other symptoms at this time.. Severity of symptoms: At their worst the symptoms were mild in the emergency department the symptoms are unchanged. The patient has not experienced similar symptoms in the past. The patient has not recently seen a physician. Historical: - Immunization history:: Adult Immunizations up to date. - Social history:: Smoking status: Patient denies any tobacco usage or history of. ROS: 16:27 Constitutional: Negative for fever, chills, and weight loss, ENT: Negative for injury, jr8 pain, and discharge, Cardiovascular: Negative for chest pain, palpitations, and edema, Respiratory: Negative for shortness of breath, cough, wheezing, and pleuritic chest pain, Abdomen/GI: Negative for abdominal pain, nausea, vomiting, diarrhea, and constipation, Neuro: Negative for headache, weakness, numbness, tingling, and seizure. 16:27 Skin: Positive for rash. Exam: 16:27 Constitutional: This is a well developed, well nourished patient who is awake, alert, jr8 and in no acute distress. Eyes: Pupils equal round and reactive to light, extra-ocular motions intact. Lids and lashes normal. Conjunctiva and sclera are non-icteric and not injected. Cornea within normal limits. Periorbital areas with no swelling, redness, or edema. ENT: Nares patent. No nasal discharge, no septal abnormalities noted. Tympanic membranes are normal and external auditory canals are clear. Oropharynx with no redness, swelling, or masses, exudates, or evidence of obstruction, uvula midline. Mucous membranes moist. Cardiovascular: Regular rate and rhythm with a normal S1 and S2. No gallops, murmurs, or rubs. Normal PMI, no JVD. No pulse deficits. Respiratory: Lungs have equal breath sounds bilaterally, clear to auscultation and percussion. No rales, rhonchi or wheezes noted. No increased work of breathing, no retractions or nasal flaring. MS/ Extremity: Pulses equal, no cyanosis. Neurovascular intact. Full, normal range of motion. Neuro: Awake and alert, GCS 15, oriented to person, place, time, and situation. Cranial nerves II-XII grossly intact. Motor strength 5/5 in all extremities. Sensory grossly intact. 16:27 Skin: Patient has few scattered hives present to the right cheek.. Vital Signs: 16:10 BP 113 / 85; Pulse 97; Resp 99; Temp 97.3; Pulse Ox 99% ; Weight 124.28 kg; Height 5 ch5 ft. 3 in. (160.02 cm); Pain 0/10; 16:10 Body Mass Index 48.54 (124.28 kg, 160.02 cm) ch5 MDM: 16:19 Patient medically screened. jr8 16:25 Data reviewed: vital signs, nurses notes, and as a result, I will discharge patient. jr8 Data interpreted: Pulse oximetry: on room air is 99 %. Interpretation: normal. Counseling: I had a detailed discussion with the patient and/or guardian regarding: the historical points, exam findings, and any diagnostic results supporting the discharge/admit diagnosis, the need for outpatient follow up, a family practitioner, to return to the emergency department if symptoms worsen or persist or if there are any questions or concerns that arise at home. Administered Medications: 16:35 Drug: SOLU-Medrol (methylPREDNISolone sodium succinate) 125 mg Route: IM; Site: right ch5 ventrogluteal; Disposition Summary: 05/27/21 16:26 Discharge Ordered Location: Home jr8 Problem: new jr8 Symptoms: have improved jr8 Condition: Stable jr8 Diagnosis - Allergic urticaria jr8 Followup: jr8 - With: Private Physician - When: 2 - 3 days - Reason: Recheck today's complaints, Continuance of care, Re-evaluation by your physician Discharge Instructions: - Discharge Summary Sheet jr8 - Hives jr8 Forms: - Medication Reconciliation Form jr8 - Thank You Letter jr8 - Antibiotic Education jr8 - Prescription Opioid Use jr8 Prescriptions: - Prednisone 20 mg Oral Tablet - take 1 tablet by ORAL route once daily for 5 days; 5 tablet; Refills: 0, jr8 Product Selection Permitted Addendum: 05/29/2021 10:56 Co-signature as Attending Physician, Camron Verdugo MD I agree with the assessment and c baker plan of care. Signatures: Camron Verdugo MD MD cha Roszak, Josh, PA PA jr8 Fernando Haynes RN RN ch5 Corrections: (The following items were deleted from the chart) 05/27 16:15 16:15 PMHx: High Cholesterol; ch5 ch5 16:15 16:15 PMHx: Hypertension; ch5 ch5
--- NOTE | 2021-05-27 16:26 | ER ---
Nurse's Notes [facility] Name: Iliana Redding Age: 50 yrs Sex: Female : 1970 Arrival Date: 05/27/2021 Time: 16:00 Bed 11 Private MD: Diagnosis: Allergic urticaria Presentation: 05/27 16:10 Chief complaint: Patient states: Rash and hives to Right side of face starting on Sat ch5 05/23/21. Only allergy is to cheese. cleaning garage out that day. Coronavirus screen: Vaccine status: Patient reports receiving the 2nd dose of the covid vaccine. Ebola Screen: Patient negative for fever greater than or equal to 101.5 degrees Fahrenheit, and additional compatible Ebola Virus Disease symptoms Patient denies exposure to infectious person. Patient denies travel to an Ebola-affected area in the 21 days before illness onset. Initial Sepsis Screen: Does the patient meet any 2 criteria? No. Patient's initial sepsis screen is negative. Risk Assessment: Do you want to hurt yourself or someone else? Patient reports no desire to harm self or others. Onset of symptoms was May 23, 2021. 16:10 Method Of Arrival: Ambulatory 5 16:10 Acuity: OCHOA 4 ch5 Triage Assessment: 16:15 General: Appears in no apparent distress. Behavior is calm, cooperative. Derm: Rash ch5 noted that is on right cheek. Historical: - Immunization history:: Adult Immunizations up to date. - Social history:: Smoking status: Patient denies any tobacco usage or history of. Screenin:47 Abuse screen: Denies threats or abuse. Denies injuries from another. Nutritional 5 screening: No deficits noted. Tuberculosis screening: No symptoms or risk factors identified. Fall Risk None identified. Assessment: 16:47 Reassessment: No changes from previously documented assessment. 5 Vital Signs: 16:10 BP 113 / 85; Pulse 97; Resp 99; Temp 97.3; Pulse Ox 99% ; Weight 124.28 kg; Height 5 ch5 ft. 3 in. (160.02 cm); Pain 0/10; 16:10 Body Mass Index 48.54 (124.28 kg, 160.02 cm) 5 ED Course: 16:00 Patient arrived in ED. ds1 16:15 Triage completed. 5 16:16 Arm band placed on right wrist. ch5 16:19 Sukhwinder Delgado PA is PHCP. jr8 16:19 Camron Verdugo MD is Attending Physician. jr8 16:37 Fernando Haynes, JESS is Primary Nurse. ch5 16:47 Call light in reach. ch5 16:47 No provider procedures requiring assistance completed. Patient did not have IV access ch5 during this emergency room visit. Administered Medications: 16:35 Drug: SOLU-Medrol (methylPREDNISolone sodium succinate) 125 mg Route: IM; Site: right ch5 ventrogluteal; Outcome: 16:26 Discharge ordered by . jr8 16:47 Discharged to home ambulatory, with family. ch5 16:47 Condition: good 16:47 Discharge instructions given to patient, family, Prescriptions given X 1. 16:48 Patient left the ED. ch5 Signatures: Beaulieu, Miri ds1 Sukhwinder Delgado PA PA jr8 Fernando Haynes, RN RN ch5 Corrections: (The following items were deleted from the chart) 16:15 16:15 PMHx: High Cholesterol; ch5 ch5 16:15 16:15 PMHx: Hypertension; ch5 ch5
[2021-05-27 16:53] VITALS: BP 113/85; TEMP 97.3; O2SAT 99
[2021-05-27] MEDS ORDERED: METHYLPREDNISOLONE 125 MG INJ ONE (17:04)
== END 2021-05-27 16:48 | disposition home or self-care (01) ==
LOC: ER 15:58
DX: L50.0 Allergic urticaria (principal)
CPT/HCPCS: 96372; 99283; J2930

== ENCOUNTER 2021-08-28 18:52 | Emergency (ER) | payer OTHER ==
--- OUTSIDE RECORDS SUMMARY | 2021-08-28 18:56 | XMS REPORT | Continuity of Care Document ---
:1970 Author Organization [facility] Address [address] [place] [address] Care Team Providers Name Role Phone Radha Singleton MD. Primary Care Physician KASSANDRA Attending Clinician Unavailable Buster RN, P Attending Clinician Unavailable Doctor Unassigned, Name Attending Clinician Unavailable Payers Payer Name Policy Type Policy Number Effective Date Expiration Date S aleshia MULTIPLANALL [id number] 2016 [facility] IED/PHCS-MUL 00:00:00 [facility] [id number] 2016- PresentPPO Problems Condition Condition Condition Status Onset Resolution Last Treating Co mments Source Name Details Category Date Date Treatment Clinician Date Spondylosi Spondylosi Disease Active Overview : [facility] lumbar lumbar 00:00: g of this [facility] spine spine 00 note l might be different from the original. on MRI Mixed Mixed Disease Active Methodi hyperlipid hyperlipid 04-27 emia emia 00:00: Hospita 00 l Anemia Anemia Disease Active Methodi 03-30 st 00:00: Hospita 00 l Anemia Anemia Disease Active Univers 3- ity of 00:00: [address] Branch Type 2 Type 2 Disease Active Univers diabetes diabetes 11-18 ity of mellitus mellitus 00:00: [place] with with 00 Medical complicati complicati Br anch on, on, without without long-term long-term current current use of use of insulin insulin Essential Essential Disease Active Uni vers hypertensi hypertensi 3- it y of on on 00:00: [place] 00 Medical Branch Sleep Sleep Disease Active Univers apnea, apnea, 11-18 ity of [place]specif[place] d type 00 Medical [place] Menopause Menopause Disease Active Uni vers 11-18 ity of 00:00: [place] 00 Medical Branch Morbid Morbid Disease Active Univers obesity obesity ity of [facility] Prediabete Prediabete Disease Active U nivers s s ity of [facility] Allergies, Adverse Reactions, Alerts Allergy Allergy Status Severity Reaction(s) Onset Inactive Treating Comm ents Source Name Type Date Date Clinician Aspirin Propensi Active Other - See Feels a U nivers ty to comments 11-18 needle ity of adverse 00:00: sensation [place] reaction 00 in throat Medic al s Branch Cheese Propensi Active Swelling Univer s ty to 11-18 ity of adverse 00:00: [place] reaction 00 Medical s Branch ASPIRIN DRUG Active Other-Cmnt Unive rs INGREDI 11-18 ity of 00:00: [place] 00 Medical Branch CHEESE DRUG Active Hives Univers INGREDI 11-18 ity of 00:00: [place] 00 Medical Branch Aspirin Propensi Active Other (See Feels a Me thodi ty to Comments) 11-[address] adverse 00:00: sensation Hospit a reaction 00 in throat l s to drug Cheese Propensi Active Swelling Method i ty to 11-18 st adverse 00:00: Hospita reaction 00 l s to drug Family History Family Member Diagnosis Comments Start Date Stop Date Source Natural brother [facility] Natural daughter No Known Problems [facility] Natural father Hypertension [facility] mother Arthritis [facility] mother Asthma [facility] mother Depression [facility] mother Diabetes [facility] mother Heart disease [facility] Natural mother Hypertension [facility] Natural sister No Known Problems Met [facility] Natural son No Known Problems Method [facility] Social History Social Habit Start Date Stop Date Quantity Comments Source Exposure to Not sure [facility] SARS-CoV-2 (event) Tobacco use and 2017-09-23 2017-09-23 Never used Universit y of exposure 00:00:00 00:00:00 [facility] Alcohol intake 2017-09-23 2017-09-23 Current University of 00:00:00 00:00:00 non-drinker of [facility] [facility] alcohol Branch (finding) Sex Ass[birth year] At [birth year] Universit y of 00:00:00 00:00:00 [facility] Smoking Status Start Date Stop Date Source Never smoker [facility] Medications Ordered Filled Start Stop Current Ordering Indication Dosage Frequency Signature Comments Components Source Medication Medication Date Date Medication? Clinician (SIG) Name Name lisinopriL Yes [id number] Take 1 M ethodi (PRINIVIL) -[address] 20 mg 00:00: mouth once Hospit a tablet 00 daily l pantoprazol Yes [id number] 40mg Q24H Take 1 Methodi e 2-08 tablet (40 st (Protonix) 00:00: mg total) Ho spita 40 MG EC 00 by mouth l tablet daily as needed (reflux). Dc ranitidine atorvastati Yes [id number] 20mg QD Take 1 Methodi n (LIPITOR) 05-01 tablet (20 st 20 mg 00:00: mg total) Hospita tablet 00 by mouth l nightly. citalopram Yes [id number] 30mg QD Take 1.5 Methodi (CeleXA) 20 - tablets st MG tablet 00:00: (30 mg Hospit a 00 total) by l mouth daily. Increase dose lisinopriL No [id number] 20mg QD Take 1 Methodi (PRINIVIL) 05-01- tablet (20 st 20 mg 00:00: 00:00 mg total) Hospit a tablet 00 :00 by mouth l daily. estradioL Yes .5mg QD Take 0.5 Meth heavenly (ESTRACE) 8-[address] 0.5 MG 00:00: mouth Hospita tablet 00 daily. l lisinopriL 2019- No [id number] Take 1 Methodi (PRINIVIL) 6-30 - tablet by st 20 mg 00:00: 00:00 mouth once Hospi ta tablet 00 :00 daily l cyclobenzap 2019- Yes [id number] 10mg QD Take 1 Methodi rine 3-30 tablet (10 st (FLEXERIL) 00:00: mg total) Ho spita 10 mg 00 by mouth l tablet nightly as needed for muscle spasms. pantoprazol 2020- No [id number] 40mg QD Take 1 Methodi e 3-30 -08 tablet (40 st (Protonix) 00:00: 00:00 mg total) H ospita 40 MG EC 00 :00 by mouth l tablet daily. Dc ranitidine citalopram 2019- No [id number] 30mg QD Take 1.5 Methodi (CeleXA) 20 3-30 - tablets st MG tablet 00:00: 00:00 (30 mg Hospi ta 00 :00 total) by l mouth daily. Increase dose atorvastati 2018-08- No [id number] TAKE 1 Methodi n (LIPITOR) 0-30 - TABLET BY st 20 MG 00:00: 00:00 MOUTH Hospita tablet 00 :00 NIGHTLY l flash 2019- No [id number] 1{each} QD 1 each Me thodi glucose 2-19 - daily. st scanning 00:00: 00:00 Hospita reader 00 :00 l (FREESTYLE DIXON 14 DAY READER) misc flash 2019- No [id number] 1{each} QD 1 each Me thodi glucose 2-18 05- daily. st sensor 00:00: 00:00 Hospita (FREESTYLE 00 :00 l DIXON 14 DAY SENSOR) kit ATORVASTATI Yes [id number] TAKE ONE Univers N 20 mg 5-23 TABLET BY ity of tablet 00:00: MOUTH AT [place] 00 BEDTIME Medical Branch ATORVASTATI Yes [id number] TAKE ONE Univers N 20 mg 5-23 TABLET BY ity of tablet 00:00: MOUTH AT [place] 00 BEDTIME Medical Branch LISINOPRIL Yes [id number] TAKE ONE Univers 20 mg 4-13 TABLET BY ity of tablet 00:00: MOUTH ONCE [place] 00 DAILY Medical Branch LISINOPRIL Yes [id number] TAKE ONE Univers 20 mg 4-13 TABLET BY ity of tablet 00:00: MOUTH ONCE [place] 00 DAILY Medical Branch citalopram 2016-08 Yes [id number] 10mg Take 1 U nivers 10 mg 2-22 tablet by ity of tablet 00:00: mouth [place] 00 daily. Medical Branch citalopram 2016-08 Yes [id number] 10mg Take 1 U nivers 10 mg 2-22 tablet by ity of tablet 00:00: mouth [place] 00 daily. Medical Branch Immunizations Ordered Immunization Filled Immunization Date Status Commen ts Source Name Name Influenza (IM) 2019-09-19 Completed [facility] Preservative Free 00:00:00 Hospita l FLUZONE QUAD PF 2019-05-25 Completed [facility] 00:00:00 [facility] FLUZONE QUAD PF 2018-10-18 Completed [facility] 00:00:00 [facility] FLUZONE QUAD 2017-08-20 Completed [facility] 00:[facility]:00 [facility] Influenza Virus 2017-08-20 Completed Universit y of Vaccine Quad IM 3+ 00:00:00 [facility] Influenza Virus 2017-08-20 Completed Universit y of Vaccine Quad IM 3+ 00:00:00 [facility] Pneumococcal 2013-03-12 Completed [facility] Polysaccharide 00:00:00 [facility] Pneumococcal 2013-03-12 Completed University o f Polysaccharide, 00:00:00 [facility] ical PPSV23 (PNEUMOVAX) Branch Pneumococcal 2013-03-12 Completed University o f Polysaccharide, 00:00:00 [place] Med ical PPSV23 (PNEUMOVAX) Branch Vital Signs Vital Name Observation Time Observation Value Comments Source Systolic blood 2020-10-07 14:13:00 134 mm[Hg] Method ist Hospital pressure Diastolic blood 2020-10-07 14:13:00 84 mm[Hg] [facility] pressure Heart rate 2020-10-07 14:13:00 77 /min [facility] Body height 2020-10-07 14:13:00 160 cm [facility] Body weight 2020-10-07 14:13:00 126.1 kg [facility] BMI 2020-10-07 14:13:00 49.25 kg/m2 [facility] Procedures Procedure Date / Time Performing Clinician Source Performed ASSIGNMENT OF BENEFITS 2021-04-17 23:30:56 Doctor Unassigned, No [facility] Medical Branch URINALYSIS, AUTOMATED 2020-10-07 17:34:00 Alyssa Singleton [facility] WITH MICROSCOPY MICROSCOPIC EXAMINATION 2020-10-07 17:34:00 Alyssa Singleton [facility] MICROALBUMIN / 2020-10-07 17:34:00 Alyssa Singleton [facility] CREATININE URINE RATIO CBC WITH PLATELET AND 2020-10-07 17:34:00 [facility] DIFFERENTIAL COMPREHENSIVE METABOLIC 2020-10-07 17:34:00 [facility] PANEL HEMOGLOBIN A1C 2020-10-07 17:34:00 [facility] LIPID PANEL 2020-10-07 17:34:00 [facility] Plan of Care Planned Activity Planned Date Details Comments Source Future Scheduled Test COVID-19 VACCINE (1) [facility] [code = COVID-19 VACCINE (1)] Future Scheduled Test Hepatitis C screening [facility] (procedure) [code = 117214610] Future Scheduled Test COLONOSCOPY SCREENING [facility] [code = COLONOSCOPY SCREENING] Future Scheduled Test DIABETIC FOOT EXAM [facility] [code = DIABETIC FOOT EXAM] Future Scheduled Test DIABETES: RETINAL EYE [facility] EXAM [code = DIABETES: RETINAL EYE EXAM] Future Scheduled Test INFLUENZA VACCINE [code [facility] = INFLUENZA VACCINE] Future Scheduled Test SHINGLES VACCINES (#1) [facility] [code = SHINGLES VACCINES (#1)] Future Scheduled Test URINE MICROALBUMIN [facility] [code = URINE MICROALBUMIN] Future Scheduled Test BREAST CANCER SCREENING [facility] [code = BREAST CANCER SCREENING] Encounters Start End Encounter Admission Attending Care Care Encounter Source Date/Time Date/Time Type Type Clinicians Facility Department ID 2021-08-31 2021-08-31 Outpatient R [facility] [id number] Univers 11:15:00 11:15:00 [id number] ity [facility] 2021-05-13 2021-05-13 [facility] [id number] [place] 00:00:00 00:00:[address] 2021-04-22 2021-04-22 Travel 1.2.840.1 1.2.112.284 [id number] Methodi 00:00:00 00:00:[address] 3.430.2.7 0.2.7.3.698 Ho spita .3.190608 084.8 l .8 2021-04-19 2021-04-19 Telephone DONALD Goins 1.2.511.337 [id number] Univers 00:00:00 00:00:00 Ly P CORIE 350.1.13.10 ity of [facility] 4.2.7.2.686 Pastor as [id number] [facility] [address] [place] 2021-04-17 2021-04-17 Outpatient R [facility] [id number] Univers 18:30:00 18:30:00 [id number] ity [facility] 2021-04-17 2021-04-17 Outpatient R [facility] [id number] Univers 18:30:00 18:30:00 ity [facility] 2021-04-17 2021-04-17 Orders Doctor DONALD 1.2.840.114 [id number] Univers 00:00:00 00:00:00 Only Unassigned, CORIE 350.1.13.10 ity of [facility] 4.2.7.2.686 Pastor as [id number] [facility] [address] [place] 2021-04-08 2021-04-08 Travel 1.2.840.1 1.2.094.106 [id number] Methodi 00:00:00 00:00:[address] 3.430.2.7 0.2.7.3.698 Ho spita .3.741848 084.8 l .8 2021-03-29 2021-03-29 Refill Kassandra, 1.2.840.1 [id number] Methodi 00:00:00 00:00:00 Alyss[address] Jha [address] 3.430.2.7 Hospit a .3.459332 l .8 2020-10-07 2020-10-07 Office Kassandra, 1.2.840.1 [id number] Methodi 08:09:17 09:08:06 Visit Alyssa Jha 61429.1.[address] 3.430.2.7 Hospit a .3.816343 l .8 2020-10-07 2020-10-07 Travel 1.2.840.1 1.2.299.042 [id number] Methodi 00:00:00 00:00:[address] 3.430.2.7 0.2.7.3.698 Ho spita .3.148331 084.8 l .8 2020-09-17 2020-09-17 Travel 1.2.840.1 1.2.679.032 [id number] Methodi 00:00:00 00:00:[address] 3.430.2.7 0.2.7.3.698 Ho spita .3.325925 084.8 l .8 2020-05-01 2020-05-01 Office WhitmanMartinez, 1.2.840.1 [id number] Methodi 13:57:41 15:01:17 Visit Alyssa Jha 27607.1.[address] 3.430.2.7 Hospit a .3.940478 l .8 2020-05-01 2020-05-01 Travel 1.2.840.1 1.2.527.528 [id number] Methodi 00:00:00 00:00:[address] 3.430.2.7 0.2.7.3.698 Ho spita .3.942358 084.8 l .8 Results Test Description Test Time Test Comments Results Result Comments Source Microalbumin / creatinine urine ratio 2020-10-09 00:08:00 Test Item Value Reference Range Interpretation Comme nts Creatinine, urine, random 198.1 mg/dL Not Estab. (test code = 2161-8) Albumin, urine (test code = 7.7 ug/mL Not Estab. 89894-2) Microalbumin/creatinine ratio See_Comment [Automated message] The (test code = 9318-7) system which generated this result transmit leroy reference range: 0 - 29 m g/g creat. The reference range was not used to interpret th is result as normal/abnormal . CRISTINA (test code = CRISTINA) [facility] [id number] 23:08:00 Test Item Value Reference Range Interpretation Comments Hemoglobin A1C (test code = 4548-4) 5.6 % 4.8-5.6 CRISTINA (test code = CRISTINA) [facility], automated with [id number] 20:10:00 Test Item Value Reference Range Interpretation Comments Specific gravity, urine (test code 1.005-1.030 = 2965-2) pH, urine (test code = 5803-2) 5.0-7.5 Color, UA (test code = 5778-6) Yellow Yellow Appearance (test code = 5767-9) Clear Clear WBC esterase, urine (test code = Negative Negative 5799-2) Protein, UA (test code = 48152-3) Negative Negative/Trace Glucose, urine (test code = Negative Negative 2349-9) Ketones, UA (test code = 2514-8) Negative Negative Occult blood, urine (test code = Negative Negative 5794-3) Bilirubin, UA (test code = 5770-3) Negative Negative Urobilinogen, UA (test code = 0.2 mg/dL 0.2-1.0 79862-1) Nitrite, UA (test code = 5802-4) Negative Negative Microscopic examination (test code See below: = 41136-3) CRISTINA (test code = CRISTINA) [facility] [id number] 20:10:00 Test Item Value Reference Range Interpretation Comments WBC, UA (test code = 0-5 See_Comment [Autom ated message] 5821-4) The system [employer] generated this result transmitted ref erence range: 0 - 5 /h pf. The reference range was not used to interpr et this result as normal/abnormal . RBC, UA (test code = 0-2 See_Comment [Autom ated message] 19551-4) The system [employer] generated this result transmitted ref erence range: [...] = 5769-5) CRISTINA (test code = CRISTINA) [facility] [id number] 07:06:00 Test Item Value Reference Range Interpretation Comments Glucose (test code = 103 mg/dL 65-99 H 2345-7) BUN (test code = 13 mg/dL 6-24 3094-0) Creatinine (test code 0.78 mg/dL 0.57-1.00 = 2160-0) EGFR Non-Afr. 88 mL/min/1.73 >59 Grenadian (test code = 2775) EGFR 102 mL/min/1.73 >59 (test code = 2774) BUN/creatinine ratio 9-23 (test code = 3097-3) Sodium (test code = 141 mmol/L 602-223 3847-2) Potassium (test code 4.5 mmol/L 3.5-5.2 = 2823-3) Chloride (test code = 104 mmol/L 96-106 2075-0) CO2 (test code = 26 mmol/L 20-29 8-9) Calcium (test code = 9.4 mg/dL 8.7-10.2 44332-1) Protein (test code = 6.8 g/dL 6.0-8.5 2885-2) Albumin, S (test code 4.0 g/dL 3.8-4.9 = 1751-7) Globulin, total (test 2.8 g/dL 1.5-4.5 code = 76306-8) Albumin/globulin 1.2-2.2 ratio (test code = 1759-0) [...] . ALT (test code = See_Comment [Automated 1742-6) message] The system which generated this result transmit leroy reference range : 0 - 32 IU/L. The reference range was not used to interpret this result as normal/abnormal . CRISTINA (test code = CRISTINA) Lab Interpretation Abnormal (test code = 62983-2) [facility] [id number] 07:06:00 Test Item Value Reference Range Interpretation Comments Cholesterol (test code = 2093-3) 121 mg/dL 100-199 Triglycerides (test code = 2571-8) 44 mg/dL 0-149 HDL cholesterol (test code = 44 mg/dL >39 2085-9) VLDL cholesterol kiana (test code = 11 mg/dL 5-40 71728-8) LDL Chol Calc (NIH) (test code = 66 mg/dL 0-99 66686-0) Non-HDL cholesterol (test code = 77 mg/dL 0-129 49810-5) CRISTINA (test code = CRISTINA) [facility] with platelet and [id number] 06:06:00 Test Item Value Reference Range Interpretation Comments WBC (test code = 6690-2) See_Comment [A utomated message] The system [employer] generated this result transmit leroy reference range : 3.4 - 10.8 x10E3/uL . The reference range was not used to interpret this result as normal/abnormal . RBC (test code = 789-8) See_Comment [Au tomated message] The system [employer] generated this result transmit leroy reference range [...] ated message] code = 777-3) The system [facility] generated this result transmit leroy reference range [...] as normal/abnormal . Monocytes, absolute See_Comment [Automa leroy message] (test code = 742-7) The syst [...] 0 % Not Estab. (test code = 03052-8) Immature grans (abs) See_Comment [Autom ated message] (test code = 75175-7) The sy stem which generated this result transmit leroy reference range : 0.0 - 0.1 x10E3/uL. The reference range was not used to interpret this result as normal/abnormal . CRISTINA (test code = CRISTINA) Lab Interpretation (test Abnormal code = 34652-7) [facility]
[2021-08-29 00:43] LABS: SARS-COV-2 RT PCR POSITIVE (NEGATIVE)
--- NOTE | 2021-08-29 02:48 | ER ---
Nurse's Notes [facility] Name: Iliana Redding Age: 51 yrs Sex: Female : 1970 Arrival Date: 08/28/2021 Time: 20:20 Bed DIS4 Private MD: Diagnosis: Coronavirus infection, unspecified Presentation: 08/28 23:39 Chief complaint: Patient states: she has flu-like symptoms since Wednesday with chills, bb congestion, headache. Coronavirus screen: chills, congestion, headache. Ebola Screen: No symptoms or risks identified at this time. Initial Sepsis Screen: Does the patient meet any 2 criteria? No. Patient's initial sepsis screen is negative. Does the patient have a suspected source of infection? No. Patient's initial sepsis screen is negative. Risk Assessment: Do you want to hurt yourself or someone else? Patient reports no desire to harm self or others. Onset of symptoms was August 26, 2021. 23:39 Method Of Arrival: Ambulatory bb 23:39 Acuity: OCHOA 3 bb Triage Assessment: 23:43 General: Appears in no apparent distress. Behavior is calm, cooperative. Pain: Denies bb pain. EENT: Reports congestion. Neuro: Level of Consciousness is awake, alert, obeys commands, Oriented to person, place, time, situation. Cardiovascular: Capillary refill < 3 seconds Patient's skin is warm and dry. Respiratory: Airway is patent Respiratory effort is even, unlabored. GI: No signs and/or symptoms were reported involving the gastrointestinal system. Derm: Skin is dry, Skin is normal, Skin temperature is warm. Musculoskeletal: Circulation, motion, and sensation intact. 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 - Social history:: Smoking status: Patient denies any tobacco usage or history of. Screenin/31 03:12 Abuse screen: Denies threats or abuse. Nutritional screening: No deficits noted. bb Tuberculosis screening: No symptoms or risk factors identified. Fall Risk None identified. Assessment: 03:12 Reassessment: Patient is alert, oriented x 3, equal unlabored respirations, skin bb warm/dry/pink. pt verbalized understanding of and agrees to plan of care discharge instructions given pt ambulated with steady gait to exit accompanied by family. Vital Signs: 08/28 23:39 BP 157 / 111; Pulse 71; Resp 16 S; Temp 98(O); Pulse Ox 100% on R/A; Weight 122.47 kg bb (R); Height 5 ft. 3 in. (160.02 cm) (R); 08/29 03:12 BP 137 / 86; Pulse 72; Resp 16 S; Temp 96.2(O); Pulse Ox 98% on R/A; bb 08/28 23:39 Body Mass Index 47.83 (122.47 kg, 160.02 cm) bb ED Course: 08/28 20:20 Patient arrived in ED. ja2 23:43 Triage completed. bb 23:43 Arm band placed on Patient placed in waiting room, Patient notified of wait time. EKG bb completed in triage. Results shown to MD. EKG completed in triage. Results shown to MD. covid, flu swab sent. 08/29 00:09 XRAY Chest (1 view) In Process Unspecified. EDMS 01:19 Yayo Archuleta MD is Attending Physician. Luciano 03:12 Patient has correct armband on for positive identification. bb 03:12 No provider procedures requiring assistance completed. Patient did not have IV access bb during this emergency room visit. Administered Medications: No medications were administered Outcome: 02:47 Discharge ordered by . george 03:15 Discharged to home ambulatory, with family. bb 03:15 Condition: stable 03:15 Discharge instructions given to patient, Instructed on discharge instructions, follow up and referral plans. medication usage, Demonstrated understanding of instructions, follow-up care, medications, Prescriptions given X 3. 03:15 Patient left the ED. bb Signatures: Dispatcher [employer] EDMS Irene Cowan, JESS RN Yayo Pelayo MD MD [facility] Shira Bacon
--- NOTE | 2021-08-29 02:48 | EDPHYS ---
Physician Documentation [facility] Name: Iliana Redding Age: 51 yrs Sex: Female : 1970 Arrival Date: 08/28/2021 Time: 20:20 Bed DIS4 Private MD: ED Physician Yayo Archuleta HPI: 08/29 01:53 This 51 yrs old Black Female presents to ER via Ambulatory with complaints of Sore mh7 Throat, BODY ACHES. 01:54 The patient or guardian reports flu symptoms, myalgias, Congestion, chills. The patient mh7 or guardian reports cough, that is intermittent, described as mild, with no sputum. Onset: The symptoms/episode began/occurred 3 day(s) ago. Severity of symptoms: At their worst the symptoms were mild, 2 day(s) ago, in the emergency department the symptoms have improved, moderately. Modifying factors: The symptoms are alleviated by OTC cold preparation, the symptoms are aggravated by nothing. Associated signs and symptoms: Pertinent positives: Nasal congestion, Pertinent negatives: chest pain, diarrhea, ear ache, fever, nausea, sore throat, vomiting. 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 - Social history:: Smoking status: Patient denies any tobacco usage or history of. ROS: 08/29 01:54 Constitutional: Negative for fever, chills, and weight loss, Eyes: Negative for injury, mh7 pain, redness, and discharge, ENT: Negative for injury, pain, and discharge, Neck: Negative for injury, pain, and swelling, Cardiovascular: Negative for chest pain, palpitations, and edema, Abdomen/GI: Negative for abdominal pain, nausea, vomiting, diarrhea, and constipation, Back: Negative for injury and pain, : Negative for injury, bleeding, discharge, and swelling, MS/Extremity: Negative for injury and deformity, Skin: Negative for injury, rash, and discoloration, Neuro: Negative for headache, weakness, numbness, tingling, and seizure, Psych: Negative for depression, anxiety, suicide ideation, homicidal ideation, and hallucinations, Allergy/Immunology: Negative for hives, rash, and allergies, Endocrine: Negative for neck swelling, polydipsia, polyuria, polyphagia, and marked weight changes, Hematologic/Lymphatic: Negative for swollen nodes, abnormal bleeding, and unusual bruising. Exam: 01:54 Constitutional: This is a well developed, well nourished patient who is awake, alert, mh7 and in no acute distress. Head/Face: Normocephalic, atraumatic. Eyes: Pupils equal round and reactive to light, extra-ocular motions intact. Lids and lashes normal. Conjunctiva and sclera are non-icteric and not injected. Cornea within normal limits. Periorbital areas with no swelling, redness, or edema. ENT: Nares patent. No nasal discharge, no septal abnormalities noted. Tympanic membranes are normal and external auditory canals are clear. Oropharynx with no redness, swelling, or masses, exudates, or evidence of obstruction, uvula midline. Mucous membranes moist. Neck: Trachea midline, no thyromegaly or masses palpated, and no cervical lymphadenopathy. Supple, full range of motion without nuchal rigidity, or vertebral point tenderness. No Meningismus. Chest/axilla: Normal chest wall appearance and motion. Nontender with no deformity. No lesions are appreciated. Cardiovascular: Regular rate and rhythm with a normal S1 and S2. No gallops, murmurs, or rubs. Normal PMI, no JVD. No pulse deficits. Respiratory: Lungs have equal breath sounds bilaterally, clear to auscultation and percussion. No rales, rhonchi or wheezes noted. No increased work of breathing, no retractions or nasal flaring. Abdomen/GI: Soft, non-tender, with normal bowel sounds. No distension or tympany. No guarding or rebound. No evidence of tenderness throughout. Back: No spinal tenderness. No costovertebral tenderness. Full range of motion. Skin: Warm, dry with normal turgor. Normal color with no rashes, no lesions, and no evidence of cellulitis. MS/ Extremity: Pulses equal, no cyanosis. Neurovascular intact. Full, normal range of motion. Neuro: Awake and alert, GCS 15, oriented to person, place, time, and situation. Cranial nerves II-XII grossly intact. Motor strength 5/5 in all extremities. Sensory grossly intact. Cerebellar exam normal. Normal gait. Psych: Awake, alert, with orientation to person, place and time. Behavior, mood, and affect are within normal limits. Vital Signs: 08/28 23:39 BP 157 / 111; Pulse 71; Resp 16 S; Temp 98(O); Pulse Ox 100% on R/A; Weight 122.47 kg bb (R); Height 5 ft. 3 in. (160.02 cm) (R); 08/29 03:12 BP 137 / 86; Pulse 72; Resp 16 S; Temp 96.2(O); Pulse Ox 98% on R/A; bb 08/28 23:39 Body Mass Index 47.83 (122.47 kg, 160.02 cm) bb MDM: 02:46 Differential Diagnosis: Bronchitis Influenza Upper Respiratory Infection Allergic mh7 Rhinitis Viral Syndrome Pneumonia. Data reviewed: vital signs, nurses notes, lab test result(s), Flu: negative Covid negative, radiologic studies, plain films. Data interpreted: Pulse oximetry: on room air is 100 %. Interpretation: normal. Counseling: I had a detailed discussion with the patient and/or guardian regarding: the historical points, exam findings, and any diagnostic results supporting the discharge/admit diagnosis, the presence of at least one elevated blood pressure reading (>120/80) during this emergency department visit, lab results, radiology results, the need for outpatient follow up, to return to the emergency department if symptoms worsen or persist or if there are any questions or concerns that arise at home. Response to treatment: the patient's symptoms have markedly improved after treatment, patient is well hydrated. 02:47 Patient medically screened. [facility] 08/28 23:46 Order name: COVID-19/FLU A+B (Document "Date of Onset" if Symptomatic); Complete Time: bb 01:19 08/28 23:46 Order name: XRAY Chest (1 view) bb Administered Medications: No medications were administered Disposition Summary: 08/29/21 02:47 Discharge Ordered Location: Home [facility] Problem: new [facility] Symptoms: have improved [facility] Condition: Stable [facility] Diagnosis - Coronavirus infection, unspecified 7 Followup: [facility] - With: Private Physician - When: 1 - 2 days - Reason: Worsening of condition, Recheck today's complaints, Continuance of care, Re-evaluation by your physician Discharge Instructions: - Discharge Summary Sheet [facility] - COVID-19 7 - COVID-19 Frequently Asked Questions [facility] - 10 Things You Can Do to Manage Your COVID-19 Symptoms at Home - [place] [id number] - COVID-19: Quarantine vs. Isolation - [place] [id number] Forms: - Medication Reconciliation Form [facility] - Thank You Letter [facility] - Antibiotic Education [facility] - Prescription Opioid Use [facility] Prescriptions: - albuterol sulfate 90 mcg/actuation Inhalation HFA aerosol inhaler - inhale 2 puff by INHALATION route every 6 hours As needed; 1 Inhaler; Refills: [facility] 0, Product Selection Permitted - Tessalon Perles 100 mg Oral Capsule - take 1 capsule by ORAL route every 8 hours As needed; 15 capsule; Refills: 0, [facility] Product Selection Permitted - Zithromax Z-Antwan 250 mg Oral Tablet - take 1 tablet by ORAL route as directed for 5 days Day 1 - take two (2) tablets [facility] one time. Day 2, 3, 4 , 5 take one (1) tablet once daily.; 6 tablet; Refills: 0, Product Selection Permitted Signatures: Dispatcher [employer] Irene Fink, JESS RN Yayo Pelayo MD MD [facility]
[2021-08-29 03:39] VITALS: BP 137/86; TEMP 96.2; O2SAT 98
--- NOTE | 2021-08-29 20:49 | RAD REPORT ---
EXAM DESCRIPTION: Prashant Single View08/29/2021 12:04 am CLINICAL HISTORY: The patient is 51 years old and is Female; CONGESTION TECHNIQUE: Single view of the chest. COMPARISON: No relevant prior studies available. FINDINGS: Lungs: No pulmonary vascular congestion or consolidation. Pleural space: Unremarkable. No pneumothorax. Heart: Unremarkable. No cardiomegaly. Mediastinum: Unremarkable. Bones/joints: No acute fracture visualized. Upper abdomen: No free air in the visualized upper abdomen. IMPRESSION: No acute findings in the chest. Electronically signed by: Roro Morrow MD 08/29/2021 4:29 AM BELT MEASURER Due to temporary technical issues with the PACS/Fluency reporting system, reports are being signed by the in house radiologists without review as a courtesy to insure prompt reporting. The interpreting radiologist is fully responsible for the content of the report.
== END 2021-08-29 03:15 | disposition home or self-care (01) ==
LOC: ER 18:52
DX: U07.1 COVID-19 (principal)
CPT/HCPCS: 0240U; 71045; 99283

== ENCOUNTER 2022-10-02 08:45 | Emergency (ER) | payer OTHER ==
--- OUTSIDE RECORDS SUMMARY | 2022-10-02 08:49 | XMS REPORT | Continuity of Care Document ---
:1970 Author Organization [facility] t Address [address] [place] [address] Dr. Don[address] [place] [address] Care Team Providers Name Role Phone Kassandra TAYLOR, Alyssa Jha Primary Care Physician [phone] Kassandra TAYLOR, Alyssa Jha Attending Clinician GC_[email or web address]_Black_D Attending Clinician Unavailable Aleshia Manriquez Attending Clinician [phone] Buster MERCADO, Ly Cristina Attending Clinician Unavailable Doctor Unassigned, [place] Attending Clinician Unavailable [email or web address]_Black_D Admitting Clinician Unavailable Payers Payer Name Policy Type Policy Number Effective Date Expiration Date S ource ALLIED BENEFIT [id number] 2014 SYSTEMS 00:00:00 MULTIPLAN GENERIC [id number] 2015 00:00:00 Problems Condition Condition Condition Status Onset Resolution [...] Prediabete Disease Active M ethodi s s 8 st 00:00: Hospita 00 l Essential Essential Disease Active Met hodi hypertensi hypertensi 11-18 st on on 00:00: Hospita 00 l Menopause Menopause Disease Active Met hodi 11-18 st 00:00: Hospita 00 l Sleep Sleep Disease Active [facility]i apnea apnea 11-18 00:00: Hospita 00 l Type 2 Type 2 Disease Active Methodi diabetes diabetes 11-18 mellitus mellitus 00:00: Hospit a with with 00 l complicati complicati on, on, without without long-term long-term current current use of use of insulin insulin Anemia Anemia Disease Active Univers 11-18 ity of 00:00: [place] 00 [facility] Allergies, Adverse Reactions, Alerts Allergy Allergy Status [...] Hospita reaction 00 l s to drug Aspirin Propensi Active Other - See Feels [...] ity of 00:00: [place] 00 [facility] Family History Family Member Diagnosis Comments Start Date Stop Date Source Natural daughter No Known Problems [facility] Natural daughter Pancreatitis Method [facility] Natural sister No Known Problems [facility] Natural son No Known Problems [facility] brother [facility] Natural father Hypertension [facility] Natural mother Arthritis [facility] mother Asthma [facility] mother Depression [facility] mother Diabetes [facility] mother Heart disease [facility] Natural mother Hy[facility]ension [facility] Social History Social Habit Start Date Stop Date Quantity Comments Source Exposure to Not sure [facility] SARS-CoV-2 (event) Alcohol intake 2022-06-12 2022-06-12 [facility] 00:[facility]:00 00:00:00 non-drinker of alcohol (finding) Tobacco use and 2021-10-17 2021-10-17 Smokeless tobacco [facility] exposure 00:00:00 00:00:00 non-user Sex Assigned At [address] [facility] y of 00:00:00 00:00:00 [facility] Smoking Status Start Date Stop Date Source Never smoked tobacco [facility] Medications Ordered Filled Start Stop Current Ordering Indication Dosage Frequency Signature Comments Components Source Medication Medication Date Date Medication? Clinician (SIG) Name Name atorvastati Yes [id number] 20mg QD Take 1 [facility] n (LIPITOR) 05-28 tablet (20 st 20 mg 00:00: mg total) Hospita tablet 00 by mouth l nightly. citalopram Yes [id number] TAKE 1 & Methodi (CeleXA) 20 05-28 1/2 (ONE & st MG tablet 00:00: ONE-HALF) Hos ban 00 TABLETS BY l MOUTH ONCE DAILY lisinopriL Yes [id number] 20mg Q.5D Take 1 M ethodi (PRINIVIL) 05-28 tablet (20 st 20 mg 00:00: mg total) Hospita tablet 00 by mouth 2 l (two) times a day. pantoprazol Yes [id number] 40mg Q24H Take 1 Methodi e - tablet (40 st (PROTONIX) 00:00: mg total) Ho spita 40 MG EC 00 by mouth l tablet daily as needed (GERD). lisinopriL 2021- No [id number] TAKE 1 Methodi (PRINIVIL) 05-[address] 20 mg 00:00: 00:00 MOUTH Hospita tablet 00 :00 TWICE l DAILY (INCREASED DOSE) pantoprazol 2021- No [id number] TAKE 1 Methodi e -05-[address] (PROTONIX) 00:00: 00:00 MOUTH ONCE Hospita 40 MG EC 00 :00 DAILY l tablet NEEDED ( REFLUX ) STOP RANITIDINE cyclobenzap Yes [id number] 10mg QD Take 1 Methodi rine 3-12 tablet (10 st (FLEXERIL) 00:00: mg total) Ho spita 10 mg 00 by mouth l tablet nightly as needed for muscle spasms. rx with refills will last 1 year lisinopriL 2021- No [id number] 20mg Q.5D Take 1 Methodi (PRINIVIL) 11-08 tablet (20 st 20 mg 00:00: 00:00 mg total) Hospit a tablet 00 :00 by mouth 2 l (two) times a day. Increase dose cetirizine Yes [id number] 10mg QD Take 1 M ethodi (ZyrTEC) 10 05-13 tablet (10 st MG tablet 00:00: mg total) Hos ban 00 by mouth l daily. citalopram 2021- No [id number] TAKE 1 & Methodi (CeleXA) 20 05-13 1/2 (ONE & s t MG tablet 00:00: 00:00 ONE-HALF) Ho spita 00 :00 TABLETS BY l MOUTH ONCE DAILY atorvastati 2021- No [id number] 20mg QD Take 1 Methodi n (LIPITOR) 05-13 tablet (20 s t 20 mg 00:00: 00:00 mg total) Hospit a tablet 00 :00 by mouth l nightly. pantoprazol 2021- No [id number] 40mg Q24H Take 1 Methodi e 05-13 tablet (40 st (Protonix) 00:00: 00:00 mg total) H ospita 40 MG EC 00 :00 by mouth l tablet daily as needed (reflux). Dc ranitidine lisinopriL 2021- No [id number] 20mg QD Take 1 Methodi (PRINIVIL) 05-1312 tablet (20 st 20 mg 00:00: 00:00 mg total) Hospit a tablet 00 :00 by mouth l daily. lisinopriL Yes [id number] Take 1 M ethodi (PRINIVIL) 03-[address] 20 mg 00:00: mouth once Hospit a tablet 00 daily l pantoprazol Yes [id number] 40mg Q24H Take 1 Methodi e 2-08 tablet (40 st (Protonix) 00:00: mg total) Ho spita 40 MG EC 00 by mouth l tablet daily as needed (reflux). Dc ranitidine citalopram 2019-0 Yes [id number] 30mg QD Take 1.5 [facility] (CeleXA) 20 - tablets st MG tablet 00:00: (30 mg Hospit a 00 total) by l mouth daily. Increase dose atorvastati 2019- Yes [id number] 20mg QD Take 1 Methodi n (LIPITOR) 05-01 tablet (20 st 20 mg 00:00: mg total) Hospita tablet 00 by mouth l nightly. lisinopriL 2020- No [id number] 20mg QD Take 1 Methodi (PRINIVIL) 05-01-02 tablet (20 st 20 mg 00:00: 00:00 mg total) Hospit a tablet 00 :00 by mouth l daily. estradioL 2020-0 Yes .5mg QD Take 0.5 Meth [facility] (ESTRACE) 8-[address] 0.5 MG 00:00: mouth Hospita tablet 00 daily. l estradioL 2020-0 Yes .5mg QD Take 0.5 Meth heavenly (ESTRACE) 8-[address] 0.5 MG 00:00: mouth Hospita tablet 00 daily. l lisinopriL 2019- No [id number] Take 1 Methodi (PRINIVIL) 6-30 - tablet by st 20 mg 00:00: 00:00 mouth once Hospi ta tablet 00 :00 daily l cyclobenzap 2019- Yes [id number] 10mg QD Take 1 Methodi rine 3-30 tablet (10 st (FLEXERIL) 00:00: mg total) Ho spita 10 mg 00 by mouth l tablet nightly as needed for muscle spasms. cyclobenzap 2021- No [id number] 10mg QD Take 1 Methodi rine 3-30 03-12 tablet (10 st (FLEXERIL) 00:00: 00:00 mg total) H ospita 10 mg 00 :00 by mouth l tablet nightly as needed for muscle spasms. pantoprazol 2020- No [id number] 40mg QD Take 1 Methodi e 3-30 02-08 tablet (40 st (Protonix) 00:00: 00:00 mg total) H ospita 40 MG EC 00 :00 by mouth l tablet daily. Dc ranitidine citalopram 2019- No [id number] 30mg QD Take 1.5 Methodi (CeleXA) 20 3-30 - tablets st MG tablet 00:00: 00:00 (30 mg Hospi ta 00 :00 total) by l mouth daily. Increase dose atorvastati 2018-08- No [id number] TAKE 1 Methodi n (LIPITOR) 0-30 - TABLET BY st 20 MG 00:00: 00:00 MOUTH Hospita tablet 00 :00 NIGHTLY l flash 2019- No [id number] 1{each} QD 1 each Me thodi glucose -18 05- daily. st scanning 00:00: 00:00 Hospita reader 00 :00 l (FREESTYLE DIXON 14 DAY READER) misc flash 2019- No [id number] 1{each} QD 1 each Me thodi glucose -18 05- daily. st sensor 00:00: 00:00 Hospita (FREESTYLE 00 :00 l DIXON 14 DAY SENSOR) kit ATORVASTATI Yes [id number] TAKE ONE Univers N 20 mg 5-23 TABLET BY ity of tablet 00:00: MOUTH AT [place] 00 BEDTIME Medical Branch ATORVASTATI Yes [id number] TAKE ONE Univers N 20 mg 5-23 TABLET BY ity of tablet 00:00: MOUTH AT [place] 00 BEDTIME Medical Branch LISINOPRIL Yes [id number] TAKE ONE Univers 20 mg 4-13 TABLET BY ity of tablet 00:00: MOUTH ONCE [place] 00 DAILY Medical Branch LISINOPRIL Yes [id number] TAKE ONE Univers 20 mg 4-13 TABLET BY ity of tablet 00:00: MOUTH ONCE [place] 00 DAILY Medical Branch citalopram 2016-08 Yes [id number] 10mg Take 1 U nivers 10 mg 2-22 tablet by ity of tablet 00:00: mouth [place] 00 daily. Medical Branch citalopram 2016-08 Yes [id number] 10mg Take 1 U nivers 10 mg 2-22 tablet by ity of tablet 00:00: mouth [place] 00 daily. Medical Branch atorvastati atorvastati No atorvastat [facility] 20 mg n 20 mg in 20 mg Medic al tablet TAKE tablet TAKE tablet 1 TABLET BY 1 TABLET BY TAKE 1 MOUTH ONCE MOUTH ONCE TABLET BY DAILY DAILY MOUTH ONCE NIGHTLY NIGHTLY DAILY NIGHTLY Brisdelle Brisdelle No 1capsul Q1D Brisdelle [facility] 7.5 mg 7.5 mg e(s) 7.5 mg Medical capsule capsule capsule Take 1 Take 1 Take 1 capsule capsule capsule every day every day every day by oral by oral by oral route for route for route for 90 days. 90 days. 90 days. cetirizine cetirizine No cetirizine [facility] 10 mg 10 mg 10 mg Medical tablet TAKE tablet TAKE tablet 1 TABLET BY 1 TABLET BY TAKE 1 MOUTH ONCE MOUTH ONCE TABLET BY DAILY DAILY MOUTH ONCE DAILY citalopram citalopram No citalopram [facility] 20 mg 20 mg 20 mg Medical tablet TAKE tablet TAKE tablet 1 & 1/2 1 & 1/2 TAKE 1 & (ONE & (ONE & 1/2 (ONE & ONE-HALF) ONE-HALF) ONE-HALF) TABLETS BY TABLETS BY TABLETS BY MOUTH ONCE MOUTH ONCE MOUTH ONCE DAILY DAILY DAILY cyclobenzap cyclobenzap No cyclobenza [facility] rine 10 mg rine 10 mg evelyn 10 Medical tablet TAKE tablet TAKE mg tablet 1 TABLET BY 1 TABLET BY TAKE 1 MOUTH AT MOUTH AT TABLET BY BEDTIME BEDTIME MOUTH AT NEEDED FOR NEEDED FOR BEDTIME MUSCLE MUSCLE NEEDED FOR SPASM SPASM MUSCLE SPASM estradiol estradiol No estradiol [facility] 0.5 mg 0.5 mg 0.5 mg Medical tablet TAKE tablet TAKE tablet 1 TABLET BY 1 TABLET BY TAKE 1 MOUTH ONCE MOUTH ONCE TABLET BY DAILY FOR DAILY FOR MOUTH ONCE 90 DAYS 90 DAYS DAILY FOR 90 DAYS lisinopril lisinopril No lisinopril [facility] 20 mg 20 mg 20 mg Medical tablet TAKE tablet TAKE tablet 1 TABLET BY 1 TABLET BY TAKE 1 MOUTH ONCE MOUTH ONCE TABLET BY DAILY DAILY MOUTH ONCE DAILY pantoprazol pantoprazol No pantoprazo [facility] e 40 mg e 40 mg le 40 mg Medic al tablet,pio tablet,pio tablet,del yed release yed release ayed TAKE 1 TAKE 1 release TABLET BY TABLET BY TAKE 1 MOUTH ONCE MOUTH ONCE TABLET BY DAILY DAILY MOUTH ONCE NEEDED ( NEEDED ( DAILY REFLUX ) REFLUX ) NEEDED ( STOP STOP REFLUX ) RANITIDINE RANITIDINE STOP RANITIDINE prednisone prednisone No prednisone [facility] 20 mg 20 mg 20 mg Medical tablet tablet tablet Ventolin Ventolin No Ventolin [facility] via HFA 90 HFA 90 HFA 90 Medical mcg/actuati mcg/actuati mcg/actuat on aerosol on aerosol ion inhaler inhaler aerosol INHALE 2 INHALE 2 inhaler PUFFS BY PUFFS BY INHALE 2 MOUTH EVERY MOUTH EVERY PUFFS BY 6 HOURS 6 HOURS MOUTH NEEDED NEEDED EVERY 6 HOURS NEEDED Immunizations Ordered Immunization Filled Immunization Date Status Commen ts Source Name Name FLUCELVAX QUAD PF 2022-05-[address] 00:00:00 [facility] Tdap 2022-04-20 Completed [facility] 00:00:00 [facility] Zoster Vaccine 2022-04-20 Completed [facility] Recombinant 00:00:00 [facility] MODERNA COVID-19 MRNA 2022-01-16 Completed Met hodist VACCINATION 00:00:00 [facility] Zoster Vaccine 2022-01-16 Completed [facility] Recombinant 00:00:00 [facility] FLUCELVAX QUAD PF 2021-10-[address] 00:00:00 [facility] influenza, influenza, 2021-10-17 Completed [facility] unspecified unspecified 00:00:00 formulation formulation MODERNA COVID-19 MRNA 2021-02-08 Completed Met hodist VACCINATION 00:00:00 [facility] COVID-19 (SARS-COV-2) COVID-19 2021-02-08 Completed [facility] vaccine, unspecified (SARS-COV-2) 00:00:00 vaccine, unspecified MODERNA COVID-19 MRNA 2021-01-11 Completed Met hodist VACCINATION 00:00:00 [facility] COVID-19 (SARS-COV-2) COVID-19 2021-01-11 Completed [facility] vaccine, unspecified (SARS-COV-2) 00:00:00 vaccine, unspecified Influenza (IM) 2019-09-19 Completed [facility] Preservative Free 00:00:00 Hospita l Influenza (IM) 2019-09-19 Completed [facility] Preservative Free 00:00:00 [facility] FLUZONE QUAD PF 2019-05-25 Completed [facility] 00:00:00 Hospital FLUZONE QUAD PF 2019-05-25 Completed [facility] 00:00:00 [facility] FLUZONE QUAD PF 2018-10-18 Completed [facility] 00:00:00 Hospital FLUZONE QUAD PF 2018-10-18 Completed [facility] 00:00:00 Hospital FLUZONE QUAD 2017-08-20 Completed [facility] 00:00:00 Hospital FLUZONE QUAD 2017-08-20 Completed [facility] 00:00:00 [facility] Influenza Virus 2017-08-20 Completed Universit y of Vaccine Quad IM 3+ 00:00:00 [facility] Influenza Virus 2017-08-20 Completed Universit y of Vaccine Quad IM 3+ 00:00:00 [facility] Pneumococcal 2013-03-12 Completed [facility] Polysaccharide 00:00:00 [facility] Pneumococcal 2013-03-12 Completed [facility] Polysaccharide 00:00:00 [facility] Pneumococcal 2013-03-12 Completed University o f Polysaccharide, 00:00:00 [place] [facility] ical PPSV23 (PNEUMOVAX) Branch Pneumococcal 2013-03-12 Completed University o f Polysaccharide, 00:00:00 [place] Med ical PPSV23 (PNEUMOVAX) Branch Vital Signs Vital Name Observation Time Observation Value Comments Source BP Diastolic 2021-10-23 00:00:00 82 mm[Hg] [facility] Height 2021-10-23 00:00:00 63 [in_i] [facility] BMI (Body Mass 2021-10-23 00:00:00 51.3 kg/m2 [facility] Medical Index) BP Systolic 2021-10-23 00:00:00 124 mm[Hg] [facility] Body Weight 2021-10-23 00:00:00 289.6 [lb_av] [facility] Heart rate 2022-05-28 14:02:00 87 /min [facility] Body height 2022-05-28 14:02:00 160 cm [facility] Body weight 2022-05-28 14:02:00 130.636 kg [facility] BMI 2022-05-28 14:02:00 51.02 kg/m2 [facility] Systolic blood 2022-05-28 14:02:00 126 mm[Hg] [facility] Di[facility] blood 2022-05-28 14:02:00 92 mm[Hg] [facility] pressure Oxygen saturation in 2021-10-17 17:17:00 100 /min [facility] Arterial blood by Pulse oximetry Systolic blood 2020-10-07 14:13:00 134 mm[Hg] [facility] [place] [facility] pressure Diastolic blood 2020-10-07 14:13:00 84 mm[Hg] [facility] pressure Heart rate 2020-10-07 14:13:00 77 /min [facility] Body height 2020-10-07 14:13:00 160 cm [facility] Body weight 2020-10-07 14:13:00 126.1 kg [facility] BMI 2020-10-07 14:13:00 49.25 kg/m2 [facility] Procedures Procedure Date / Time Performing Clinician Source Performed HEMOGLOBIN A1C 2022-05-28 15:16:00 [facility], [facility] MAMMO, screening, digital, 2021-10-23 00:00:00 [facility] bilateral URINALYSIS, AUTOMATED WITH 2021-10-17 22:46:00 [facility], [facility] MICROSCOPY MICROSCOPIC EXAMINATION 2021-10-17 22:46:00 [facility], [facility] HEPATITIS C ANTIBODY 2021-10-17 18:21:00 [facility], [facility] MICROALBUMIN / CREATININE 2021-10-17 18:21:00 [facility], [facility] URINE RATIO CBC WITH PLATELET AND 2021-10-17 18:21:00 [facility], [facility] DIFFERENTIAL COMPREHENSIVE METABOLIC 2021-10-17 18:21:00 [facility] PANEL LIPID PANEL 2021-10-17 18:21:00 [facility], [facility] THYROID CASCADE 2021-10-17 18:21:00 [facility], [facility] PANEL/REFLEX HEMOGLOBIN A1C 2021-10-17 18:21:00 [facility], [facility] FERRITIN LEVEL 2021-10-17 18:21:00 [facility], [facility] IRON LEVEL 2021-10-17 18:21:00 [facility], [facility] VITAMIN B12 LEVEL 2021-10-17 18:21:00 [facility] ASSIGN[facility] OF BENEFITS 2021-04-17 23:30:56 [facility] [place] [facility] URINALYSIS, AUTOMATED WITH 2020-10-07 17:34:00 [facility] MICROSCOPY MICROSCOPIC EXAMINATION 2020-10-07 17:34:00 [facility] MICROALBUMIN / CREATININE 2020-10-07 17:34:00 [facility] URINE RATIO CBC WITH PLATELET AND 2020-10-07 17:34:00 [facility] DIFFERENTIAL COMPREHENSIVE METABOLIC 2020-10-07 17:34:00 [facility] PANEL HEMOGLOBIN A1C 2020-10-07 17:34:00 [facility] LIPID PANEL 2020-10-07 17:34:00 [facility] Cholecystectomy 2014-05-30 00:00:00 [facility] (Gallbladder) Hysterectomy with 2012-08-30 00:00:00 [facility] Oopherectomy (Ovaries Removed) Plan of Care Planned Activity Planned Date Details Comments Source Future Scheduled 2022-09-20 Pneumococcal Vaccine: Me [facility]ist Test 00:58:01 Pediatrics (0 to 5 Hospital Years) and At-Risk Patients (6 to 64 Years) (2 - PCV) [code = Pneumococcal Vaccine: Pediatrics (0 to 5 Years) and At-Risk Patients (6 to 64 Years) (2 - PCV)] Future Scheduled 2022-09-20 COLONOSCOPY SCREENING [facility] Test 00:58:01 [code = COLONOSCOPY Hospital SCREENING] Future Scheduled 2022-09-20 DIABETES: RETINAL EYE [facility] Test 00:58:01 EXAM [code = DIABETES: Hospi lyly RETINAL EYE EXAM] Future Scheduled 2022-09-20 COVID-19 VACCINE (4 - [facility] Test 00:58:01 Booster for Moderna Hospital series) [code = COVID-19 VACCINE (4 - Booster for Moderna series)] Future Scheduled 2022-09-20 DIABETIC FOOT EXAM [facility] Test 00:58:01 [code = DIABETIC FOOT Hospit al EXAM] Future Scheduled 2022-09-20 URINE MICROALBUMIN [facility] Test 00:58:01 [code = URINE Hospital MICROALBUMIN] Future Scheduled 2022-09-20 BREAST CANCER SCREENING [facility] 00:58:01 [code = BREAST CANCER Hospit al SCREENING] Diagnostic Test 2021-10-23 Cytomegalovirus Ab [facility] Pending 00:00:00 [Titer] in Serum or Plasma by Latex agglutination [code = 5121-9] Diagnostic Test 2021-10-23 Weight of 24 hour [facility] Pending 00:00:00 Specimen [code = 3153-4] Diagnostic Test 2021-10-23 Indirect antiglobulin [facility] Pending 00:00:00 test.IgG specific reagent [Presence] in Serum or Plasma [code = 1005-8] Diagnostic Test 2021-10-23 RPR (rapid plasma [facility] Pending 00:00:00 reagin), serum [code = RPR (rapid plasma reagin), serum] Diagnostic Test 2021-10-23 HIV 1+2 AB + HIV 1 p24 [facility] Pending 00:00:00 Ag, qualitative immunoassay, serum [code = HIV 1+2 AB + HIV 1 p24 Ag, qualitative immunoassay, serum] Future Scheduled COVID-19 VACCINE (1) Met [facility]ist Test [code = COVID-19 Hospital VACCINE (1)] Future Scheduled Hepatitis C screening [facility] Test (procedure) [code = Hospital [id number]] Future Scheduled COLONOSCOPY SCREENING [facility] Test [code = COLONOSCOPY Hospital SCREENING] Future Scheduled DIABETIC FOOT EXAM [facility] Test [code = DIABETIC FOOT Hospit al EXAM] Future Scheduled DIABETES: RETINAL EYE [facility] Test EXAM [code = DIABETES: Hospi lyly RETINAL EYE EXAM] Future Scheduled INFLUENZA VACCINE [code [facility] Test = INFLUENZA VACCINE] Hospita l Future Scheduled SHINGLES VACCINES (#1) M ethodist Test [code = SHINGLES Hospital VACCINES (#1)] Future Scheduled URINE MICROALBUMIN [facility] Test [code = URINE Hospital MICROALBUMIN] Future Scheduled BREAST CANCER SCREENING [facility] Test [code = BREAST CANCER Hospit al SCREENING] Future Appointment 2022-10-23 Aleshia Manriquez [address] One[address] [facility] 00:00:00 [place] [address] Encounters Start End Encounter Admission Attending Care Care Encounter Source Date/Time Date/Time Type Type Clinicians Facility Department ID 2022-05-28 2022-05-28 Office Kassandra, 1.2.840.1 [id number] Methodi 09:00:00 10:12:24 Visit Alyssa Mcbride50.1.[address] 3.430.2.7 Hospit a .3.813193 l .8 2022-05-28 2022-05-28 Travel 1.2.840.1 1.2.972.102 [id number] [facility]i 00:00:00 00:00:[address] 3.430.2.7 0.2.7.3.698 Ho spita .3.803803 084.8 l .8 2022-05-28 2022-05-28 [facility] [id number] [place] 00:00:00 00:00:[address] ALYSSA [address] 2022-05-01 2022-05-01 Refill ZenaidaJuan, 1.2.840.1 [id number] Methodi 00:00:00 00:00:00 Alyssa Jha [address] 3.430.2.7 Hospit a .3.289963 l .8 2022-03-30 2022-03-30 Travel 1.2.840.1 1.2.583.586 [id number] [facility] 00:00:00 00:00:[address] 3.430.2.7 0.2.7.3.698 Ho spita .3.353408 084.8 l .8 2022-02-21 2022-02-21 Refill Kassandra, 1.2.840.1 [id number] [facility]i 00:00:00 00:00:00 Alyssa Jha [address] 3.430.2.7 Hospit a .3.799185 l .8 2021-12-17 2021-12-17 Travel 1.2.840.1 1.2.514.581 [id number] [facility] 00:00:00 00:00:[address] 3.430.2.7 0.2.7.3.698 Ho spita .3.807584 084.8 l .8 2021-10-23 2021-10-23 Outpatient [facility] PRIV PRIV [id number] [facility] 04:47:00 04:47:00 Black_D [id number] Medica l 2021-10-23 2021-10-23 Aleshia [facility] 00:00:00 00:00:00 Enoch [facility] Medic pretty Manriquez MD: GC_[facility]_ [address] [facility], [place] [address] , Ph. 2021-10-23 2021-10-23 Outpatient Aleshia Manriquez [facility] PRIV [id number] 00:00:00 00:00:00 Enoch [id number] 2021-10-22 2021-10-22 Outpatient [facility] PRIV PRIV [id number] [facility] 10:38:00 10:38:00 Black_D [id number] Medica l 2021-10-17 2021-10-17 Office WhitmanMaki, 1.2.840.1 [id number] [facility]i 10:20:00 12:00:57 Visit Alyssa Jha 98553.1.[address] 3.430.2.7 Hospit a .3.249734 l .8 2021-10-17 2021-10-17 Travel 1.2.840.1 1.2.101.004 [id number] [facility] 00:00:00 00:00:[address] 3.430.2.7 0.2.7.3.698 Ho spita .3.429353 084.8 l .8 2021-10-17 2021-10-17 Outpatient [facility] [id number] [place] 00:00:00 00:00:[address] ALYSSA [address] 2021-08-31 2021-08-31 Outpatient R [facility] [id number] Univers 11:15:00 11:15:[address] [facility] 2021-05-13 2021-05-13 Outpatient KASSANDRA, [facility] [id number] [place] 00:00:00 00:00:00 ALYSSA 483 Method i 2021-04-22 2021-04-22 Travel 1.2.840.1 1.2.523.165 [id number] [facility]i 00:00:00 00:00:[address] 3.430.2.7 0.2.7.3.698 Ho spita .3.670148 084.8 l .8 2021-04-19 2021-04-19 Telephone DONALD Goins 1.2.508.471 [id number] [facility] 00:00:00 00:00:00 Ly Jonnie FONTENOT 350.1.13.10 ity of [facility] 4.2.7.2.686 Pastor as [id number] [facility] 019 [place] 2021-04-17 2021-04-17 Outpatient R [facility] [id number] Univers 18:30:00 18:30:[address] [facility] 2021-04-17 2021-04-17 Orders Doctor DONALD 1.2.840.114 [id number] Univers 00:00:00 00:00:00 Only Unassigned, CORIE 350.1.13.10 ity of [place] [facility] 4.2.7.2.686 Pastor as [id number] [facility] 009 [place] 2021-04-08 2021-04-08 Travel 1.2.840.1 1.2.558.589 [id number] [facility] 00:00:00 00:00:[address] 3.430.2.7 0.2.7.3.698 Ho spita .3.596390 084.8 l .8 2021-03-29 2021-03-29 Refill Kassandra, 1.2.840.1 [id number] [facility] 00:00:00 00:00:00 Alyssa Jha [address]99.[address] 3.430.2.7 Hospit a .3.999447 l .8 2021-02-12 2021-02-12 Outpatient [facility] [facility]_ PRIV PRIV 504 [id number] [place] 03:12:00 03:12:00 Black_D [id number] Medica l 2020-10-07 2020-10-07 Office Kassandra, 1.2.840.1 [id number] Methodi 08:09:17 09:08:06 Visit Alyssa Jha 83629.1.[address] 3.430.2.7 Hospit a .3.759408 l .8 2020-10-07 2020-10-07 Travel 1.2.840.1 1.2.479.910 [id number] Methodi 00:00:00 00:00:[address] 3.430.2.7 0.2.7.3.698 Ho spita .3.998161 084.8 l .8 2020-09-17 2020-09-17 Travel 1.2.840.1 1.2.231.532 [id number] Methodi 00:00:00 00:00:[address] 3.430.2.7 0.2.7.3.698 Ho spita .3.545645 084.8 l .8 2020-05-01 2020-05-01 Office Kassandra, 1.2.840.1 [id number] Methodi 13:57:41 15:01:17 Visit Alyssa Jha 95012.1.[address] 3.430.2.7 Hospit a .3.612120 l .8 2020-05-01 2020-05-01 Travel 1.2.840.1 1.2.483.786 [id number] Methodi 00:00:00 00:00:[address] 3.430.2.7 0.2.7.3.698 Ho spita .3.805997 084.8 l .8 Results Test Description Test Time Test Comments Results Result Comments Source Hemoglobin A1c 2022-05-29 16:10:00 Test Item Value Reference Range Interpretation Comme nts Hemoglobin A1C (test code = 6.3 % 4.8-5.6 H Prediabetes: 5.7 - 6.4 4548-4) Diabetes: >6.4 Glycemic control for mariann lts with diabetes: <7.0 CRISTINA (test code = CRISTINA) Performed at: [facility] [address] [id number] Director: Zain Miranda MD, Phone: [phone] Lab Interpretation (test Abnormal code = 42324-8) [facility] [id number] 20:08:00 Test Item Value Reference Range Interpretation Comments Creatinine, 213.6 mg/dL Not Estab. urine (mg/dL) (test code = 2161-8) Albumin, urine 6.3 ug/mL Not Estab. (test code = 13082-0) Microalbumin/cr 3 See_Comment Normal: 0 - 29 eatinine ratio Moderately (test code = increased: 30 - 300 9318-7) Severely increa sed: >300 [Automated message] The sy stem which generated this result transmit leroy reference range : 0 - 29 mg/g creat. The reference range was not used to interpret this result as normal/abnormal . CRISTINA (test code Performed at: - = CRISTINA) [facility] [address] [id number] Director: Zain Miranda MD, Phone: [phone] [facility] CenterUrinalysis, automated with [id number] 16:10:00 Test Item Value Reference Range Interpretation Comments Specific gravity, 1.026 1.005-1.030 urine (test code = 5811-5) pH, urine (test code 5.5 5.0-7.5 = 5803-2) Color, UA (test code Yellow Yellow = 5778-6) Appearance (test code Turbid Clear A = 5767-9) WBC esterase, urine Negative Negative (test code = 5799-2) Protein, UA (test Negative Negative/Trace code = 56112-5) Glucose, urine (test Negative Negative code = 95658-4) Ketones, UA (test Negative Negative code = 2514-8) Occult blood, urine Negative Negative (test code = 5794-3) Bilirubin, UA (test Negative Negative code = 5770-3) Urobilinogen, UA 1.0 mg/dL 0.2-1.0 (test code = 51204-1) Nitrite, UA (test Negative Negative code = 5802-4) Microscopic See below: Microscopic was examination (test indicated and was code = 32720-3) performed. CRISTINA (test code = CRISTINA) Performed at: [facility] [id number] Director: Zain Miranda MD, Phone: [phone] Lab Interpretation Abnormal (test code = 49944-3) [facility] [id number] 16:10:00 Test Item Value Reference Range Interpretation Comments WBC, UA (test code None seen See_Comment [Automat ed = 5821-4) message] The system which generated this result transmit leroy reference range : 0 - 5 /hpf. The reference range was not used to interpret this result as normal/abnormal . RBC, UA (test code None seen See_Comment [Automat ed = 68178-3) message] The system which generated this result transmit leroy reference range : 0 - 2 /hpf. The reference range was not used to interpret this result as normal/abnormal . Epithelial cells 0-10 See_Comment [Automated (non renal) (test message] T he code = 5787-7) system which generated this result transmit leroy reference range : 0 - 10 /hpf. The reference range was not used to interpret this result as normal/abnormal . Casts (test code = None seen None seen /lpf 37662-5) Bacteria, UA (test None seen None seen/Few code = 5769-5) CRISTINA (test code = Performed at: CRISTINA) [facility] [address] [id number] Director: Zain Miranda MD, Phone: [phone] [facility] CenterComprehensive metabolic [id number] 14:11:00 Test Item Value Reference Range Interpretation Comments Glucose (test code 94 mg/dL 65-99 = 2345-7) BUN (test code = 16 mg/dL -4-0) Creatinine (test 0.78 mg/dL 0.57-1.00 code = 2160-0) EGFR Non-Afr. 88 mL/min/1.73 >=59 [place] (test code = 2775) EGFR 101 mL/min/1.73 >=59 In accorda nce with Citizen [place] (test recommendatio ns from code = 2774) the NKF-ASN Tas k force, [facility] is in the process of updating its eG FR calculation to the 2020 CKD-EPI creatinine equa tion that estimates kidney function withou t a race variable. BUN/creatinine 21 9-23 ratio (test code = 3097-3) Sodium (test code 141 mmol/L 134-144 = 2951-2) Potassium (test 4.0 mmol/L 3.5-5.2 code = 2823-3) Chloride (test 104 mmol/L 96-106 code = 2075-0) CO2 (test code = 23 mmol/L -2028-04) Calcium (test code 9.5 mg/dL 8.7-10.2 = 05104-7) Protein (test code 6.8 g/dL 6.0-8.5 = 2885-2) Albumin, S (test 3.9 g/dL 3.8-4.9 code = 1751-7) Globulin, total 2.9 g/dL 1.5-4.5 (test code = 12609-5) Albumin/globulin 1.3 1.2-2.2 ratio (test code = 1759-0) Total bilirubin 0.7 mg/dL 0.0-1.2 (test code = 1975-2) Alkaline 103 See_Comment [Automated mes chapincito] phosphatase (test The system which code = 6768-6) generated thi s result transmitted ref erence range: 44 - 121 IU/L. The reference r peter was not used to interpret this result as normal/abnor mal. AST (test code = 17 See_Comment [Automated message] 1920-03) The system whic h generated this result transmitted ref erence range: 0 - 40 I U/L. The reference r peter was not used to interpret this result as normal/abnor mal. ALT (test code = 16 See_Comment [Automated message] 3362-6) The system [employer] generated this result transmitted ref erence range: 0 - 32 I U/L. The reference r peter was not used to interpret this result as normal/abnor mal. CRISTINA (test code = Performed at: CRISTINA) - [address] [id number] Director: Zain Miranda MD, Phone: [phone] [facility] CenterLipid [id number] 14:11:00 Test Item Value Reference Range Interpretation Comments Cholesterol (test code = 146 mg/dL 323-258 4269-3) Triglycerides (test code 73 mg/dL 0-149 = 2571-8) HDL cholesterol (test 45 mg/dL >=39 code = 2085-9) VLDL cholesterol kiana 14 mg/dL 5-40 (test code = 98013-5) LDL Chol Calc ([facility]) 87 mg/dL 0-99 (test code = 80402-4) Non-HDL cholesterol 101 mg/dL 0-129 (test code = 82151-8) CRISTINA (test code = CRISTINA) Performed at: [address] [place] [id number] Director: Zain Miranda MD, Phone: [phone] [facility] CenterVitamin B12 [id number] 14:11:00 Test Item Value Reference Range Interpretation Comments Vitamin B12 (test code = >2000 232-1245 H 2132-9) CRISTINA (test code = CRISTINA) Performed at: [address] [place] [address] [id number] Director: Zain Miranda MD, Phone: [phone] Lab Interpretation (test Abnormal code = 18336-6) [facility] CenterFerritin [id number] 14:11:00 Test Item Value Reference Range Interpretation Comments Ferritin level (test code 336 ng/mL 15-150 H = 2276-4) CRISTINA (test code = CRISTINA) Performed at: [address] [place] [id number] Director: Zain Miranda MD, Phone: [phone] Lab Interpretation (test Abnormal code = 07844-5) [facility] CenterIron [id number] 14:11:00 Test Item Value Reference Range Interpretation Comments Iron level (test 63 ug/dL 27-159 code = 2498-4) CRISTINA (test code = Performed at: ) [facility] [address] [place], [place] [id number] Director: Zain Miranda MD, Phone: [phone] [facility] with platelet and [id number] 14:11:00 Test Item Value Reference Range Interpretation Comments WBC (test code = 6.4 See_Comment [Automated 7790-2) message] The system which generated this result transmit leroy reference range : 3.4 - 10.8 x10E3/uL. The reference range was not used to interpret this result as normal/abnormal . RBC (test code = 4.41 See_Comment [Automated 359-8) message] The system which generated this result transmit leroy reference range : 3.77 - 5.28 x10E6/uL. The reference range was not used to interpret this result as normal/abnormal . HGB (test code = 12.8 g/dL 11.1-15.9 718-7) HCT (test code = 39.9 % 34.0-46.6 4544-3) MCV (test code = 91 fL 79-97 787-2) MCH (test code = 29.0 pg 26.6-33.0 785-6) MCHC (test code = 32.1 g/dL 31.5-35.7 786-4) RDW (test code = 13.6 % 11.7-15.4 788-0) Platelet count 242 See_Comment [Automated (test code = 777-3) message] The system which generated this result transmit leroy reference range : 150 - 450 x10E3/uL. The reference range was not used to interpret this result as normal/abnormal . Neutrophils (test 44 % Not Estab. code = 770-8) Lymphocytes (test 47 % Not Estab. code = 736-9) Monocytes (test 7 % Not Estab. code = 5905-5) Eosinophils (test 1 % Not Estab. code = 713-8) Basophils (test 1 % Not Estab. code = 706-2) Neutrophils, 2.8 See_Comment [Automated absolute (test code message] The = 751-8) system which generated this result transmit leroy reference range : 1.4 - 7.0 x10E3/uL. The reference range was not used to interpret this result as normal/abnormal . Lymphocytes, 3.1 See_Comment [Automated absolute (test code message] The = 731-0) system which generated this result transmit leroy reference range : 0.7 - 3.1 x10E3/uL. The reference range was not used to interpret this result as normal/abnormal . Monocytes, absolute 0.4 See_Comment [Automa leroy (test code = 742-7) message] The system which generated this result transmit leroy reference range : 0.1 - 0.9 x10E3/uL. The reference range was not used to interpret this result as normal/abnormal . Eosinophils, 0.0 See_Comment [Automated absolute (test code message] The = 711-2) system which generated this result transmit leroy reference range : 0.0 - 0.4 x10E3/uL. The reference range was not used to interpret this result as normal/abnormal . Basophils, absolute 0.0 See_Comment [Automa leroy (test code = 704-7) message] The system which generated this result transmit leroy reference range : 0.0 - 0.2 x10E3/uL. The reference range was not used to interpret this result as normal/abnormal . Immature 0 % Not Estab. granulocytes (test code = 26035-4) Immature 0.0 See_Comment [Automated granulocytes, message] The absolute (test code system w [facility] = 69745-9) generated this result transmit leroy reference range : 0.0 - 0.1 x10E3/uL. The reference range was not used to interpret this result as normal/abnormal . CRISTINA (test code = Performed at: CRISTINA) - [facility] [id number] [place], [place] [id number] Director: Zain Miranda MD, Phone: [phone] [facility] C [id number] 14:11:00 Test Item Value Reference Range Interpretation Comments Hepatitis C Ab <0.1 See_Comment Negative: < 0.8 (test code = Indeterminate: 0.8 - 80470-6) 0.9 Positive: > 0.9 The CDC recomme nds that a positive HCV antibody result be followed up wit h a HCV Nucleic Aci d Amplification t est (491047). [Auto mated message] The sy stem which generated this result transmit leroy reference range : 0.0 - 0.9 s/co rati o. The reference r peter was not used to interpret this result as normal/abnormal . CRISTINA (test code = Performed at: 01 CRISTINA) - [facility] [address] [id number] Director: Zain Miranda MD, Phone: [phone] [facility] CenterTHYROID CASCADE PANEL/[id number] 14:11:00 Test Item Value Reference Interpretation Comments Range TSH (test 0.715 See_Comment No apparent thy roid disorder. code = [place] [address]-3) indicated. Inra re instances, Secondary Hypot hyroidism as well as SubclinicalHypo thyroidism have been reported i n some patients with normal TSH values. [Automated mess age] The system which generated this result transmitted ref erence range: 0.450 - 4.500 u IU/mL. The reference range was not used to interpret th is result as normal/abnormal . CRISTINA (test Performed at: 01 code = - [facility] CRISTINA) [address] [id number] Director: Zain Miranda MD, Phone: [phone] [facility] CenterMicroalbumin / creatinine urine [id number] 00:08:00 Test Item Value Reference Range Interpretation Comments Creatinine, urine, 198.1 mg/dL Not Estab. random (test code = 2161-8) Albumin, urine 7.7 ug/mL Not Estab. (test code = 90512-5) Microalbumin/creati See_Comment [Automa leroy message] nine ratio (test The system which code = 9318-7) generated thi s result transmitted ref erence range: 0 - 29 m g/g creat. The refe rence range was not u sed to interpret this result as normal/abnor mal. CRISTINA (test code = CRISTINA) [facility] CenterHemoglobin [id number] 23:08:00 Test Item Value Reference Range Interpretation Comments Hemoglobin A1C (test code = 4548-4) 5.6 % 4.8-5.6 CRISTINA (test code = CRISTINA) [facility] CenterUrinalysis, automated with [id number] 20:10:00 Test Item Value Reference Range Interpretation Comments Specific gravity, urine (test code 1.005-1.030 = 2965-2) pH, urine (test code = 5803-2) 5.0-7.5 Color, UA (test code = 5778-6) Yellow Yellow Appearance (test code = 5767-9) Clear Clear WBC esterase, urine (test code = Negative Negative 5799-2) Protein, UA (test code = 93028-1) Negative Negative/Trace Glucose, urine (test code = Negative Negative 2349-9) Ketones, UA (test code = 2514-8) Negative Negative Occult blood, urine (test code = Negative Negative 5794-3) Bilirubin, UA (test code = 5770-3) Negative Negative Urobilinogen, UA (test code = 0.2 mg/dL 0.2-1.0 32153-1) Nitrite, UA (test code = 5802-4) Negative Negative Microscopic examination (test code See below: = 62527-7) CRISTINA (test code = CRISTINA) [facility] CenterMicroscopic [id number] 20:10:00 Test Item Value Reference Range Interpretation Comments WBC, UA (test code = 0-5 See_Comment [Autom ated message] 5821-4) The system [employer] generated this result transmitted ref erence range: 0 - 5 /h pf. The reference range was not used to interpr et this result as normal/abnormal . RBC, UA (test code = 0-2 See_Comment [Autom ated message] 98361-7) The system [employer] generated this result transmitted ref erence range: [...] = 5769-5) CRISTINA (test code = CRISTINA) [facility] [id number] 07:06:00 Test Item Value Reference Range Interpretation Comments Glucose (test code = 103 mg/dL 65-99 H 2345-7) BUN (test code = 13 mg/dL 6-24 3094-0) Creatinine (test code 0.78 mg/dL 0.57-1.00 = 2160-0) EGFR Non-Afr. 88 mL/min/1.73 >59 [place] (test code = 2775) EGFR 102 mL/min/1.73 >59 (test code = 2774) BUN/creatinine ratio 9-23 (test code = 3097-3) Sodium (test code = 141 mmol/L 161-538 5281-2) Potassium (test code 4.5 mmol/L 3.5-5.2 = 2823-3) Chloride (test code = 104 mmol/L 96-106 2075-0) CO2 (test code = 26 mmol/L 20-29 2027-9) Calcium (test code = 9.4 mg/dL 8.7-10.2 42705-8) Protein (test code = 6.8 g/dL 6.0-8.5 2885-2) Albumin, S (test code 4.0 g/dL 3.8-4.9 = 1751-7) Globulin, total (test 2.8 g/dL 1.5-4.5 code = 82689-9) Albumin/globulin 1.2-2.2 ratio (test code = 1759-0) Total bilirubin (test 0.7 mg/dL 0.0-1.2 code = 1975-2) Alkaline phosphatase See_Comment [Autom ated (test code [...] CRISTINA) Lab Interpretation Abnormal (test code = 19761-3) [facility] CenterLipid [id number] 07:06:00 Test Item Value Reference Range Interpretation Comments Cholesterol (test code = 2093-3) 121 mg/dL 100-199 Triglycerides (test code = 2571-8) 44 mg/dL 0-149 HDL cholesterol (test code = 44 mg/dL >39 2085-9) VLDL cholesterol kiana (test code = 11 mg/dL 5-40 12899-4) LDL Chol Calc (NIH) (test code = 66 mg/dL 0-99 76284-3) Non-HDL cholesterol (test code = 77 mg/dL 0-129 08008-7) CRISTINA (test code = CRISTINA) [facility] CenterCB with platelet and [id number] 06:06:00 Test Item Value Reference Range Interpretation Comments WBC (test code = 6690-2) See_Comment [A utomated message] The system [employer] generated this result transmit leroy reference range : 3.4 - 10.8 x10E3/uL . The reference range was not used to interpret this result as normal/abnormal . RBC (test code = 789-8) See_Comment [Au tomated message] The system [employer] generated this result transmit leroy reference range [...] ated message] code = 777-3) The system [employer] generated this result transmit leroy reference range [...] 0 % Not Estab. (test code = 51295-0) Immature grans (abs) See_Comment [Autom ated message] (test code = 98520-6) The sy stem which generated this result transmit leroy reference range : 0.0 - 0.1 x10E3/uL. The reference range was not used to interpret this result as normal/abnormal . CRISTINA (test code = CRISTINA) Lab Interpretation (test Abnormal code = 31503-7) [facility]
[2022-10-02 09:49] LABS: SARS-COV-2 RT PCR NEGATIVE (NEGATIVE)
--- NOTE | 2022-10-02 10:38 | RAD REPORT ---
EXAM DESCRIPTION: RAD - Chest Single View - 10/02/2022 9:24 am CLINICAL HISTORY: CHEST PAIN Chest pain. COMPARISON: Chest Single View dated 08/28/2021; Chest Pa And Lat (2 Views) dated 04/28/2021; Chest Si ngle View dated 09/18/2019; Chest Single View dated 11/08/2018 FINDINGS: Portable technique limits examination quality. The lungs are grossly clear. The heart is normal in size. No displaced fractures. IMPRESSION: No acute intrathoracic process suspected.
--- NOTE | 2022-10-02 10:42 | ER ---
Nurse's Notes [facility] Name: Iliana Redding Age: 52 yrs Sex: Female : 1970 Arrival Date: 10/02/2022 Time: 08:47 Bed 20 Private MD: Diagnosis: Acute upper respiratory infection, unspecified Presentation: 10/02 08:51 Chief complaint: Patient states: Fernanda been congested, productive cough, I feel like my ko1 chest is tight. Coronavirus screen: At this time, the client does not indicate any symptoms associated with coronavirus-19. Ebola Screen: No symptoms or risks identified at this time. Initial Sepsis Screen: Does the patient meet any 2 criteria? No. Patient's initial sepsis screen is negative. Does the patient have a suspected source of infection? No. Patient's initial sepsis screen is negative. Risk Assessment: Do you want to hurt yourself or someone else? Patient reports no desire to harm self or others. Onset of symptoms was October 02, 2022. 08:51 Method Of Arrival: Ambulatory ko1 08:51 Acuity: OCHOA 3 ko1 Triage Assessment: 08:54 General: Appears in no apparent distress. comfortable, Behavior is calm, cooperative, ko1 appropriate for age. Pain: Denies pain. Cardiovascular: No deficits noted. 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 - Social history:: Smoking status: Patient denies any tobacco usage or history of. Screenin:00 [facility] ED Fall Risk Assessment (Adult) History of falling in the last 3 months, kr3 including since admission No falls in past 3 months (0 pts) Confusion or Disorientation No (0 pts) Intoxicated or Sedated No (0 pts) Impaired Gait No (0 pts) Mobility Assist Device Used No (0 pt) Altered Elimination No (0 pt) Score/Fall Risk Level 0 - 2 = Low Risk. Abuse screen: Denies threats or abuse. Nutritional screening: No deficits noted. Tuberculosis screening: No symptoms or risk factors identified. Assessment: 10:35 Reassessment: Patient appears in no apparent distress at this time. Patient and/or kr3 family updated on plan of care and expected duration. Pain level reassessed. Patient is alert, oriented x 3, equal unlabored respirations, skin warm/dry/pink. 11:00 Reassessment: Patient appears in no apparent distress at this time. kr3 11:02 Pain: Pain began. kr3 Vital Signs: 08:54 BP 150 / 114; Pulse 102; Resp 22; Temp 97.9; Pulse Ox 97% ; Weight 122.47 kg; Height 5 ko1 ft. 3 in. (160.02 cm); 10:35 BP 136 / 113; Pulse 90; Resp 20; Pulse Ox 96% on R/A; kr3 11:00 BP 129 / 110; Pulse 91; Resp 20; Pulse Ox 98% on R/A; kr3 08:54 Body Mass Index 47.83 (122.47 kg, 160.02 cm) ko1 ED Course: 08:47 Patient arrived in ED. as 08:49 Jeanna Worthington PA-C is [facility] sb4 08:49 Devendra Goodrich MD is Attending Physician. sb4 08:54 Triage completed. ko1 08:54 Arm band placed on right wrist. ko1 08:57 Nadja Stanford, JESS is Primary Nurse. ko1 09:00 Bed in low position. Call light in reach. Side rails up X 1. Pulse ox on. NIBP on. kr3 09:04 COVID swab sent to lab. Flu and/or RSV swab sent to lab. Strep swab sent to lab. tm3 09:26 Chest Single View XRAY In Process Unspecified. EDMS 11:01 No provider procedures requiring assistance completed. Patient did not have IV access kr3 during this emergency room visit. Patient maintains SpO2 saturation greater than 95% on room air. Administered Medications: No medications were administered Medication: 11:02 VIS not applicable for this client. kr3 Outcome: 10:41 Discharge ordered by . sb4 11:01 Discharged to home ambulatory. kr3 11:01 Condition: stable 11:01 Discharge instructions given to patient, Instructed on discharge instructions, follow up and referral plans. medication usage, Demonstrated understanding of instructions, follow-up care, medications, Prescriptions given X 1. 11:03 Patient left the ED. kr3 Signatures: Dispatcher [employer] EDDC Zaire Mcclendon tm3 Cora Roberto as Kavita Harris RN RN kr3 Nadja Stanford, RN RN ko1 Jeanna Worthington, PA-C PA-C sb4
--- NOTE | 2022-10-02 10:42 | EDPHYS ---
Physician Documentation [facility] Name: Iliana Redding Age: 52 yrs Sex: Female : 1970 Arrival Date: 10/02/2022 Time: 08:47 Bed 20 Private MD: ED Physician Devendra Goodrich HPI: 10/02 08:55 This 52 yrs old Black Female presents to ER via Ambulatory with complaints of Chest sb4 Tightness, Cough. 08:55 Patient is a 52-year-old female with hypertension and hyperlipidemia who presented to [facility] the emergency department with complaints of productive cough, chest tightness, and nasal congestion. She denies any sick contacts. Patient states that she was sick around the holidays but started feeling badly again this morning. Denies any shortness of breath or fever. Denies any alleviating or Aggravating factors.. [employer]: 08:54 LMP N/A - Hysterectomy ko1 Historical: - Allergies: 08:54 Aspirin; ko1 - PMHx: 08:54 Hypertensive disorder; ko1 - Immunization history:: Adult Immunizations unknown. - Social history:: Smoking status: Patient denies any tobacco usage or history of. ROS: 08:55 Constitutional: Negative for fever, chills, and weight loss, Eyes: Negative for injury, sb4 pain, redness, and discharge, ENT: Negative for injury, pain, and discharge, Abdomen/GI: Negative for abdominal pain, nausea, vomiting, diarrhea, and constipation, Back: Negative for injury and pain, MS/Extremity: Negative for injury and deformity, Skin: Negative for injury, rash, and discoloration. 08:55 Cardiovascular: Positive for chest tightness, Negative for chest pain, palpitations. 08:55 Respiratory: Positive for cough, reports sputum, is unsure of color, Negative for hemoptysis, orthopnea, shortness of breath, wheezing. 08:55 Allergy/Immunology: Positive for allergies. Exam: 08:55 Constitutional: This is a well developed, well nourished patient who is awake, alert, sb4 and in no acute distress. Head/Face: Normocephalic, atraumatic. Eyes: extra-ocular motions intact. Periorbital areas with no swelling, redness, or edema. Cardiovascular: Regular rate and rhythm with a normal S1 and S2. Respiratory: Lungs have equal breath sounds bilaterally, clear to auscultation and percussion. No rales, rhonchi or wheezes noted. No increased work of breathing, no retractions or nasal flaring. Abdomen/GI: Soft, non-tender, no distension. Skin: Warm, dry with normal turgor. Normal color with no rashes, no lesions, and no evidence of cellulitis. MS/ Extremity: Pulses equal, no cyanosis. Neurovascular intact. Full, normal range of motion. Vital Signs: 08:54 BP 150 / 114; Pulse 102; Resp 22; Temp 97.9; Pulse Ox 97% ; Weight 122.47 kg; Height 5 ko1 ft. 3 in. (160.02 cm); 10:35 BP 136 / 113; Pulse 90; Resp 20; Pulse Ox 96% on R/A; kr3 11:00 BP 129 / 110; Pulse 91; Resp 20; Pulse Ox 98% on R/A; kr3 08:54 Body Mass Index 47.83 (122.47 kg, 160.02 cm) ko1 MDM: 08:54 Patient medically screened. sb4 10:06 ED course: Awaiting radiology read.. sb4 10:38 Differential diagnosis: viral Infection, URI, bronchitis, pneumonia. Data reviewed: sb4 vital signs, nurses notes, radiologic studies, plain films, I have discussed the patient's presentation/case with the attending Emergency Department Physician; and as a result, I will discharge patient. I considered the following discharge prescriptions or medication management in the emergency department Antibiotics: At this time antibiotics are not recommended, Antivirals: At this time, antivirals are not recommended. Independent interpretation of the following test(s) in the Emergency Department X-Ray: My interpretation is No consolidation, pleural effusion, or other acute findings noted on my interpretation of chest xray. I compared with a prior study.. Test considered but Not performed: Labs: Labs initially considered but patient was nontoxic appearing, lungs clear, saturating appropriately, normal EKG.. Care significantly affected by the following chronic conditions: Hypertension, Obesity. Counseling: I had a detailed discussion with the patient and/or guardian regarding: the presence of at least one elevated blood pressure reading (>120/80) during this emergency department visit, radiology results, to return to the emergency department if symptoms worsen or persist or if there are any questions or concerns that arise at home. Special discussion: I discussed with the patient/guardian in detail that at this point there is no indication for admission to the hospital. It is understood, however, that if the symptoms persist or worsen the patient needs to return immediately for re-evaluation. I discussed with the patient/guardian that the patient's current presentation does not indicate dosing of antibiotics. They should follow-up with their primary care provider and return if the symptoms persist or progress. 10:41 ED course: BP elevated but patient had not taken home lisinopril this morning. . sb4 10/02 08:55 Order name: COVID-19/FLU A+B; Complete Time: 09:50 sb4 10/02 08:55 Order name: Strep; Complete Time: 09:49 sb4 10/02 08:55 Order name: Chest Single View XRAY; Complete Time: 10:38 sb4 10/02 09:49 Order name: Throat Culture EDAZ 10/02 10:01 Order name: EKG - Nurse/Tech; Complete Time: 11:02 sb4 Administered Medications: No medications were administered Disposition: 11:45 Co-signature as Attending Physician, Devendra Goodrich MD I reviewed the patient's care rn provided by the Advanced Practice Provider and agree with the diagnosis and treatment plan. Disposition Summary: 10/02/22 10:41 Discharge Ordered Location: Home sb4 Problem: new sb4 Symptoms: are unchanged sb4 Condition: Stable sb4 Diagnosis - Acute upper respiratory infection, unspecified sb4 Followup: sb4 - With: Private Physician - When: As needed - Reason: Recheck today's complaints, Continuance of care, Re-evaluation by your physician Discharge Instructions: - Discharge Summary Sheet sb4 - Viral Respiratory Infection sb4 Forms: - Medication Reconciliation Form sb4 - Thank You Letter sb4 - Antibiotic Education sb4 - Prescription Opioid Use sb4 Prescriptions: - Tessalon Perles 100 mg Oral Capsule - take 1 capsule by ORAL route every 8 hours As needed; 15 capsule; Refills: 0, sb4 Product Selection Permitted Signatures: Dispatcher [employer] Devendra Arshad MD MD rn Oliver, Kathy, RN RN Jeanna Becerra PA-C PA-C sb4
[2022-10-02 11:13] VITALS: TEMP 97.9
[2022-10-02 11:24] VITALS: BP 129/110; O2SAT 98
== END 2022-10-02 11:03 | disposition home or self-care (01) ==
LOC: ER 08:45
DX: J06.9 Acute upper respiratory infection, unspecified (principal); Z20.822 Contact with and (suspected) exposure to COVID-19; I10 Essential (primary) hypertension; Z88.6 Allergy status to analgesic agent
CPT/HCPCS: 87070; 87081; 0240U; 71045; 99284; 93005

== ENCOUNTER 2022-12-25 01:53 | Observation (INO) | payer OTHER ==
--- OUTSIDE RECORDS SUMMARY | 2022-12-25 01:58 | XMS REPORT | Continuity of Care Document ---
:1970 Author Organization [facility] t Address [address]. [address] [place] [address] Care Team Providers Name Role Phone Kassandra TAYLOR, Alyssa Jha Primary Care Physician [phone] Kassandra TAYLOR, Alyssa Jha Attending Clinician GC_LISANDRO_Black_D Attending Clinician Unavailable Aleshia Manriquez Attending Clinician [phone] Buster RN, Ly Cristina Attending Clinician Unavailable Doctor Unassigned, [place] Attending Clinician Unavailable PATRICIA_LISANDRO_Black_D Admitting Clinician Unavailable Payers Payer Name Policy Type Policy Number Effective Date Expiration Date S ource ALLIED BENEFIT [id number] 2014 SYSTEMS 00:00:00 MULTIPLAN GENERIC [id number] 2015 00:00:00 Problems Condition Condition Condition Status [...] Methodi 03-30 st 00:00: Hospita 00 l Morbid Morbid Disease Active Methodi obesity obesity 03-30 00:00: Hospita 00 l Prediabete Prediabete Disease Active M ethodi s s 03-30 00:00: Hospita 00 l Essential Essential Disease Active Met hodi hypertensi hypertensi 11-18 st on on 00:00: Hospita 00 l Menopause Menopause Disease Active Met hodi 11-18 00:00: Hospita 00 l Sleep Sleep Disease [...] Date Source Natural daughter No Known Problems [facility] Natural daughter Pancreatitis Method [facility] Natural sister No Known Problems [facility] Natural son No Known Problems Method [facility] Natural brother [facility] Natural father Hypertension [facility] Natural mother Arthritis [facility] mother Asthma [facility] mother Depression [facility] Natural mother Diabetes [facility] Natural mother Heart disease Method[facility] Natural mother Hypertension [facility] Social History Social Habit Start Date Stop Date Quantity Comments Source Gender identity 2019-05-23 Identifies as Method ist 11:45:14 female gender Hospital (finding) Sexual orientation 2019-05-23 Heterosexual Meth odist 11:45:14 (finding) Hospital Exposure to Not sure [facility] SARS-CoV-2 (event) Hospit al Alcohol intake 2022-10-08 2022-10-08 Current non-drinker M ethodist 00:00:00 00:00:00 of alcohol Hospital (finding) History of Social 2022-10-08 2022-10-[address] function 00:00:00 00:00:00 Hospital Tobacco use and 2021-10-17 2021-10-17 Smokeless tobacco [facility]ist exposure 00:00:00 00:00:00 non-user Hospital Sex Assigned At [birth year] [facility] 00[facility]00 00[facility]00[facility]00 [facility] Smoking Status Start Date Stop Date Source Never smoked tobacco [facility] Medications Ordered Filled Start Stop Current Ordering Indication Dosage Frequency Signature Comments Components Source Medication Medication Date Date Medication? Clinician (SIG) Name Name pantoprazol Yes [id number] TAKE 1 Methodi e 3-[address] (PROTONIX) 00:00: MOUTH ONCE H ospita 40 MG EC 00 DAILY l tablet NEEDED hydroCHLORO 2022-0 Yes [id number] 12.5mg QD Take 1 Methodi thiazide 3-[address] (HYDRODIURI 00:00: (12.5 mg Ho spita L) 12.5 MG 00 total) by l tablet mouth daily. benzonatate 2022-0 Yes 100mg Q.[id number] Take 1 [facility]i (TESSALON) 2-[id number] 100 MG 11:39: 3D (100 mg Hospita capsule 25 total) by l mouth 3 (three) times a day as needed for cough. hydrOXYzine 2022-0 Yes [id number] 10mg Q.[id number] Take 1 [facility] (ATARAX) 10 2-09 [id number] tablet (10 st MG tablet 00:00: 3D mg total) Hos ban 00 by mouth 3 l (three) times a day as needed for anxiety. semaglutide 2023- Yes [id number] Inject Methodi (Ozempic) 10-08-[address] 0.25 mg or 00:00: 04:59 (0.25 mg Ho spita 0.5 mg(2 00 :00 total) l mg/1.5 mL) under the subcutaneou skin every s pen 7 days for 30 days, THEN 0.38 mL (0.5 mg total) every 7 days. bromphenira 2022- No [id number] 5mL Q.25D Take 5 mL Methodi mine-pseudo 10-08 by mouth 4 s t eph-DM 00:00: 05:59 (four) Hospita - 00 :00 times a l mg/5 mL day as syrup needed for cough for up to 10 days. amoxicillin 2022- No [id number] 1{tbl} Q.5D Take 1 Methodi -pot 10-[address] clavulanate 00:00: 05:59 mouth 2 Ho spita (Augmentin) 00 :00 (two) l 875-125 mg times a per tablet day for 7 days. atorvastati Yes [id number] 20mg QD Take 1 Methodi n (LIPITOR) 05-28 tablet (20 st 20 mg 00:00: mg total) Hospita tablet 00 by mouth l nightly. citalopram Yes [id number] TAKE 1 & Methodi (CeleXA) 20 - 1/2 (ONE & st MG tablet 00:00: ONE-HALF) Hos ban 00 TABLETS BY l MOUTH ONCE DAILY lisinopriL 0 Yes [id number] 20mg Q.5D Take 1 M ethodi (PRINIVIL) - tablet (20 st 20 mg 00:00: mg total) Hospita tablet 00 by mouth 2 l (two) times a day. pantoprazol 0 Yes [id number] 40mg Q24H Take 1 Methodi e 9-29 tablet (40 st (PROTONIX) 00:00: mg total) Ho spita 40 MG EC 00 by mouth l tablet daily as needed (GERD). atorvastati Yes [id number] 20mg QD Take 1 Methodi n (LIPITOR) 05-28 tablet (20 st 20 mg 00:00: mg total) Hospita tablet 00 by mouth l nightly. citalopram Yes [id number] TAKE 1 & Methodi (CeleXA) 20 05-28 1/2 (ONE & st MG tablet 00:00: ONE-HALF) Hos ban 00 TABLETS BY l MOUTH ONCE DAILY lisinopriL Yes [id number] 20mg Q.5D Take 1 M ethodi (PRINIVIL) 05-28 tablet (20 st 20 mg 00:00: mg total) Hospita tablet 00 by mouth 2 l (two) times a day. pantoprazol 2022- No [id number] 40mg Q24H Take 1 Methodi e 05-28 tablet (40 st (PROTONIX) 00:00: 00:00 mg total) H ospita 40 MG EC 00 :00 by mouth l tablet daily as needed (GERD). lisinopriL 2021- No [id number] TAKE 1 Methodi (PRINIVIL) 05-[address] 20 mg 00:00: 00:00 MOUTH Hospita tablet 00 :00 TWICE l DAILY (INCREASED DOSE) lisinopriL 2021- No [id number] TAKE 1 Methodi (PRINIVIL) 05-[address] 20 mg 00:00: 00:00 MOUTH Hospita tablet 00 :00 TWICE l DAILY (INCREASED DOSE) pantoprazol 2021- No [id number] TAKE 1 Methodi e 02-[address] (PROTONIX) 00:00: 00:00 MOUTH ONCE Hospita 40 MG EC 00 :00 DAILY l tablet NEEDED ( REFLUX ) STOP RANITIDINE pantoprazol 2021- No [id number] TAKE 1 Methodi e 02-[address] (PROTONIX) 00:00: 00:00 MOUTH ONCE Hospita 40 MG EC 00 :00 DAILY l tablet NEEDED ( REFLUX ) STOP RANITIDINE cyclobenzap Yes [id number] 10mg QD Take 1 Methodi rine 3-12 tablet (10 st (FLEXERIL) 00:00: mg total) Ho spita 10 mg 00 by mouth l tablet nightly as needed for muscle spasms. rx with refills will last 1 year cyclobenzap Yes [id number] 10mg QD Take 1 Methodi rine 3-12 tablet (10 st (FLEXERIL) 00:00: mg total) Ho spita 10 mg 00 by mouth l tablet nightly as needed for muscle spasms. rx with refills will last 1 year lisinopriL 2021- No [id number] 20mg Q.5D Take 1 Methodi (PRINIVIL) 11-08 tablet (20 st 20 mg 00:00: 00:00 mg total) Hospit a tablet 00 :00 by mouth 2 l (two) times a day. Increase dose lisinopriL 2021- No [id number] 20mg Q.5D Take 1 Methodi (PRINIVIL) 11-08 tablet (20 st 20 mg 00:00: 00:00 mg total) Hospit a tablet 00 :00 by mouth 2 l (two) times a day. Increase dose cetirizine Yes [id number] 10mg QD Take 1 M ethodi (ZyrTEC) 10 9-14 tablet (10 st MG tablet 00:00: mg total) Hos ban 00 by mouth l daily. cetirizine Yes [id number] 10mg QD Take 1 M ethodi (ZyrTEC) 10 9-14 tablet (10 st MG tablet 00:00: mg total) Hos ban 00 by mouth l daily. citalopram 2021- No [id number] TAKE 1 & Methodi (CeleXA) 20 05-13 (ONE & s t MG tablet 00:00: 00:00 ONE-HALF) Ho spita 00 :00 TABLETS BY l MOUTH ONCE DAILY atorvastati 2021- No [id number] 20mg QD Take 1 Methodi n (LIPITOR) 05-13 tablet (20 s t 20 mg 00:00: 00:00 mg total) Hospit a tablet 00 :00 by mouth l nightly. citalopram 2021- No [id number] TAKE 1 & Methodi (CeleXA) 20 05-13 (ONE & s t MG tablet 00:00: 00:00 ONE-HALF) Ho spita 00 :00 TABLETS BY l MOUTH ONCE DAILY atorvastati 2021- No [id number] 20mg QD Take 1 Methodi n (LIPITOR) 05-13 tablet (20 s t 20 mg 00:00: 00:00 mg total) Hospit a tablet 00 :00 by mouth l nightly. pantoprazol 2021- No [id number] 40mg Q24H Take 1 Methodi e 05-13 tablet (40 st (Protonix) 00:00: 00:00 mg total) H ospita 40 MG EC 00 :00 by mouth l tablet daily as needed (reflux). Dc ranitidine pantoprazol 2021- No [id number] 40mg Q24H Take 1 Methodi e 05-13 tablet (40 st (Protonix) 00:00: 00:00 mg total) H ospita 40 MG EC 00 :00 by mouth l tablet daily as needed (reflux). Dc ranitidine lisinopriL 2021- No [id number] 20mg QD Take 1 Methodi (PRINIVIL) 05-13 0312 tablet (20 st 20 mg 00:00: 00:00 mg total) Hospit a tablet 00 :00 by mouth l daily. lisinopriL Yes [id number] Take 1 M ethodi (PRINIVIL) 8-[address] 20 mg 00:00: mouth once Hospit a tablet 00 daily l pantoprazol Yes [id number] 40mg Q24H Take 1 Methodi e 2-08 tablet (40 st (Protonix) 00:00: mg total) Ho spita 40 MG EC 00 by mouth l tablet daily as needed (reflux). Dc ranitidine citalopram Yes [id number] 30mg QD Take 1.5 Methodi (CeleXA) 20 - tablets st MG tablet 00:00: (30 mg Hospit a 00 total) by l mouth daily. Increase dose atorvastati Yes [id number] 20mg QD Take 1 Methodi n (LIPITOR) 9 tablet (20 st 20 mg 00:00: mg total) Hospita tablet 00 by mouth l nightly. lisinopriL 2020- No [id number] 20mg QD Take 1 Methodi (PRINIVIL) 05-01- [...] l estradioL 2020-0 Yes .5mg QD Take 1 Method i (ESTRACE) 8-[address] 0.5 MG 00:00: (0.5 mg Hospita tablet 00 total) by l mouth daily. lisinopriL 2019- No [id number] Take 1 Methodi (PRINIVIL) 02-[address] 20 mg 00:00: 00:00 mouth once Hospi ta tablet 00 :00 daily l cyclobenzap Yes [id number] 10mg QD Take 1 Methodi rine 3-30 tablet (10 st (FLEXERIL) 00:00: mg total) Ho spita 10 mg 00 by mouth l tablet nightly as needed for muscle spasms. cyclobenzap 2021- No [id number] 10mg QD Take 1 Methodi rine 3-30 03-12 tablet (10 st (FLEXERIL) 00:00: 00:00 mg total) H ospita 10 mg 00 :00 by mouth l tablet nightly as needed for muscle spasms. pantoprazol 2020- No [id number] 40mg QD Take 1 Methodi e 3-30 -08 tablet (40 st (Protonix) 00:00: 00:00 mg total) H ospita 40 MG EC 00 :00 by mouth l tablet daily. Dc ranitidine citalopram 2019- No [id number] 30mg QD Take 1.5 Methodi (CeleXA) 20 -30 - tablets st MG tablet 00:00: 00:00 (30 mg Hospi ta 00 :00 total) by l mouth daily. Increase dose atorvastati 2018-08 2020- No [id number] TAKE 1 Methodi n (LIPITOR) 0-30 05-[address] 20 MG 00:00: 00:00 MOUTH Hospita tablet 00 :00 NIGHTLY l flash 2019- No [id number] 1{each} QD 1 each Me th[facility] glucose 10-[address] scanning 00:00: 00:00 Hospita reader 00 :00 l (FREESTYLE DIXON 14 DAY READER) [facility]- No [id number] 1{each} QD 1 each Me [facility] glucose -05-[address] sensor 00:00: 00:00 Hospita (FREESTYLE 00 :00 l DIXON 14 DAY SENSOR) kit ATORVASTATI Yes [id number] TAKE ONE Univers N 20 mg 5-23 TABLET BY ity of tablet 00:00: MOUTH AT [place] 00 BEDTIME Medical Branch ATORVASTATI 0 Yes [id number] TAKE ONE Univers N 20 mg 5-23 TABLET BY ity of tablet 00:00: MOUTH AT [place] 00 BEDTIME Medical Branch LISINOPRIL 2018-0 Yes [id number] TAKE ONE Univers 20 mg 4-13 TABLET BY ity of tablet 00:00: MOUTH ONCE 00 DAILY Medical Branch LISINOPRIL 2018-0 Yes [id number] TAKE ONE Univers 20 mg 4-13 TABLET BY ity of tablet 00:00: MOUTH ONCE [place] 00 DAILY [facility] citalopram 2017 Yes [id number] 10mg Take 1 U nivers 10 mg 2-22 tablet by ity of tablet 00:00: mouth [place] 00 daily. Medical [facility] citalopram 2017 Yes [id number] 10mg Take 1 U nivers 10 mg [...] Date Status Commen ts Source Name Name SHAW KOHLERID-19 MRNA 2022-10-08 Completed Met hodist BIVALENT BOOSTER 00:00:00 Hospital VACCINATION FLUCELVAX QUAD PF 2022-05-[address] 00:00:00 Hospital FLUCELVAX QUAD PF 2022-05-[address] 00:00:00 Hospital Tdap 2022-04-20 Completed [facility] 00:00:00 Hospital Zoster Vaccine 2022-04-20 Completed [facility] Recombinant 00:00:00 Hospital Tdap 2022-04-20 Completed [facility] 00:00:00 Hospital Zoster Vaccine 2022-04-20 Completed Christian Recombinant 00:00:00 [facility] SHAW COVID-19 MRNA 2022-01-16 Completed Met hodist VACCINATION 00:00:00 Hospital Zoster Vaccine 2022-01-16 Completed [facility] Recombinant 00:00:00 Hospital Zoster Vaccine 2022-01-16 Completed Christian Recombinant 00:00:00 [facility] SHAW COVID-19 MRNA 2022-01-16 Completed Met hodist VACCINATION 00:00:00 [facility] FLUCELVAX QUAD PF 2021-10-[address] 00:00:00 Hospital FLUCELVAX QUAD PF 2021-10-[address] 00:00:00 [facility] influenza, influenza, 2021-10-17 Completed [facility] unspecified unspecified 00:00:00 formulation formulation PRISCILLAA COVID-19 MRNA 2021-02-08 Completed Met hodist VACCINATION 00:00:00 [facility] PRISCILLAA COVID-19 MRNA 2021-02-08 Completed Met hodist VACCINATION 00:00:00 [facility] COVID-19 (SARS-COV-2) COVID-19 2021-02-08 Completed [facility] vaccine, unspecified (SARS-COV-2) 00:00:00 vaccine, unspecified [facility] COVID-19 MRNA 2021-01-11 Completed [facility] 2021-01-11 Completed Met hodist VACCINATION 00:00:00 [facility] COVID-19 (SARS-COV-2) COVID-19 2021-01-11 Completed [facility] vaccine, unspecified (SARS-COV-2) 00:00:00 vaccine, unspecified Influenza (IM) 2019-09-19 Completed [facility] Preservative Free 00:00:00 Hospita l Influenza (IM) 2019-09-19 Completed [facility] Preservative Free 00:00:00 Hospita l Influenza (IM) 2019-09-19 Completed [facility] Preservative Free 00:00:00 Hospita l FLUZONE QUAD PF 2019-05-25 Completed [facility] 00:00:00 Hospital FLUZONE QUAD PF 2019-05-25 Completed [facility] 00:00:00 Hospital FLUZONE QUAD PF 2019-05-25 Completed [facility] 00:00:00 Hospital FLUZONE QUAD PF 2018-10-18 Completed [facility] 00:00:00 Hospital FLUZONE QUAD PF 2018-10-18 Completed [facility] 00:00:00 Hospital FLUZONE QUAD PF 2018-10-18 Completed [facility] 00:00:00 Hospital FLUZONE QUAD 2017-08-20 Completed [facility] 00:00:00 Hospital FLUZONE QUAD 2017-08-20 Completed [facility] 00:00:00 Hospital FLUZONE QUAD 2017-08-20 Completed [facility] 00:00:00 [facility] Influenza Virus 2017-08-20 Completed Universit y of Vaccine Quad IM 3+ 00:00:00 [facility] Influenza Virus 2017-08-20 Completed Universit y of Vaccine Quad IM 3+ 00:00:00 [facility] Pneumococcal 2013-03-12 Completed [facility] Polysaccharide 00:00:00 [facility] Pneumococcal 2013-03-12 Completed [facility] Polysaccharide 00:00:00 Hospital Pneumococcal 2013-03-12 Completed [facility] Polysaccharide 00:00:00 [facility] Pneumococcal 2013-03-12 Completed University o f Polysaccharide, 00:00:00 [place] [facility] ical PPSV23 (PNEUMOVAX) Branch Pneumococcal 2013-03-12 Completed University o f Polysaccharide, 00:00:00 [place] Med ical PPSV23 (PNEUMOVAX) Branch Vital Signs Vital Name Observation Time Observation Value Comments Source BP Diastolic 2021-10-23 00:00:00 82 mm[Hg] Jess lovett Height 2021-10-23 00:00:00 63 [in_i] Jess lovett BMI (Body Mass 2021-10-23 00:00:00 51.3 kg/m2 [facility]) BP Systolic 2021-10-23 00:00:00 124 mm[Hg] [facility] Body Weight 2021-10-23 00:00:00 289[facility]6 [facility] 2022-10-08 17:34:00 152 mm[Hg] [facility] Hospital pressure Diastolic blood 2022-10-08 17:34:00 121 mm[Hg] [facility] pressure Heart rate 2022-10-08 17:34:00 91 /min [facility] Body height 2022-10-08 17:34:00 160 cm [facility] Body weight 2022-10-08 17:34:00 131.997 kg [facility] BMI 2022-10-08 17:34:00 51.55 kg/m2 [facility] Systolic blood 2022-05-28 14:02:00 126 mm[Hg] Method [facility] pressure Diastolic blood 2022-05-28 14:02:00 92 [facility] Heart rate 2022-05-28 14:02:00 87 /min [facility] Body height 2022-05-28 14:02:00 160 cm [facility] Body weight 2022-05-28 14:02:00 130.636 kg [facility] BMI 2022-05-28 14:02:00 51.02 kg/m2 [facility] Oxygen saturation in 2021-10-17 17:17:00 100 /min [facility] Arterial blood by Pulse oximetry Systolic blood 2020-10-07 14:13:00 134 mm[Hg] [facility] pressure Diastolic blood 2020-10-07 14:13:00 84 [facility]Hg[facility] Heart rate 2020-10-07 14:13:00 77 /min [facility] Body height 2020-10-07 14:13:00 160 cm [facility] Body weight 2020-10-07 14:13:00 126.1 kg [facility] BMI 2020-10-07 14:13:00 49.25 kg/m2 [facility] Procedures Procedure Date / Time Performing Clinician Source Performed VITAMIN D 25 HYDROXY LEVEL 2022-10-16 14:16:00 Alyssa Singleton [facility] ALBUMIN WITH CREATININE 2022-10-16 14:16:00 Kassandra [facility] AND RATIO, RANDOM URINE LIPID PANEL 2022-10-16 14:16:00 [facility], [facility] HEMOGLOBIN A1C 2022-10-16 14:16:00 [facility], [facility] COMPREHENSIVE METABOLIC 2022-10-16 14:16:00 [facility], [facility] PANEL CBC WITH PLATELET AND 2022-10-16 14:16:00 [facility], [facility] DIFFERENTIAL TSH WITH REFLEX TO FREE T4 2022-10-16 14:16:00 [facility], [facility] ESTIMATED GFR 2022-10-16 14:16:00 [facility], [facility] HEMOGLOBIN A1C 2022-05-28 15:16:00 [facility], [facility] MAMMO, screening, digital, 2021-10-23 00:00:00 [facility] bilateral URINALYSIS, AUTOMATED WITH 2021-10-17 22:46:00 [facility], [facility] MICROSCOPY MICROSCOPIC EXAMINATION 2021-10-17 22:46:00 [facility], [facility] HEPATITIS C ANTIBODY 2021-10-17 18:21:00 [facility], [facility] MICROALBUMIN / CREATININE 2021-10-17 18:21:00 [facility], [facility] URINE RATIO CBC WITH PLATELET AND 2021-10-17 18:21:00 [facility], [facility] DIFFERENTIAL COMPREHENSIVE METABOLIC 2021-10-17 18:21:00 [facility], [facility] PANEL LIPID PANEL 2021-10-17 18:21:00 [facility], [facility] THYROID CASCADE 2021-10-17 18:21:00 [facility], [facility] PANEL/REFLEX HEMOGLOBIN A1C 2021-10-17 18:21:00 [facility], [facility] FERRITIN LEVEL 2021-10-17 18:21:00 [facility], [facility] IRON LEVEL 2021-10-17 18:21:00 [facility] VITAMIN B12 LEVEL 2021-10-17 18:21:00 [facility] ASSIGNMENT OF BENEFITS 2021-04-17 23:30:56 Doctor Unassigned, Un [facility] [place] [facility] URINALYSIS, AUTOMATED WITH 2020-10-07 17:34:00 [facility] MICROSCOPY MICROSCOPIC EXAMINATION 2020-10-07 17:34:00 [facility] MICROALBUMIN / CREATININE 2020-10-07 17:34:00 [facility] URINE RATIO CBC WITH PLATELET AND 2020-10-07 17:34:00 [facility] DIFFERENTIAL COMPREHENSIVE METABOLIC 2020-10-07 17:34:00 [facility] PANEL HEMOGLOBIN A1C 2020-10-07 17:34:00 [facility] LIPID PANEL 2020-10-07 17:34:00 [facility] Cholecystectomy 2014-05-30 00:00:00 [facility] (Gallbladder) Hysterectomy with 2012-08-30 00:00:00 [facility] Oopherectomy (Ovaries Removed) Plan of Care Planned Activity Planned Date Details Comments Source Future Scheduled 2022-12-25 Pneumococcal Vaccine: [facility] Test 01:56:06 Pediatrics (0 to 5 Hospital Years) and At-Risk Patients (6 to 64 Years) (2 - PCV) [code = Pneumococcal Vaccine: Pediatrics (0 to 5 Years) and At-Risk Patients (6 to 64 Years) (2 - PCV)] Future Scheduled 2022-12-25 COLONOSCOPY SCREENING [facility] Test 01:56:06 [code = COLONOSCOPY Hospital SCREENING] Future Scheduled 2022-12-25 DIABETES: RETINAL EYE [facility] Test 01:56:06 EXAM [code = DIABETES: Hospi lyly RETINAL EYE EXAM] Future Scheduled 2022-12-25 BREAST CANCER SCREENING [facility] Test 01:56:06 [code = BREAST CANCER Hospit al SCREENING] Future Scheduled 2022-12-25 INFLUENZA VACCINE [code [facility] Test 01:56:06 = INFLUENZA VACCINE] Hospita l Future Scheduled 2022-12-25 DIABETIC FOOT EXAM [code [facility] Test 01:56:06 = DIABETIC FOOT EXAM] Hospit al Future Scheduled 2022-12-25 URINE MICROALBUMIN [code [facility] Test 01:56:06 = URINE MICROALBUMIN] Hospit al Future Scheduled 2022-09-20 Pneumococcal Vaccine: [facility]ist [...] series)] Future Scheduled 2022-09-20 DIABETIC FOOT EXAM [code [facility] Test 00:58:01 = DIAB[facility]IC FOOT EXAM[facility] 2022-[facility]-20 URINE MICROALBUMIN [code [facility] Test 00:58:01 = URINE MICROALBUMIN] Hospit al Future Scheduled 2022-09-20 BREAST CANCER SCREENING [facility] Test 00:58:01 [code = BREAST CANCER Hospit al SCREENING] Diagnostic Test 2021-10-23 Cytomegalovirus Ab [facility] Pending 00:00:00 [Titer] in Serum or Plasma by Latex agglutination [code = 5121-9] Diagnostic Test 2021-10-23 Weight of 24 hour [facility] Pending 00:00:00 Specimen [code = 3153-4] Diagnostic Test 2021-10-23 Indirect antiglobulin [facility] Pending 00:00:00 test.IgG specific reagent [Presence] [...] (1) Met [facility]ist Test [code = COVID-19 VACCINE Hos pital (1)] Future Scheduled Hepatitis C screening [facility] Test (procedure) [code = Hospital 634646523] Future Scheduled COLONOSCOPY SCREENING [facility] Test [code = COLONOSCOPY Hospital SCREENING] Future Scheduled DIABETIC FOOT EXAM [code [facility] Test = DIABETIC FOOT EXAM] Hospit al Future Scheduled DIABETES: RETINAL EYE [facility] Test EXAM [code = DIABETES: Hospi lyly RETINAL EYE EXAM] Future Scheduled INFLUENZA VACCINE [code [facility] Test = INFLUENZA VACCINE] Hospita l Future Scheduled SHINGLES VACCINES (#1) M ethodist Test [code = SHINGLES Hospital VACCINES (#1)] Future Scheduled URINE MICROALBUMIN [code [facility] Test = URINE MICROALBUMIN] Hospit al Future Scheduled BREAST CANCER SCREENING [facility] Test [code = BREAST CANCER Hospit al SCREENING] Encounters Start End Encounter Admission Attending Care Care Encounter Source Date/Time Date/Time Type Type Clinicians Facility Department ID 2022-11-25 2022-11-25 Refill Kassandra, [id number] [facility] 00:00:00 00:00:[address] [id number] Hospit a .[id number] l .8 2022-11-18 2022-11-18 Outpatient GC_[facility]AOM[facility]_ PRIV PRIV [id number] [facility] 00:00:00 00:00:00 Black_D [id number] Medica l 2022-11-13 2022-11-13 Outpatient GC_SWHAOMC_ PRIV PRIV [id number] [facility] 00:00:00 00:00:00 Black_D [id number] Medica l 2022-10-16 2022-10-16 Lab Kassandra [id number] [facility] 08:20:00 08:25:[id number] [id number] Hospit a .[id number] l .8 2022-10-16 2022-10-16 Outpatient ANTONETTEJUAN, [facility] [id number] [place] 00:00:00 00:00:00 ALYSSA [address] 2022-10-08 2022-10-08 Office AntonetteJuan, 1.2.840.1 [id number] Methodi 10:40:00 12:28:47 Visit Alyssa Jha 86794.1.[address] 3.430.2.7 Hospit a .3.389972 l .8 2022-10-08 2022-10-08 Outpatient KASSANDRA, [facility] [id number] [place] 00:00:00 00:00:00 ALYSSA [address] 2022-05-28 2022-05-28 Office AntonetteJuan, 1.2.840.1 [id number] Methodi 09:00:00 10:12:24 Visit Alyssa Jha 41279.1.[address] 3.430.2.7 Hospit a .3.244517 l .8 2022-05-28 2022-05-28 Office WhitmanJuan, 1.2.840.1 [id number] Methodi 09:00:00 10:12:24 Visit Alyssa Jha 49823.1.[address] 3.430.2.7 Hospit a .3.589936 l .8 2022-05-28 2022-05-28 Travel 1.2.840.1 1.2.522.525 9195 [id number] Methodi 00:00:00 00:00:[address] 3.430.2.7 0.2.7.3.698 Ho spita .3.201671 084.8 l .8 2022-05-28 2022-05-28 Travel 1.2.840.1 1.2.062.050 4980 [id number] Methodi 00:00:00 00:00:[address] 3.430.2.7 0.2.7.3.698 Ho spita .3.235431 084.8 l .8 2022-05-01 2022-05-01 Refill Whitman-Martinez, 1.2.840.1 [id number] Methodi 00:00:00 00:00:[address] 3.430.2.7 Hospit a .3.483295 l .8 2022-05-01 2022-05-01 Refill Whitman-Martinez, 1.2.840.1 [id number] 816 [id number] Methodi 00:00:00 00:00:[address] 3.430.2.7 Hospit a .3.361390 l .8 2022-03-30 2022-03-30 Travel 1.2.840.1 1.2.565.867 3756 [id number] Methodi 00:00:00 00:00:[address] 3.430.2.7 0.2.7.3.698 Ho spita .3.333709 084.8 l .8 2022-03-30 2022-03-30 Travel 1.2.840.1 1.2.467.364 4955 [id number] Methodi 00:00:00 00:00:[address] 3.430.2.7 0.2.7.3.698 Ho spita .3.313664 084.8 l .8 2022-02-21 2022-02-21 Refill Whitman-Martinez, 1.2.840.1 [id number] Methodi 00:00:00 00:00:00 [address] 3.430.2.7 Hospit a .3.246693 l .8 2022-02-21 2022-02-21 Refill Whitman-Martinez, 1.2.840.1 [id number] 844 [id number] Methodi 00:00:00 00:00:[address] 3.430.2.7 Hospit a .3.809838 l .8 2021-12-17 2021-12-17 Travel 1.2.840.1 1.2.262.708 7607 [id number] Methodi 00:00:00 00:00:[address] 3.430.2.7 0.2.7.3.698 Ho spita .3.645591 084.8 l .8 2021-10-27 2021-10-27 Outpatient [facility] PRIV PRIV 504 6123-20 [facility] 00:00:00 00:00:00 Black_D [id number] Medica l 2021-10-23 2021-10-23 Outpatient [facility] PRIV PRIV 504 6123-20 [facility] 04:47:00 04:47:00 Black_D 802380 Medica l 2021-10-23 2021-10-23 Aleshia [facility] 00:00:00 00:00:00 E[facility] pretty Manriquez MD: [facility]_ [address], [place] [address] , Ph. 2021-10-23 2021-10-23 Outpatient Aleshia Manriquez [facility] PRIV 880 23752-9 00:00:00 00:00:00 Enoch [id number] 2021-10-22 2021-10-22 Outpatient [facility] PRIV PRIV 504 6123-20 [facility] 10:38:00 10:38:00 Black_D 797891 Medica l 2021-10-17 2021-10-17 Office [facility], 1.2.840.1 [id number] 004 [id number] Methodi 10:20:00 12:00:57 Visit Alyssa Jha 90535.1.[address] 3.430.2.7 Hospit a .3.547937 l .8 2021-10-17 2021-10-17 Travel 1.2.840.1 1.2.700.903 3459 [id number] Methodi 00:00:00 00:00:[address] 3.430.2.7 0.2.7.3.698 Ho spita .3.457065 084.8 l .8 2021-08-31 2021-08-31 Outpatient R [facility] [id number] [facility] 11:15:00 11:15:00 ity of [facility] 2021-05-13 2021-05-13 [facility] 2100 [id number] [place] 00:00:00 00:00:00 ALYSSA [address] 2021-04-22 2021-04-22 Travel 1.2.840.1 1.2.930.948 0994 [id number] Methodi 00:00:00 00:00:[address] 3.430.2.7 0.2.7.3.698 Ho spita .3.747979 084.8 l .8 2021-04-19 2021-04-19 Telephone DONALD Goins 1.2.684.852 4656 3433 Univers 00:00:00 00:00:00 Ly Jonnie FONTENOT 350.1.13.10 ity of [facility] 4.2.7.2.686 Pastor as [id number] [facility] [address] 2021-04-17 2021-04-17 Outpatient R [facility] [id number] Univers 18:30:00 18:30:00 ity of [facility] 2021-04-17 2021-04-17 Orders Doctor BENNETT 1.2.840.114 [id number] Univers 00:00:00 00:00:00 Only Unassigned, CORIE 350.1.13.10 ity of [facility] 4.2.7.2.686 Pastor as [id number] [facility] [address] 2021-04-08 2021-04-08 Travel 1.2.840.1 1.2.781.810 6816 [id number] Methodi 00:00:00 00:00:[address] 3.430.2.7 0.2.7.3.698 Ho spita .3.459563 084.8 l .8 2021-03-29 2021-03-29 Refill Kassandra, 1.2.840.1 [id number] Methodi 00:00:00 00:00:00 Alyss[address] Jha [address]606.1.[address] 3.430.2.7 Hospit a .3.418460 l .8 2021-02-12 2021-02-12 Outpatient _[facility]_ PRIV PRIV 504 6123-20 [facility] 03:12:00 03:12:00 Black_D [id number] Medica l 2020-10-07 2020-10-07 Office Kassandra, 1.2.840.1 [id number] 902 [id number] Methodi 08:09:17 09:08:06 Visit Alyssa Mcbride50.1.[address] 3.430.2.7 Hospit a .3.449919 l .8 2020-10-07 2020-10-07 Travel 1.2.840.1 1.2.582.660 9874 [id number] Methodi 00:00:00 00:00:[address] 3.430.2.7 0.2.7.3.698 Ho spita .3.424874 084.8 l .8 2020-09-17 2020-09-17 Travel 1.2.840.1 1.2.595.484 3279 [id number] Methodi 00:00:00 00:00:[address] 3.430.2.7 0.2.7.3.698 Ho spita .3.850085 084.8 l .8 2020-05-01 2020-05-01 Office Kassandra, 1.2.840.1 [id number] Methodi 13:57:41 15:01:17 Visit Alyssa Jha 24446.1.[address] 3.430.2.7 Hospit a .3.506179 l .8 2020-05-01 2020-05-01 Travel 1.2.840.1 1.2.905.240 8267 [id number] Methodi 00:00:00 00:00:[address] 3.430.2.7 0.2.7.3.698 shreyata .3.830323 084.8 l .8 Results Test Description Test Time Test Comments Results Result Comments Source Hemoglobin A1c 2022-05-29 16:10:00 Test Item Value Reference Range Interpretation Comme nts Hemoglobin A1C (test code = 6.3 % 4.8-5.6 H Prediabetes: 5.7 - 6.4 4548-4) Diabetes: >6.4 Glycemic control for mariann lts with diabetes: <7.0 CRISTINA (test code = CRISTINA) Performed at: [facility] [id number] Director: Zain Miranda MD, Phone: [phone] Lab Interpretation (test Abnormal code = 82188-0) [facility] urine [id number] 20:08:00 Test Item Value Reference Range Interpretation Comments Creatinine, 213.6 mg/dL Not Estab. urine (mg/dL) (test code = 2161-8) Albumin, urine 6.3 ug/mL Not Estab. (test code = 13983-8) Microalbumin/cr 3 See_Comment Normal: 0 - 29 eatinine ratio Moderately (test code = increased: 30 - 300 9318-7) Severely increa sed: >300 [Automated message] The sy stem which generated this result transmit leroy reference range : 0 - 29 mg/g creat. The reference range was not used to interpret this result as normal/abnormal . CRISTINA (test code Performed at: - = CRISTINA) [facility] [id number] Director: Zain Miranda MD, Phone: [phone] [facility]inal[facility], automated with [id number] 16:10:00 Test Item Value Reference Range Interpretation Comments Specific gravity, 1.026 1.005-1.030 urine (test code = 5811-5) pH, urine (test code 5.5 5.0-7.5 = 5803-2) Color, UA (test code Yellow Yellow = 5778-6) Appearance (test code Turbid Clear A = 5767-9) WBC esterase, urine Negative Negative (test code = 5799-2) Protein, UA (test Negative Negative/Trace code = 12851-7) Glucose, urine (test Negative Negative code = 78588-0) Ketones, UA (test Negative Negative code = 2514-8) Occult blood, urine Negative Negative (test code = 5794-3) Bilirubin, UA (test Negative Negative code = 5770-3) Urobilinogen, UA 1.0 mg/dL 0.2-1.0 (test code = 03167-2) Nitrite, UA (test Negative Negative code = 5802-4) Microscopic See below: Microscopic was examination (test indicated and was code = 17964-1) performed. CRISTINA (test code = CRISTINA) Performed at: [facility] [id number] Director: Zain Miranda MD, Phone: [phone] Lab Interpretation Abnormal (test code = 07295-3) [facility] [id number] 16:10:00 Test Item Value Reference Range Interpretation Comments WBC, UA (test code None seen See_Comment [Automat ed = 5821-4) message] The system which generated this result transmit leroy reference range : 0 - 5 /hpf. The reference range was not used to interpret this result as normal/abnormal . RBC, UA (test code None seen See_Comment [Automat ed = 39962-5) message] The system which generated this result [...] code = None seen None seen /lpf 92201-1) Bacteria, UA (test None seen None seen/Few code = 5769-5) CRISTINA (test code = Performed at: CRISTINA) [facility] [address] [id number] Director: Zain Miranda MD, Phone: [phone] [facility] [id number] 14:11:00 Test Item Value Reference Range Interpretation Comments Glucose (test code 94 mg/dL 65-99 = 2345-7) BUN (test code = 16 mg/dL 6-24 3094-0) Creatinine (test 0.78 mg/dL 0.57-1.00 code = 2160-0) EGFR Non-Afr. 88 mL/min/1.73 >=59 [facility] (test code = 2775) EGFR 101 mL/min/1.73 >=59 In accorda nce with [facility] (test recommendatio ns from code = 2774) the NKF-ASN Tas k force, [facility] is in the process of updating its eG FR calculation to the 2020 CKD-EPI creatinine equa tion that estimates kidney function withou t a race variable. BUN/creatinine 21 -23 ratio (test code = 3097-3) Sodium (test code 141 mmol/L 134-144 = 2951-2) Potassium (test 4.0 mmol/L 3.5-5.2 code = 2823-3) Chloride (test 104 mmol/L 96-106 code = 2075-0) CO2 (test code = 23 mmol/L 20-29 2028-04) Calcium (test code 9.5 mg/dL 8.7-10.2 = 55550-8) Protein (test code 6.8 g/dL 6.0-8.5 = 2885-2) Albumin, S (test 3.9 g/dL 3.8-4.9 code = 1751-7) Globulin, total 2.9 g/dL 1.5-4.5 (test code = 30498-3) Albumin/globulin 1.3 1.2-2.2 ratio (test code = [...] (test code = 16 See_Comment [Automated message] 4325-6) The system [employer] generated this result transmitted ref erence range: 0 - 32 I U/L. The reference r peter was not used to interpret this result as normal/abnor mal. CRISTINA (test code = Performed at: CRISTINA) - [address] [id number] Director: Zain Miranda MD, Phone: [phone] [facility] Atlanta[facility]id [id number] 14:11:00 Test Item Value Reference Range Interpretation Comments Cholesterol (test code = 146 mg/dL 818-050 5209-3) Triglycerides (test code 73 mg/dL 0-149 = 2571-8) HDL cholesterol (test 45 mg/dL >=39 code = 2085-9) VLDL cholesterol kiana 14 mg/dL 5-40 (test code = 82890-7) LDL Chol Calc ([facility]) 87 mg/dL 0-99 (test code = 55306-1) Non-HDL cholesterol 101 mg/dL 0-129 (test code = 60324-4) CRISTINA (test code = CRISTINA) Performed at: [address] [place] [address] [id number] Director: Zain Miranda MD, Phone: [phone] [facility] AtlantaVitamin B12 [id number] 14:11:00 Test Item Value Reference Range Interpretation Comments Vitamin B12 (test code = >2000 232-1245 H 2132-9) CRISTINA (test code = CRISTINA) Performed at: [address] [place] [address] [id number] Director: Zain Miranda MD, Phone: [phone] Lab Interpretation (test Abnormal code = 42363-6) [facility] Atlanta[facility]ritin [id number] 14:11:00 Test Item Value Reference Range Interpretation Comments Ferritin level (test code 336 ng/mL 15-150 H = 2276-4) CRISTINA (test code = CRISTINA) Performed at: [address] [place] [address] [id number] Director: Zain Miranda MD, Phone: [phone] Lab Interpretation (test Abnormal code = 33775-5) [facility]2022-02-19 14:11:00 Test Item Value Reference Range Interpretation Comments Iron level (test 63 ug/dL 27-159 code = 2498-4) CRISTINA (test code = Performed at: CRISTINA) [facility] [address] [id number] Director: Zain Miranda MD, Phone: [phone] [facility] with platelet and [id number] 14:11:00 Test Item Value Reference Range Interpretation Comments WBC (test code = 6.4 See_Comment [Automated 2936-2) message] The system which generated this result transmit leroy reference range : 3.4 - 10.8 x10E3/uL. The reference range was not used to interpret this result as normal/abnormal . RBC (test code = 4.41 See_Comment [Automated 412-8) message] The system which generated this result [...] % Not Estab. granulocytes (test code = 66897-1) Immature 0.0 See_Comment [Automated granulocytes, message] The absolute (test code system w [facility] = 46945-0) generated this result transmit leroy reference range : 0.0 - 0.1 x10E3/uL. The reference range was not used to interpret this result as normal/abnormal . CRISTINA (test code = Performed at: CRISTINA) - [facility] [address] [place] [address] [id number] Director: Zain Miranda MD, Phone: [phone] [facility] C [id number] 14:11:00 Test Item Value Reference Range Interpretation Comments Hepatitis C Ab <0.1 See_Comment Negative: < 0.8 (test code = Indeterminate: 0.8 - 50785-3) 0.9 Positive: > 0.9 The CDC recomme nds that a positive HCV antibody result be followed up wit h a HCV Nucleic Aci d Amplification t est (023550). [Auto mated message] The sy stem which generated this result transmit leroy reference range : 0.0 - 0.9 s/co rati o. The reference r peter was not used to interpret this result as normal/abnormal . CRISTINA (test code = Performed at: 01 CRISTINA) - [facility] [id number] Director: Zain Miranda MD, Phone: [phone] [facility] AtlantaTHYROID CASCADE PANEL/[id number] 14:11:00 Test Item Value Reference Interpretation Comments Range TSH (test 0.715 See_Comment No apparent thy roid disorder. code = [place] not [address]5768-0) indicated. Inra re instances, Secondary Hypot hyroidism [...] at: 01 code = - [facility] CRISTINA) [address] [id number] Director: Zain Miranda MD, Phone: [phone] [facility]album[facility] / creatinine urine [id number] 00:08:00 Test Item Value Reference Range Interpretation Comments Creatinine, urine, 198.1 mg/dL Not Estab. random (test code = 2161-8) Albumin, urine 7.7 ug/mL Not Estab. (test code = 11095-4) Microalbumin/creati See_Comment [Automa leroy message] nine ratio (test The system which code = 9318-7) generated thi s result transmitted ref erence range: 0 - 29 m g/g creat. The refe rence range was not u sed to interpret this result as normal/abnor mal. CRISTINA (test code = CRISTINA) [facility] AtlantaHemoglobin [id number] 23:08:00 Test Item Value Reference Range Interpretation Comments Hemoglobin A1C (test code = 4548-4) 5.6 % 4.8-5.6 CRISTINA (test code = CRISTINA) [facility], automated with [id number] 20:10:00 Test Item Value Reference Range Interpretation Comments Specific gravity, urine (test code 1.005-1.030 = 2965-2) pH, urine (test code = 5803-2) 5.0-7.5 Color, UA (test code = 5778-6) Yellow Yellow Appearance (test code = 5767-9) Clear Clear WBC esterase, urine (test code = Negative Negative 5799-2) Protein, UA (test code = 86959-9) Negative Negative/Trace Glucose, urine (test code = Negative Negative 2349-9) Ketones, UA (test code = 2514-8) Negative Negative Occult blood, urine (test code = Negative Negative 5794-3) Bilirubin, UA (test code = 5770-3) Negative Negative Urobilinogen, UA (test code = 0.2 mg/dL 0.2-1.0 63440-4) Nitrite, UA (test code = 5802-4) Negative Negative Microscopic examination (test code See below: = 64219-3) CRISTINA (test code = CRISTINA) [facility] [id number] 20:10:00 Test Item Value Reference Range Interpretation Comments WBC, UA (test code = 0-5 See_Comment [Autom ated message] 5821-4) The system [employer] generated this result transmitted ref erence range: 0 - 5 /h pf. The reference range was not used to interpr et this result as normal/abnormal . RBC, UA (test code = 0-2 See_Comment [Autom ated message] 05469-8) The system [employer] generated this result transmitted ref erence range: [...] = 5769-5) CRISTINA (test code = CRISTINA) [facility] [id number] 07:06:00 Test Item Value Reference Range Interpretation Comments Glucose (test code = 103 mg/dL 65-99 H 2345-7) BUN (test code = 13 mg/dL 6-24 3094-0) Creatinine (test code 0.78 mg/dL 0.57-1.00 = 2160-0) EGFR Non-Afr. 88 mL/min/1.73 >59 [facility] (test code = 2775) EGFR 102 mL/min/1.73 >59 (test code = 2774) BUN/creatinine ratio 9-23 (test code = 3097-3) Sodium (test code = 141 mmol/L 530-919 9126-2) Potassium (test code 4.5 mmol/L 3.5-5.2 = 2823-3) Chloride (test code = 104 mmol/L 96-106 2075-0) CO2 (test code = 26 mmol/L 20-29 8-9) Calcium (test code = 9.4 mg/dL 8.7-10.2 67464-7) Protein (test code = 6.8 g/dL 6.0-8.5 2885-2) Albumin, S (test code 4.0 g/dL 3.8-4.9 = 1751-7) Globulin, total (test 2.8 g/dL 1.5-4.5 code = 04863-7) Albumin/globulin 1.2-2.2 ratio (test code = 1759-0) [...] CRISTINA) Lab Interpretation Abnormal (test code = 99452-4) [facility] Atlanta[facility]id [id number] 07:06:00 Test Item Value Reference Range Interpretation Comments Cholesterol (test code = 2093-3) 121 mg/dL 100-199 Triglycerides (test code = 2571-8) 44 mg/dL 0-149 HDL cholesterol (test code = 44 mg/dL >39 2085-9) VLDL cholesterol kiana (test code = 11 mg/dL 5-40 16985-0) LDL Chol Calc (NIH) (test code = 66 mg/dL 0-99 97870-3) Non-HDL cholesterol (test code = 77 mg/dL 0-129 85624-5) CRISTINA (test code = CRISTINA) [facility] Atlanta[facility] with platelet and [id number] 06:06:00 Test Item Value Reference Range Interpretation Comments WBC (test code = 6690-2) See_Comment [A utomated message] The system [employer] generated this result transmit leroy reference range : 3.4 - 10.8 x10E3/uL . The reference range was not used to interpret this result as normal/abnormal . RBC (test code = 789-8) See_Comment [Au tomated message] The system [employer] generated this result transmit leroy reference range [...] ated message] code = 777-3) The system [facility] generated this result transmit leroy reference range [...] 0 % Not Estab. (test code = 56270-8) Immature grans (abs) See_Comment [Autom ated message] (test code = 12858-4) The sy stem which generated this result transmit leroy reference range : 0.0 - 0.1 x10E3/uL. The reference range was not used to interpret this result as normal/abnormal . CRISTINA (test code = CRISTINA) Lab Interpretation (test Abnormal code = 37519-2) [facility]
[2022-12-25 02:40] LABS: Protime INR 1.05
[2022-12-25 02:42] LABS: Hematocrit 36.7 % (36.0-45.0); Lymphocytes % 38.7 % (15.3-44.8); MCV 89.7 fL (80-100); MPV 8.5 fL (7.6-11.3)
[2022-12-25] MEDS ORDERED: AMLODIPINE 10 MG TAB ONE (02:43)
[2022-12-25] MEDS ORDERED: NA CHLORIDE 0.9% 1,000 ML ONE (02:43)
[2022-12-25] MEDS ORDERED: MORPHINE 4 MG/ML SYR ONE (02:43)
[2022-12-25] MEDS ORDERED: ONDANSETRON 4 MG/2 ML VIAL ONE (02:43)
[2022-12-25 02:53] LABS: Albumin 3.2 g/dL (3.4-5.0); Bilirubin Direct 0.1 mg/dL (0-0.2); Bilirubin Total 0.5 mg/dL (0.2-1.0); Potassium 3.5 mEq/L (3.5-5.1); Protein, Total 7.6 g/dL (6.4-8.2); Troponin High Sensitivity 4.1 pg/mL (<58.9)
--- NOTE | 2022-12-25 03:18 | EDPHYS ---
Physician Documentation [facility] Name: Iliana Redding Age: 52 yrs Sex: Female : 1970 Arrival Date: 12/25/2022 Time: 01:53 Bed 13 Private MD: ED Physician Camron Verdugo HPI: 12/25 02:28 This 52 yrs old Black Female presents to ER via Ambulatory with complaints of Chest marry Pain, Arm Pain. 02:28 The patient or guardian reports chest pain that is located primarily in the anterior [facility] chest wall, bilaterally. Onset: just prior to arrival, this morning. The pain radiates to the right arm. Associated signs and symptoms: The patient has no apparent associated signs or symptoms. The chest pain is described as a heaviness. Duration: The patient or guardian reports a single episode, that is still ongoing. Severity of pain: At its worst the pain was mild moderate in the emergency department the pain is unchanged. The patient has not experienced similar symptoms in the past. Historical: - Allergies: 02:09 Aspirin; kl - Home Meds: 02:09 Lisinopril Oral [Active]; Hydrochlorothiazide Oral [Active]; kl - PMHx: 02:09 Hypertensive disorder; kl - PSHx: 02:09 Cholecystectomy; Tuballigation; kl - Immunization history:: Adult Immunizations up to date. - Family history:: not pertinent. ROS: 02:28 Constitutional: Negative for fever, chills, and weight loss, Eyes: Negative for injury, marry pain, redness, and discharge, ENT: Negative for injury, pain, and discharge, Neck: Negative for injury, pain, and swelling, Respiratory: Negative for shortness of breath, cough, wheezing, and pleuritic chest pain, Abdomen/GI: Negative for abdominal pain, nausea, vomiting, diarrhea, and constipation, Back: Negative for injury and pain, : Negative for injury, bleeding, discharge, and swelling, MS/Extremity: Negative for injury and deformity, Skin: Negative for injury, rash, and discoloration, Neuro: Negative for headache, weakness, numbness, tingling, and seizure, Psych: Negative for depression, anxiety, suicide ideation, homicidal ideation, and hallucinations, Allergy/Immunology: Negative for hives, rash, and allergies, Endocrine: Negative for neck swelling, polydipsia, polyuria, polyphagia, and marked weight changes, Hematologic/Lymphatic: Negative for swollen nodes, abnormal bleeding, and unusual bruising. 02:28 Cardiovascular: Positive for chest pain, of the chest. Exam: 02:28 Constitutional: This is a well developed, well nourished patient who is awake, alert, marry and in no acute distress. Head/Face: Normocephalic, atraumatic. Eyes: Pupils equal round and reactive to light, extra-ocular motions intact. Lids and lashes normal. Conjunctiva and sclera are non-icteric and not injected. Cornea within normal limits. Periorbital areas with no swelling, redness, or edema. ENT: Nares patent. No nasal discharge, no septal abnormalities noted. Tympanic membranes are normal and external auditory canals are clear. Oropharynx with no redness, swelling, or masses, exudates, or evidence of obstruction, uvula midline. Mucous membranes moist. Neck: Trachea midline, no thyromegaly or masses palpated, and no cervical lymphadenopathy. Supple, full range of motion without nuchal rigidity, or vertebral point tenderness. No Meningismus. Chest/axilla: Normal chest wall appearance and motion. Nontender with no deformity. No lesions are appreciated. Cardiovascular: Regular rate and rhythm with a normal S1 and S2. No gallops, murmurs, or rubs. Normal PMI, no JVD. No pulse deficits. Respiratory: Lungs have equal breath sounds bilaterally, clear to auscultation and percussion. No rales, rhonchi or wheezes noted. No increased work of breathing, no retractions or nasal flaring. Abdomen/GI: Soft, non-tender, with normal bowel sounds. No distension or tympany. No guarding or rebound. No evidence of tenderness throughout. Back: No spinal tenderness. No costovertebral tenderness. Full range of motion. Skin: Warm, dry with normal turgor. Normal color with no rashes, no lesions, and no evidence of cellulitis. MS/ Extremity: Pulses equal, no cyanosis. Neurovascular intact. Full, normal range of motion. Neuro: Awake and alert, GCS 15, oriented to person, place, time, and situation. Cranial nerves II-XII grossly intact. Motor strength 5/5 in all extremities. Sensory grossly intact. Cerebellar exam normal. Normal gait. Psych: Awake, alert, with orientation to person, place and time. Behavior, mood, and affect are within normal limits. 02:28 ECG was reviewed by the Attending Physician. 02:28 Musculoskeletal/extremity: DVT Exam: No signs of deep vein thrombosis. no pain, no swelling, no tenderness, negative Homans' sign noted on exam, no appreciated bluish discoloration, no erythema, no increased warmth. Vital Signs: 02:08 BP 177 / 115; Pulse 91; Resp 20; Temp 98.1(TE); Pulse Ox 99% on R/A; Weight 132.9 kg kl (M); Height 5 ft. 3 in. ; Pain 10/10; 03:01 BP 135 / 91; Pulse 93; Resp 15; Pulse Ox 94% on R/A; aa9 02:08 Body Mass Index 51.90 (132.90 kg, 160.02 cm) kl 02:08 Pain Scale: Adult kl MDM: 02:09 Patient medically screened. marry 02:31 Differential diagnosis: abnormal EKG, acute myocardial infarction, acute pericarditis, marry anxiety, cholecystitis, Cholelithiasis hiatal hernia, pancreatitis, peptic ulcer disease, pneumonia, stable angina, unstable angina. HEART Score: History: Moderately Suspicious (1), ECG: Non specific repolarization disturbance / LBTB / PM (1), Age: > 45 and < 65 years (1), Risk Factors: > or = 3 Risk factors for atherosclerotic disease (2), [Hypertension] [+ Family HX] [Obesity] Troponin: < or = 1 x Normal Limit (0). The patient was not given aspirin in the Emergency Department. Not indicated due to patient's past medical history. DOROTHY Risk Score: 1 - Three or more CAD risk factors, TOTAL SCORE = 1. Data reviewed: vital signs, nurses notes, lab test result(s), EKG, radiologic studies, plain films. Consideration of Admission/Observation Patient was admitted/placed on observation. Escalation of care including admission/observation considered. I considered the following discharge prescriptions or medication management in the emergency department Medications were administered in the Emergency Department. See MAR. Independent interpretation of the following test(s) in the Emergency Department EKG: See my EKG interpretation above. Test considered but Not performed: CT: ct chest tad. Care significantly affected by the following chronic conditions: Hypertension, Obesity. Counseling: I had a detailed discussion with the patient and/or guardian regarding: the historical points, exam findings, and any diagnostic results supporting the discharge/admit diagnosis, the presence of at least one elevated blood pressure reading (>120/80) during this emergency department visit, lab results, radiology results, the need for further work-up and treatment in the hospital. 12/25 02:10 Order name: Basic Metabolic Panel; Complete Time: 03:13 [facility] 12/25 02:10 Order name: CBC with Diff; Complete Time: 03:13 [facility] 12/25 02:10 Order name: LFT's; Complete Time: 03:13 [facility] 12/25 02:10 Order name: Magnesium; Complete Time: 03:13 [facility] 12/25 02:10 Order name: NT PRO-BNP; Complete Time: 03:13 [facility] 12/25 02:10 Order name: PT-INR; Complete Time: 03:13 [facility] 12/25 02:10 Order name: Troponin HS; Complete Time: 03:13 [facility] 12/25 02:10 Order name: Lipase; Complete Time: 03:13 [facility] 12/25 03:28 Order name: DD la1 12/25 03:33 Order name: Urinalysis w/ reflexes [facility] 12/25 03:33 Order name: Basic Metabolic Panel [facility] 12/25 03:34 Order name: Basic Metabolic Panel [facility] 12/25 03:34 Order name: Lipid Profile [facility] 12/25 03:34 Order name: Lipid Profile [facility] 12/25 03:34 Order name: Troponin High Sensitivity [facility] 12/25 03:34 Order name: Troponin High Sensitivity [facility] 12/25 03:34 Order name: Troponin High Sensitivity [facility] 12/25 03:34 Order name: Hemoglobin A1c [facility] 12/25 03:34 Order name: T4 Free [facility] 12/25 03:34 Order name: Thyroid Stimulating Hormone [facility] 12/25 02:10 Order name: XRAY Chest (1 view) [facility] 12/25 02:10 Order name: EKG; Complete Time: 02:11 [facility] 12/25 03:33 Order name: Heart Healthy [facility] 12/25 02:10 Order name: Cardiac monitoring; Complete Time: 02:15 [facility] 12/25 02:10 Order name: EKG - Nurse/Tech; Complete Time: 02:15 [facility] 12/25 02:10 Order name: IV Saline Lock; Complete Time: 02:23 [facility] 12/25 02:10 Order name: Labs collected and sent; Complete Time: marry 12/25 02:10 Order name: O2 Per Protocol; Complete Time: marry 12/25 02:10 Order name: O2 Sat Monitoring; Complete Time: [facility] EC:28 Rate is 77 beats/min. Rhythm is regular. QRS [place] is Normal. MD interval is normal. QRS marry interval is normal. QT interval is normal. No Q waves. T waves are Normal. No ST changes noted. Clinical impression: NSR w/ Non-specific ST/T Changes and No evidence of ischemia. Interpreted by me. Administered Medications: 02:12 Not Given (pt allergicc): Aspirin PO Chewable Tablet 162 mg PO once kl 03:00 Drug: Norvasc PO 10 mg Route: PO; aa9 03:01 Drug: NS 0.9% IV 1000 ml Route: IV; Rate: 125 ml/hr; Site: right antecubital; aa9 03:01 Drug: morphine IVP or IV 4 mg Route: IVP; Infused Over: 4 mins; Site: right antecubital;aa9 03:01 Drug: Ondansetron IVP 4 mg Route: IVP; Site: right antecubital; aa9 03:42 Drug: GI Cocktail without - (Maalox PO Suspension 30 ml, Lidocaine Mucous aa9 Membrane Liquid 2 % 15 ml) Route: PO; Disposition Summary: 12/25/22 03:17 Hospitalization Ordered Hospitalization Status: Observation marry Provider: Tony Echeverria cha Condition: Stable marry Problem: new marry Symptoms: have improved marry Bed/Room Type: Standard marry Location: Telemetry/MedSurg (observation)(12/25/22 16:31) jl7 Room Assignment: 405(12/25/22 16:31) jl7 Diagnosis - Chest pain, unspecified marry - Essential (primary) hypertension marry - Obesity, unspecified marry Forms: - Medication Reconciliation Form marry - SBAR form marry Signatures: Dispatcher [employer] Paula Vázquez RN RN kl Anderson, Corey, MD MD cha Attema, Lee, COIN MACHINE SERVICER REPAIRER-C COIN MACHINE SERVICER REPAIRER-Cla1 Rubina Dooley RN RN cg Leal, Jahala, RN RN jl7 Franca Morales RN RN aa9 Corrections: (The following items were deleted from the chart) 03:36 03:17 Telemetry/MedSurg (observation) marry cg 03:36 03:17 [facility] cg 16: 03:36 [facility] cg jl7 16: 03:[facility] jl[facility]
--- NOTE | 2022-12-25 03:18 | ER ---
Nurse's Notes [facility] Name: Iliana Redding Age: 52 yrs Sex: Female : 1970 Arrival Date: 12/25/2022 Time: 01:53 Bed 13 Private MD: Diagnosis: Chest pain, unspecified;Essential (primary) hypertension;Obesity, unspecified Presentation: 12/25 02:08 Chief complaint: Patient states: MID STERNAL CHEST PAIN WITH RIGHT ARM PAIN BEGAN AT kl 930 PM WHILE AT REST REPORTS ORTHOPNEA. Coronavirus screen: Vaccine status: Patient reports receiving the 2nd dose of the covid vaccine. Ebola Screen: Patient negative for fever greater than or equal to 101.5 degrees Fahrenheit, and additional compatible Ebola Virus Disease symptoms. Initial Sepsis Screen: Does the patient meet any 2 criteria? No. Patient's initial sepsis screen is negative. Does the patient have a suspected source of infection? No. Patient's initial sepsis screen is negative. Risk Assessment: Do you want to hurt yourself or someone else? Patient reports no desire to harm self or others. Onset of symptoms was December 24, 2022 at 21:30. 02:08 Method Of Arrival: Ambulatory 02:08 Acuity: OCHOA 2 kl Triage Assessment: 02:11 General: Appears uncomfortable, obese, Behavior is calm, cooperative. Pain: Complains kl of pain in mid-sternal area Pain radiates to right arm Pain currently is 10 out of 10 on a pain scale. Aggravated by breathing. Cardiovascular: Reports chest pain, shortness of breath, Rhythm is sinus rhythm. Historical: - Allergies: 02:09 Aspirin; kl - Home Meds: 02:09 Lisinopril Oral [Active]; Hydrochlorothiazide Oral [Active]; kl - PMHx: 02:09 Hypertensive disorder; kl - PSHx: 02:09 Cholecystectomy; Tuballigation; kl - Immunization history:: Adult Immunizations up to date. - Family history:: not pertinent. Assessment: 03:01 Reassessment: Patient appears in no apparent distress at this time. Patient and/or aa9 family updated on plan of care and expected duration. Pain level reassessed. Patient is alert, oriented x 3, equal unlabored respirations, skin warm/dry/pink. Vital Signs: 02:08 BP 177 / 115; Pulse 91; Resp 20; Temp 98.1(TE); Pulse Ox 99% on R/A; Weight 132.9 kg kl (M); Height 5 ft. 3 in. ; Pain 10/10; 03:01 BP 135 / 91; Pulse 93; Resp 15; Pulse Ox 94% on R/A; aa9 02:08 Body Mass Index 51.90 (132.90 kg, 160.02 cm) 02:08 Pain Scale: Adult ED Course: 01:58 Patient arrived in ED. ja2 02:05 Franca Morales, RN is Primary Nurse. aa9 02:09 Camron Verdugo MD is Attending Physician. marry 02:09 Triage completed. kl 02:23 Inserted saline lock: 20 gauge in right antecubital area, using aseptic technique. aa9 Blood collected. Patient maintains SpO2 saturation greater than 95% on room air. 02:23 Patient has correct armband on for positive identification. Placed in gown. Call light aa9 in reach. Side rails up X2. Adult w/ patient. Client placed on continuous cardiac and pulse oximetry monitoring. NIBP monitoring applied. 02:46 XRAY Chest (1 view) In Process Unspecified. EDMS 03:15 Antonio Goodrich MD is Hospitalizing Provider. marry 03:16 Tony Echeverria MD is Hospitalizing Provider. marry 03:39 DD Sent. 1 03:53 No provider procedures requiring assistance completed. Patient admitted, IV remains in aa9 place. 16:02 Primary Nurse role handed off by Franca Morales RN 16:02 Sandi Anthony, JESS is Primary Nurse. hb Administered Medications: 02:12 Not Given (pt allergicc): Aspirin PO Chewable Tablet 162 mg PO once 03:00 Drug: Norvasc PO 10 mg Route: PO; aa9 03:01 Drug: NS 0.9% IV 1000 ml Route: IV; Rate: 125 ml/hr; Site: right antecubital; aa9 03:01 Drug: morphine IVP or IV 4 mg Route: IVP; Infused Over: 4 mins; Site: right antecubital;aa9 03:01 Drug: Ondansetron IVP 4 mg Route: IVP; Site: right antecubital; aa9 03:42 Drug: GI Cocktail without - (Maalox PO Suspension 30 ml, Lidocaine Mucous aa9 Membrane Liquid 2 % 15 ml) Route: PO; Outcome: 03:17 Decision to Hospitalize by Provider. marry 18:13 Patient left the ED. ld1 Signatures: Dispatcher [employer] EDPaula Pierce, RN Camron Wang MD MD cha Baxter, Heather, RN RN hb Sims, Lauren, RN RN ld1 Shira Bacon Aylin, RN RN aa9 Kayode Lai [facility]
[2022-12-25] MEDS ORDERED: ONDANSETRON 4 MG/2 ML VIAL IV PRN (03:29)
--- NOTE | 2022-12-25 03:37 | P.HP ---
Certification for Inpatient Patient admitted to: Observation With expected LOS: <2 Midnights Patient will require the following post-hospital care: None Practitioner: I am a practitioner with admitting privileges, knowledge of patient current condition, hospital course, and medical plan of care. Services: Services provided to patient in accordance with Admission requirements found in Title 42 Section 412.3 of the Code of Federal Regulations <Luis Eduardo Camp - Last Filed: 12/25/22 03:34> Patient History Date of Service: 12/25/22 Reason for admission: Chest pain History of Present Illness: 52-year-old female with history of hypertension, obesity presents to the emergency department with chief complaint of chest pain. She reports her pain began while resting on the couch she was described as tightness, worsened with deep breath and is persistent, nonradiating. She denies any associated shortness of breath, diaphoresis, nausea or vomiting. Her pain did begin approximately 1 hour after eating [employer], she has had a previous cholecystectomy. She is allergic to aspirin therefore she did not receive it in the emergency department her EKG was negative for STEMI criteria initial has not to be troponin 4.1 glucose 151. ED provider wishes to admit under observation for ACS rule out. - Past Medical/Surgical History -: HTN -: HLD -: Cholecystectomy -: Tubal ligation Psychosocial/ Personal History: Patient lives at home with her - Family History Family History: Reviewed- Non-Contributory - Social History Alcohol use: No CD- Drugs: No Place of Residence: Home <Luis Eduardo Camp - Last Filed: 12/25/22 03:34> Date of Service: 12/25/22 <Tony Echeverria - Last Filed: 12/25/22 12:40> Allergies aspirin Allergy (Verified 09/18/19 18:27) Anaphylaxis cheese Allergy (Verified 09/19/19 11:08) Anaphylaxis Home Medications: Atorvastatin Calcium [Lipitor*] 20 mg PO BEDTIME 09/18/19 Citalopram Hydrobromide [Citalopram HBr] 20 mg PO DAILY 09/18/19 Lisinopril [Zestril] 20 mg PO DAILY 09/18/19 Review of Systems 10-point ROS is otherwise unremarkable Cardiovascular: Chest Pain <Luis Eduardo Camp - Last Filed: 12/25/22 03:34> Physical Examination - Physical Exam General: Alert, In no apparent distress, Oriented x3 HEENT: Atraumatic, PERRLA, Mucous membr. moist/pink, EOMI, Sclerae nonicteric Neck: Supple, 2+ carotid pulse no bruit, No LAD, Without JVD or thyroid abnormality Respiratory: Clear to auscultation bilaterally, Normal air movement Cardiovascular: Regular rate/rhythm, Normal S1 S2 Gastrointestinal: Normal bowel sounds, No tenderness Musculoskeletal: No tenderness Integumentary: No rashes Neurological: Normal speech, Normal strength at 5/5 x4 extr, Normal tone, Normal affect - Studies Laboratory Data (last 24 hrs) 12/25/22 02:20: PT 11.5, INR 1.05 12/25/22 02:20: WBC 7.90, Hgb 12.0, Hct 36.7, Plt Count 254 12/25/22 02:20: Sodium 137, Potassium 3.5, BUN 19 H, Creatinine 0.93, Glucose 151 H, Magnesium 2.0, Total Bilirubin 0.5, AST 8 L, ALT 19, Alkaline Phosphatase 122 H, Lipase 24 <Luis Eduardo Camp - Last Filed: 12/25/22 03:34> - Studies Laboratory Data (last 24 hrs) 12/25/22 02:20: PT 11.5, INR 1.05 12/25/22 02:20: WBC 7.90, Hgb 12.0, Hct 36.7, Plt Count 254 12/25/22 02:20: Sodium 137, Potassium 3.5, BUN 19 H, Creatinine 0.93, Glucose 151 H, Magnesium 2.0, Total Bilirubin 0.5, AST 8 L, ALT 19, Alkaline Phosphatase 122 H, Lipase 24 <Tony Echeverria - Last Filed: 12/25/22 12:40> Assessment and Plan - Plan Assessment: Chest pain rule out ACS Hypertension Hyperlipidemia Obesity Plan: Chest pain rule out ACS Allergic to aspirin, will not give. Trend troponin, monitor on telemetry, cardiology consult in place. Continue statin. We will try GI cocktail as symptoms may be related to reflux/GERD. D-dimer added on to rule out PE, low probability. Hypertension Continue home medications Hyperlipidemia Continue home medications Obesity Counseled on need for lifestyle changes. DVT PPX: Lovenox Code status: Full Discharge Plan: Home Plan to discharge in: 24 Hours - Advance Directives Does patient have a Living Will: No Does patient have a Durable POA for Healthcare: No - Code Status/Comfort Care Code Status Assessed: Yes (Full code) Critical Care: No Time Spent Managing Pts Care (In Minutes): 55 <Luis Eduardo Camp - Last Filed: 12/25/22 03:34> Physician Review: Patient Assessed, Agree with Above Assessment and Plan <Tony Echeverria - Last Filed: 12/25/22 12:40>
[2022-12-25] MEDS ORDERED: LIDOCAINE VISCOUS 2% SOLN 15 ML UDC ONE (03:42)
[2022-12-25] MEDS ORDERED: MAGNES/ALUMIN/SIMET 30ML UCUP ONE (03:42)
[2022-12-25] MEDS ORDERED: ENOXAPARIN 40 MG/0.4 ML SQ ONE (08:47)
[2022-12-25] MEDS: ENOXAPARIN 40 MG/0.4 ML SQ SCH (08:55)
[2022-12-25 09:01] LABS: Thyroid Stimulating Hormone 0.884 uIU/mL (0.358-3.740); Troponin High Sensitivity 3.1 pg/mL (<58.9)
[2022-12-25 12:26] LABS: Specific Gravity 1.011 (1.005-1.030); Urine Bacteria None Seen /HPF (<20); Urine Bilirubin NEGATIVE (Negative); Urine Blood Trace (Negative); Urine Clarity Clear (Clear); Urine Color Light-Yellow (Yellow); Urine Glucose NEGATIVE (Negative); Urine Protein NEGATIVE (Negative); Urine RBC <5 /HPF (None Seen); Urine Urobilinogen 1+ (Normal); Urine pH 6.5 (5.0-7.0)
[2022-12-25] MEDS ORDERED: ACETAMINOPHEN 325 MG TABLET PO PRN (17:14)
[2022-12-25 18:25] VITALS: O2SAT 94
--- NOTE | 2022-12-25 20:11 | RAD REPORT ---
EXAM DESCRIPTION: CT - Thorax Wo Con - 12/25/2022 8:03 pm CLINICAL HISTORY: Chest pain COMPARISON: none TECHNIQUE: Computed axial tomography of the chest was obtained. Contrast was not requested. All CT scans are performed using dose optimization technique as appropriate and may include automated exposure control or mA/KV adjustment according to patient size. FINDINGS: The evaluation of mediastinum, silvia and vessels is limited secondary to lack of IV contras t administration. Area of subsegmental atelectasis in each lung base. Otherwise lungs are clear. No mediastinal or hilar lymphadenopathy is seen. A pleural effusion is not present. No pericardial effusion IMPRESSION: Area of subsegmental atelectasis in each lung base.
[2022-12-25] MEDS ORDERED: ATORVASTATIN 40 MG TAB PO SCH (21:00)
--- NOTE | 2022-12-25 22:22 | CON ---
Date of Consultation: 12/25/2022 Reason For Consultation: Atypical chest pain. History Of Present Illness: Ms. Redding is 52. I performed a heart catheterization on Ms. Redding i n 2019 and it was perfectly normal. She has a history of obesity, hypertension, dyslipidemia. She r ecently had hydrochlorothiazide added to her regimen because of poorly controlled blood pressure. Sh maricel also takes Zestril and Lipitor. She came in with left-sided sharp stabbing chest pain. It was wor se when she took a deep breath. She sees a primary care physician in [place]. No nausea, vomiti ng, diaphoresis, PND, orthopnea, pedal edema, palpitations, or syncope. Past Medical History: As stated above. Allergies: TO ASPIRIN AND CHEESE. Medications: Listed earlier. Review of Systems: Negative. Social History: Negative. Family History: Negative. Physical Examination: Vital Signs: Weight was 292 pounds. Vital signs were otherwise stable. Afebrile. HEENT: Negative. Neck: Supple with no bruit. Chest: Clear. Cardiac: Normal. Abdomen: Obese, but benign. Extremities: Revealed no clubbing, cyanosis, or edema. Diagnostic Data: All normal except for a glucose of 150. Impression And Plan: Atypical chest pain, noncardiac in nature, most likely pleuritic. Had a normal catheterization 2 years ago. She has had a normal echo and normal stress test in the past. I think her blood pressure may be an issue. Her sugar is borderline controlled. She is not a diabetic, but she needs to follow up with hemoglobin A1c. We need to continue her cholesterol medicine and her bl ood pressure medicine, and I am comfortable with her going home without any cardiac workup knowing he r previous history. Case was discussed with Dr. Echeverria. JUDY/CHUCKY Voice ID: [id number] Report ID: [id number]
[2022-12-26 03:49] VITALS: BMI 51.9
[2022-12-26 05:07] LABS: Potassium 3.5 mEq/L (3.5-5.1)
--- NOTE | 2022-12-26 08:26 | P.DS ---
Admission Date: 12/25/22 Discharge Date: 12/26/22 Disposition: ROUTINE DISCHARGE Discharge Condition: GOOD Reason for Admission: Chest pain Consultations: 1. Cardiology Hospital Course: DIAGNOSES: # Chest pain, noncardiac - likely Pleuritic # Hypertension # Hyperlipidemia # Morbid Obesity - BMI 51.9 kg/m2 HOSPITAL COURSE: Ms. Iliana Redding is a pleasant 52 year old female with a past medical history significant for hypertension, hyperlipidemia, and morbid obesity who was admitted to the [facility] on 12/25/2022 for chest pain. She was admitted to the Medicine service. Her EKG was without STEMI criteria. Her troponin trend was 4.1 -> 3.1 -> <3.0. Her d-dimer was 300. Her chest x-ray revealed, "no acute cardiopulmonary disease seen." Her CT chest revealed, "area of subsegmental atelectasis in each lung base." Cardiology was consulted and she was evaluated by Dr. Corrigan. Per Dr. Corrigan, she had a normal left heart catheterization about 2 years ago. He has cleared her for discharge with outpatient follow-up. On 12/26/2022, she was seen on morning rounds and deemed medically stable for discharge. She was discharged with instructions to schedule follow-up appointments with her PCP (Dr. Singleton) and with Cardiology (Dr. Corrigan). She was given the opportunity to ask questions and reported no further questions. Furthermore, all questions were answered to the best of my ability. A copy of this discharge summary will be sent to the above providers to facilitate continuity of care. Today, I personally spent 25 minutes on her case, of which greater than 50% of the time was spent in patient education, counseling, and coordination of care as described above. Vital Signs/Physical Exam: Temp Pulse Resp BP Pulse Ox 98.2 F 98 H 16 98/63 93 12/26/22 05:49 12/26/22 05:49 12/26/22 05:49 12/26/22 05:49 12/26/22 05:49 General: Alert, In no apparent distress, Oriented x3 HEENT: Atraumatic, Mucous membr. moist/pink, Sclerae nonicteric Neck: JVD not distended Respiratory: Clear to auscultation bilaterally, Normal air movement Cardiovascular: No edema, Regular rate/rhythm, Normal S1 S2, No gallops, No rubs, No murmurs Gastrointestinal: Normal bowel sounds, Soft and benign, Non-distended, No tenderness, No rebound, No guarding Musculoskeletal: No clubbing Integumentary: No rashes Neurological: Normal speech, Normal affect Laboratory Data at Discharge: WBC 7.90 thou/uL (4.3-10.9) 12/25/22 02:20 Hgb 12.0 g/dL (12.0-15.0) 12/25/22 02:20 Hct 36.7 % (36.0-45.0) 12/25/22 02:20 Plt Count 254 thou/uL (152-406) 12/25/22 02:20 PT 11.5 SECONDS (9.5-12.5) 12/25/22 02:20 INR 1.05 12/25/22 02:20 Sodium 138 mEq/L (136-145) 12/26/22 04:01 Potassium 3.5 mEq/L (3.5-5.1) 12/26/22 04:01 BUN 13 mg/dL (7-18) 12/26/22 04:01 Creatinine 0.92 mg/dL (0.55-1.02) 12/26/22 04:01 Glucose 139 mg/dL (74-106) H 12/26/22 04:01 Magnesium 2.0 mg/dL (1.6-2.4) 12/25/22 02:20 Total Bilirubin 0.5 mg/dL (0.2-1.0) 12/25/22 02:20 AST 8 U/L (15-37) L 12/25/22 02:20 ALT 19 U/L (13-56) 12/25/22 02:20 Alkaline Phosphatase 122 U/L (45-117) H 12/25/22 02:20 Triglycerides 49 mg/dL (<150) 12/25/22 08:26 Cholesterol 158 mg/dL (<200) 12/25/22 08:26 HDL Cholesterol 46 mg/dL (40-60) 12/25/22 08:26 Cholesterol/HDL Ratio 3.43 12/25/22 08:26 Lipase 24 U/L (13-75) 12/25/22 02:20 Home Medications: Atorvastatin Calcium [Lipitor*] 20 mg PO BEDTIME 09/18/19 Citalopram Hydrobromide [Citalopram HBr] 20 mg PO DAILY 09/18/19 Lisinopril [Zestril] 20 mg PO DAILY 09/18/19 Physician Discharge Instructions: 1. Please call and schedule a follow-up appointment with your PCP (Dr. Singleton) in 3-5 days 2. Please call and schedule a follow-up appointment with cardiology (Dr. Corrigan) in 5-7 days - He will schedule you for an echocardiogram (heart ultrasound) at this appointment Followup: Iain Corrigan MD [ACTIVE - CAN ADMIT] - Alyssa Singleton MD [OUTSIDE PHYSICIAN] - Time spent managing pt's care (in minutes): 25
[2022-12-26 08:46] LABS: Absolute Lymphocytes (CBC) 3.2 K/uL (0.7-4.9); Hematocrit 35.3 % (36.0-45.0); Lymphocytes % 34.4 % (15.3-44.8); MCV 90.6 fL (80-100); MPV 8.9 fL (7.6-11.3)
[2022-12-26] MEDS: ENOXAPARIN 40 MG/0.4 ML SQ SCH (08:48)
[2022-12-26 09:12] VITALS: BP 110/61; TEMP 98.7
[2022-12-26 09:48] LABS: Platelet Estimate ADEQ; White Blood Cell Scan OK (OK)
[2022-12-26 09:49] LABS: Blood Morphology Comment NOT SEEN (NOT SEEN)
--- NOTE | 2022-12-26 14:16 | RAD REPORT ---
EXAM DESCRIPTION: RAD - Chest Single View - 12/25/2022 2:44 am CLINICAL HISTORY: 52 years, Female, CHEST PAIN COMPARISON: None FINDINGS: Single view of the chest was obtained portable. No prior films are available for compariso n. The lung volume is slightly decreased. External EKG leads within the [id number] limits diagnosi s. The cardiomediastinal silhouette demonstrate to be unremarkable. The heart is not enlarged. The th oracic aorta is mildly tortuous. The pulmonary vasculature is normal distribution. Costophrenic angle s are sharp. No areas of consolidation or masses are seen. The rest of the soft tissue and bony s tructures demonstrate to be unremarkable. IMPRESSION: No acute cardiopulmonary disease seen. Electronically signed by: Guzman Brar MD 12/25/2022 2:55 AM CDT Due to temporary technical issues with the PACS/Fluency reporting system, reports are being signed by the in house radiologists without review as a courtesy to insure prompt reporting. The interpreting radiologist is fully responsible for the content of the report.
--- NOTE | 2022-12-26 15:22 | EKG ---
Test Date: 2022-12-25 Test Time: 02:11:01 [employer] Con[employer] Helper: QUOC MEASUREMENT RESULTS: Intervals: Rate: 77 NH: 168 QRSD: 76 QT: 398 QTc: 450 Alvarado: P: 54 NH: 168 QRS: 2 T: 28 INTERPRETIVE STATEMENTS: Normal sinus rhythm Nonspecific T wave abnormality Abnormal ECG Compared to ECG 10/02/2022 10:44:16 Left ventricular hypertrophy no longer present T-wave abnormality still present Electronically Signed On 12-26-22 15:21:24 CDT by Fernando Niño
== END 2022-12-26 10:45 | disposition home or self-care (01) ==
LOC: ER 01:53 → ERHOLD 03:29 → 4TH 17:53
PROVIDERS: ADMIT Internal Medicine; ATTEND Internal Medicine
DX: R07.9 Chest pain, unspecified (principal); I10 Essential (primary) hypertension; E66.01 Morbid (severe) obesity due to excess calories; Z68.43 Body mass index [BMI] 50.0-59.9, adult; Z71.3 Dietary counseling and surveillance; E78.5 Hyperlipidemia, unspecified; Z20.822 Contact with and (suspected) exposure to COVID-19
CPT/HCPCS: 93005; 85025 ×2; 81001; 80048 ×2; 36415 ×2; 83735; 85610; 80061; 85379; 80076; 84443; 83036; 84484 ×3; 84439; 83690; 83880; 87804 ×2; 71250; 71045; U0003; J1650 ×2; J2405; J7030; G0378 ×5; 96374; 96375; 99285

== ENCOUNTER 2023-07-02 10:05 | Emergency (ER) | payer OTHER ==
--- OUTSIDE RECORDS SUMMARY | 2023-07-02 10:10 | XMS REPORT | Continuity of Care Document ---
:1970 Author Organization [facility] t Address [address] [place] [address] Care Team Providers Name Role Phone Kassandra TALYOR, Alyssa Jha Primary Care Physician [phone] Kassandra TAYLOR, Alyssa Jha Attending Clinician Avelina Lovelace Attending Clinician Unavailable Surinder TAYLOR, Michelle Archer Attending Clinician [phone] [email or web address] Attending Clinician Unavailable Aleshia Manriquez Attending Clinician [phone] Buster MERCADO, Ly Cristina Attending Clinician Unavailable Doctor Unassigned, [place] Attending Clinician Unavailable [email or web address] Admitting Clinician Unavailable Payers Payer Name Policy Type Policy Number Effective Date Expiration Date S ource ALLIED BENEFIT [id number] 2014 SYSTEMS 00:00:00 MULTIPLAN GENERIC [id number] 2015 00:00:00 Problems Condition Condition Condition Status Onset Resolution Last Treating Co mments Source Name Details Category Date Date Treatment Clinician Date Left knee Left knee Disease Active Overview: [facility] ARMINDAD DJD 01-[address] 00:00: g of this Hospita 00 note l might be different from the original. mild on xray Hallux Hallux Disease Active Overview: Method i valgus of valgus of 01-05 Formattin s t right foot right foot 00:00: g of this Hospita 00 note l might be different from the original. 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 on xray DJD DJD Disease Active Overview: Method i [...] s s 03-30 00:00: Hospita 00 l Anemia Anemia Disease Active Univers 11-18 ity of 00:00: [place] [id number] [facility] Essential Essential Disease Active Met hodi hypertensi hypertensi 11-18 st on on 00:00: Hospita 00 l Menopause Menopause Disease Active Met hodi 11-18 st 00:00: Hospita 00 l Sleep Sleep Disease Active [facility] apnea apnea 11-18 st 00:00: Hospita 00 l Type 2 Type 2 Disease Active [facility] diabetes diabetes 11-18 st mellitus mellitus 00:00: Hospit a with with 00 l complicati complicati on, on, without without long-term long-term current current use of use of insulin insulin Allergies, Adverse Reactions, Alerts Allergy Allergy Status [...] Date Source Natural daughter No Known Problems [facility] Natural daughter Pancreatitis [facility] Natural sister No Known Problems [facility] Natural son No Known Problems [facility] brother [facility] father Hypertension [facility] mother Arthritis [facility] mother Asthma [facility] mother Depression [facility] mother Diabetes [facility] mother Heart disease [facility] Natural mother Hypertension [facility] Social History Social Habit Start Date Stop Date Quantity Comments Source Gender identity 2019-05-23 Identifies as [facility] 11:45:14 female gender Hospital (finding) Sexual orientation 2019-05-23 Heterosexual [facility]ist 11:45:14 (finding) Hospital Exposure to Not sure [facility] SARS-CoV-2 (event) Hospit al Tobacco use and 2023-02-26 2023-02-26 Smokeless tobacco Me thodist exposure 00:00:00 00:00:00 non-user Hospital Alcohol intake 2023-02-26 2023-02-26 Current non-drinker M [facility]ist 00:00:00 00:00:00 of alcohol Hospital (finding) History of Social 2023-02-26 2023-02-[address] function 00:00:00 00:00:00 Hospital Sex Ass[birth year] At [birth year] [facility] 00:[facility]00 00:00:00 [facility] Smoking Status Start Date Stop Date Source Never smoked tobacco [facility] Medications Ordered Filled Start Stop Current Ordering Indication Dosage Frequency Signature Comments Components Source Medication Medication Date Date Medication? Clinician (SIG) Name Name benzonatate 2022-08 Yes TAKE 1 [facility] (TESSALON) 0-[address] 100 MG 14:33: MOUTH Hospita capsule 18 EVERY 8 l HOURS NEEDED FOR COUGH AND CONGESTION tirzepatide Yes [id number] 5mg Q7D Inject 0.5 [facility] (Mounjaro) 7-19 mL ([address] 5 mg/0.5 mL 00:00: total) Hosp jerardo pen 00 under the l injector skin once a week. Start after 28 days of the 2.5 mg dose of Mounjaro benzonatate 2022- No 100mg Q.[id number] Take 1 [facility] (TESSALON) 6-19 06-[id number] 100 MG 14:58: 00:00 3D (100 mg Hospita capsule 27 :00 total) by l mouth 3 (three) times a day as needed for cough. cetirizine Yes [id number] 10mg QD Take 1 M ethodi (ZyrTEC) 10 6-19 tablet (10 st MG tablet 00:00: mg total) Hos ban 00 by mouth l daily. hydroCHLORO Yes [id number] 12.5mg QD Take 1 [facility] thiazide 6-[address] (HYDRODIURI 00:00: (12.5 mg Ho spita L) 12.5 MG 00 total) by l tablet mouth daily. tirzepatide 2022- No [id number] 2.5mg Q1W Inject 0.5 [facility] (Mounjaro) 6-19 07-20 mL (2.[address] 2.5 mg/0.5 00:00: 04:59 total) Hosp jerardo mL pen 00 :00 under the l injector skin every 7 days for 30 days. For 30 days pantoprazol Yes [id number] TAKE 1 Methodi e 3-[address] (PROTONIX) 00:00: MOUTH ONCE H ospita 40 MG EC 00 DAILY l tablet NEEDED pantoprazol 2022-0 Yes [id number] TAKE 1 Method[facility] e 3-[address] (PROTONIX) 00:00: MOUTH ONCE H ospita 40 MG EC 00 DAILY l tablet NEEDED hydroCHLORO 2022-0 Yes [id number] 12.5mg QD Take 1 [facility] thiazide 3-[address] (HYDRODIURI 00:00: (12.5 mg Ho spita L) 12.5 MG 00 total) by l tablet mouth daily. hydroCHLORO 2022-0 3- No [id number] 12.5mg QD Take 1 [facility] thiazide 3-20 -[address] (HYDRODIURI 00:00: 00:00 (12.5 mg H ospita L) 12.5 MG 00 :00 total) by l tablet mouth daily. benzonatate 2022-0 Yes 100mg Q.[id number] Take 1 [facility] (TESSALON) - [id number] capsule st 100 MG 11:39: 3D (100 mg Hospita capsule 25 total) by l mouth 3 (three) times a day as needed for cough. hydrOXYzine 2022-0 Yes [id number] 10mg Q.[id number] Take 1 [facility] (ATARAX) 10 2- [id number] tablet (10 st MG tablet 00:00: 3D mg total) Hos ban 00 by mouth 3 l (three) times a day as needed for anxiety. hydrOXYzine 2022-0 Yes [id number] 10mg Q.[id number] Take 1 [facility] (ATARAX) 10 2-09 [id number] tablet (10 st MG tablet 00:00: 3D mg total) Hos ban 00 by mouth 3 l (three) times a day as needed for anxiety. semaglutide 2023- No [id number] Inject [facility] (Ozempic) 10-[address] 0.25 mg or 00:00: 04:59 (0.25 mg Ho spita 0.5 mg(2 00 :00 total) l mg/1.5 mL) under the subcutaneou skin every s pen 7 days for 30 days, THEN 0.38 mL (0.5 mg total) every 7 days. semaglutide 2022- No [id number] Inject [facility] (Ozempic) 10-[address] 0.25 mg or 00:00: 00:00 (0.25 mg Ho spita 0.5 mg(2 00 :00 total) l mg/1.5 mL) under the subcutaneou skin every s pen 7 days for 30 days, THEN 0.38 mL (0.5 mg total) every 7 days. bromphenira 2022- No [id number] 5mL Q.25D Take 5 mL Methodi mine-pseudo 10-08 by mouth 4 s t eph-DM 00:00: 05:59 (four) Hospita - 00 :00 times a l mg/5 mL day as syrup needed for cough for up to 10 days. bromphenira 0 2022- No [id number] 5mL Q.25D Take 5 mL Methodi mine-pseudo 10-08 by mouth 4 s t eph-DM 00:00: 05:59 (four) Hospita 00 :00 times a l mg/5 mL day as syrup needed for cough for up to 10 days. amoxicillin 2022-2022- No [id number] 1{tbl} Q.5D Take 1 [facility] -pot 10-[address] clavulanate 00:00: 05:59 mouth 2 Ho spita (Augmentin) 00 :00 (two) l 875-125 mg times a per tablet day for 7 days. amoxicillin 2022- No [id number] 1{tbl} Q.5D Take 1 [facility] -pot 10-[address] clavulanate 00:00: 05:59 mouth 2 Ho spita (Augmentin) 00 :00 (two) l 875-125 mg times a per tablet day for 7 days. atorvastati Yes [id number] 20mg QD Take 1 Methodi n (LIPITOR) 05-28 tablet (20 st 20 mg 00:00: mg total) Hospita tablet 00 by mouth l nightly. citalopram 0 Yes [id number] TAKE 1 & [facility] (CeleXA) 20 - 1/2 (ONE & st MG tablet 00:00: ONE-HALF) Hos ban 00 TABLETS BY l MOUTH ONCE DAILY lisinopriL 2021-0 Yes [id number] 20mg Q.5D Take 1 M ethodi (PRINIVIL) 05-28 tablet (20 st 20 mg 00:00: mg total) Hospita tablet 00 by mouth 2 l (two) times a day. pantoprazol 2021-0 Yes [id number] 40mg Q24H Take 1 Methodi e 05-28 tablet (40 st (PROTONIX) 00:00: mg total) Ho spita 40 MG EC 00 by mouth l tablet daily as needed (GERD). atorvastati 2021-0 Yes [id number] 20mg QD Take 1 Methodi n (LIPITOR) 05-28 tablet (20 st 20 mg 00:00: mg total) Hospita tablet 00 by mouth l nightly. citalopram 0 Yes [id number] TAKE 1 & [facility] (CeleXA) 20 05-28 (ONE & st MG tablet 00:00: ONE-HALF) Hos ban 00 TABLETS BY l MOUTH ONCE DAILY lisinopriL 2021-0 Yes [id number] 20mg Q.5D Take 1 M ethodi (PRINIVIL) 05-28 tablet (20 st 20 mg 00:00: mg total) Hospita tablet 00 by mouth 2 l (two) times a day. atorvastati 0 Yes [id number] 20mg QD Take 1 Methodi n (LIPITOR) 05-28 tablet (20 st 20 mg 00:00: mg total) Hospita tablet 00 by mouth l nightly. citalopram 2021-0 Yes [id number] TAKE 1 & [facility] (CeleXA) 05-28 (ONE & st MG tablet 00:00: ONE-HALF) Hos ban 00 TABLETS BY l MOUTH ONCE DAILY lisinopriL 2021-0 Yes [id number] 20mg Q.5D Take 1 M ethodi (PRINIVIL) 05-28 tablet (20 st 20 mg 00:00: mg total) Hospita tablet 00 by mouth 2 l (two) times a day. pantoprazol 2021-0 2022- No [id number] 40mg Q24H Take 1 Methodi e 05-28 tablet (40 st (PROTONIX) 00:00: 00:00 mg total) H ospita 40 MG EC 00 :00 by mouth l tablet daily as needed (GERD). pantoprazol 2021-0 2022- No [id number] 40mg Q24H Take 1 Methodi e 9-29 03-29 tablet (40 st (PROTONIX) 00:00: 00:00 mg total) H ospita 40 MG EC 00 :00 by mouth l tablet daily as needed (GERD). lisinopriL 2021- No [id number] TAKE 1 [facility] (PRINIVIL) 05-[address] 20 mg 00:00: 00:00 MOUTH Hospita tablet 00 :00 TWICE l DAILY (INCREASED DOSE) lisinopriL 2021- No [id number] TAKE 1 [facility] (PRINIVIL) 05-[address] 20 mg 00:00: 00:00 MOUTH Hospita tablet 00 :00 TWICE l DAILY (INCREASED DOSE) pantoprazol 2021- No [id number] TAKE 1 Methodi e 02-[address] (PROTONIX) 00:00: 00:00 MOUTH ONCE Hospita 40 MG EC 00 :00 DAILY l tablet NEEDED ( REFLUX ) STOP RANITIDINE pantoprazol 2021- No [id number] TAKE 1 Methodi e 02-[address] (PROTONIX) 00:00: 00:00 MOUTH ONCE Hospita 40 MG EC 00 :00 DAILY l tablet NEEDED ( REFLUX ) STOP RANITIDINE cyclobenzap Yes [id number] 10mg QD Take 1 Methodi rine 3-12 tablet (10 st (FLEXERIL) 00:00: mg total) Ho spita 10 mg 00 by mouth l tablet nightly as needed for muscle spasms. rx with refills will last 1 year cyclobenzap Yes [id number] 10mg QD Take 1 Methodi rine 3-12 tablet (10 st (FLEXERIL) 00:00: mg total) Ho spita 10 mg 00 by mouth l tablet nightly as needed for muscle spasms. rx with refills will last 1 year cyclobenzap Yes [id number] 10mg QD Take 1 Methodi rine 3-12 tablet (10 st (FLEXERIL) 00:00: mg total) Ho spita 10 mg 00 by mouth l tablet nightly as needed for muscle spasms. rx with refills will last 1 year lisinopriL 2021- No [id number] 20mg Q.5D Take 1 [facility] (PRINIVIL) 11-08 tablet (20 st 20 mg 00:00: 00:00 mg total) Hospit a tablet 00 :00 by mouth 2 l (two) times a day. Increase dose lisinopriL 2021- No [id number] 20mg Q.5D Take 1 [facility] (PRINIVIL) 11-08 tablet (20 st 20 mg 00:00: 00:00 mg total) Hospit a tablet 00 :00 by mouth 2 l (two) times a day. Increase dose cetirizine Yes [id number] 10mg QD Take 1 M ethodi (ZyrTEC) 10 05-13 tablet (10 st MG tablet 00:00: mg total) Hos ban 00 by mouth l daily. cetirizine Yes [id number] 10mg QD Take 1 M ethodi (ZyrTEC) 10 05-13 tablet (10 st MG tablet 00:00: mg total) Hos ban 00 by mouth l daily. cetirizine 2022- No [id number] 10mg QD Take 1 [facility] (ZyrTEC) 10 05-13 tablet (10 s t MG tablet 00:00: 00:00 mg total) Ho spita 00 :00 by mouth l daily. citalopram 2021- No [id number] TAKE 1 & [facility] (CeleXA) 20 05-13 1/2 (ONE & s t MG tablet 00:00: 00:00 ONE-HALF) Ho spita 00 :00 TABLETS BY l MOUTH ONCE DAILY atorvastati 2021- No [id number] 20mg QD Take 1 Methodi n (LIPITOR) 05-13 tablet (20 s t 20 mg 00:00: 00:00 mg total) Hospit a tablet 00 :00 by mouth l nightly. citalopram 2021- No [id number] TAKE 1 & [facility] (CeleXA) 20 05-13 1/2 (ONE & s t MG tablet 00:00: 00:00 ONE-HALF) Ho spita 00 :00 TABLETS BY l MOUTH ONCE DAILY atorvastati 2021- No [id number] 20mg QD Take 1 Methodi n (LIPITOR) 05-13 tablet (20 s t 20 mg 00:00: 00:00 mg total) Hospit a tablet 00 :00 by mouth l nightly. pantoprazol 2021- No [id number] 40mg Q24H Take 1 Methodi e 05-13 tablet (40 st (Protonix) 00:00: 00:00 mg total) H ospita 40 MG EC 00 :00 by mouth l tablet daily as needed (reflux). Dc ranitidine pantoprazol 2021- No [id number] 40mg Q24H Take 1 Methodi e 05-13 tablet (40 st (Protonix) 00:00: 00:00 mg total) H ospita 40 MG EC 00 :00 by mouth l tablet daily as needed (reflux). Dc ranitidine lisinopriL 2021- No [id number] 20mg QD Take 1 [facility] (PRINIVIL) 05-13 tablet (20 st 20 mg 00:00: 00:00 mg total) Hospit a tablet 00 :00 by mouth l daily. lisinopriL Yes [id number] Take 1 M ethodi (PRINIVIL) 03-[address] 20 mg 00:00: mouth once Hospit a tablet 00 daily l pantoprazol Yes [id number] 40mg Q24H Take 1 Method[facility] e 2-08 tablet (40 st (Protonix) 00:00: mg total) Ho spita 40 MG EC 00 by mouth l tablet daily as needed (reflux). Dc ranitidine citalopram Yes [id number] 30mg QD Take 1.5 [facility] (CeleXA) 20 05-[address] MG tablet 00:00: (30 mg Hospit a 00 total) by l mouth daily. Increase dose atorvastati Yes [id number] 20mg QD Take 1 Methodi n (LIPITOR) 05-01 tablet (20 st 20 mg 00:00: mg total) Hospita tablet 00 by mouth l nightly. lisinopriL 2020- No [id number] 20mg QD Take 1 [facility] (PRINIVIL) 05-01 08- tablet (20 st 20 mg 00:00: 00:00 [...] tablet 00 total) by l mouth daily. estradioL 2020-0 Yes .5mg QD Take 0.5 [facility] (ESTRACE) 8-[address] 0.5 MG 00:00: mouth Hospita tablet 00 daily. l estradioL 2020-0 Yes .5mg QD Take 1 Method i (ESTRACE) 8-[address] 0.5 MG 00:00: (0.5 mg Hospita tablet 00 total) by l mouth daily. lisinopriL 2019- No [id number] Take 1 [facility] (PRINIVIL) 6-30 -[address] 20 mg 00:00: 00:00 mouth once Hospi ta tablet 00 :00 daily l cyclobenzap Yes [id number] 10mg QD Take 1 Methodi rine 3-30 tablet (10 st (FLEXERIL) 00:00: mg total) Ho spita 10 mg 00 by mouth l tablet nightly as needed for muscle spasms. cyclobenzap 2021- No [id number] 10mg QD Take 1 Methodi rine 3-30 03-12 tablet (10 st (FLEXERIL) 00:00: 00:00 mg total) H ospita 10 mg 00 :00 by mouth l tablet nightly as needed for muscle spasms. pantoprazol 2020- No [id number] 40mg QD Take 1 Methodi e 3-30 02-08 tablet (40 st (Protonix) 00:00: 00:00 mg total) H ospita 40 MG EC 00 :00 by mouth l tablet daily. Dc ranitidine citalopram 2019- No [id number] 30mg QD Take 1.5 [facility] (CeleXA) 20 3-30 09-[address] MG tablet 00:00: 00:00 (30 mg Hospi ta 00 :00 total) by l mouth daily. Increase dose atorvastati 2018-08- No [id number] TAKE 1 [facility] n (LIPITOR) 0-30 05-[address] 20 MG 00:00: 00:00 MOUTH Hospita tablet 00 :00 NIGHTLY l flash 2019- No [id number] 1{each} QD 1 each [facility] glucose 2-05-[address] scanning 00:00: 00:00 Hospita reader 00 :00 l (FREESTYLE DIXON 14 DAY READER) misc flash 2019- No [id number] 1{each} QD 1 each Me thodi glucose 2-05-[address] sensor 00:00: 00:00 Hospita (FREESTYLE 00 :00 l DIXON 14 DAY SENSOR) kit ATORVASTATI Yes [id number] TAKE ONE Univers N 20 mg 5-23 TABLET BY ity of tablet 00:00: MOUTH AT [place] 00 BEDTIME Medical Branch ATORVASTATI Yes [id number] TAKE ONE Univers N 20 mg 5-23 TABLET BY ity of tablet 00:00: MOUTH AT [place] 00 BEDTIME Medical Branch LISINOPRIL 0 Yes [id number] TAKE ONE Univers 20 mg 4-13 TABLET BY ity of tablet 00:00: MOUTH ONCE [place] 00 DAILY [facility] Branch LISINOPRIL 20180 Yes [id number] TAKE ONE Univers 20 mg 4-13 TABLET BY ity of tablet 00:00: MOUTH ONCE [place] 00 DAILY [facility] citalopram 2016-08 Yes [id number] 10mg Take 1 U nivers 10 mg 2-22 tablet by ity of tablet 00:00: mouth [place] 00 daily. [facility] citalopram 2016-08 Yes [id number] 10mg Take 1 U nivers 10 mg [...] 6 HOURS NEEDED Immunizations Ordered Immunization Filled Date Status Comments Sour ce Name Immunization Name SHAW KOHLERID-19 2022-10-08 Completed [facility] t MRNA BIVALENT 00:00:00 Hospital BOOSTER VACCINATION FLUCELVAX QUAD PF 2022-05-[address] 00:00:00 [facility] FLUCELVAX QUAD PF 2022-05-[address] 00:00:00 [facility] Tdap 2022-04-20 Completed [facility] 00:00:00 Hospital Zoster Vaccine 2022-04-20 Completed [facility] Recombinant 00:00:00 [facility] Tdap 2022-04-20 Completed [facility] 00:00:00 [facility] Zoster Vaccine 2022-04-20 Completed [facility] Recombinant 00:00:00 [facility] COVID-19 2022-01-16 Completed Method[facility] t MRNA VACCINATION 00:00:00 [facility] Zoster Vaccine 2022-01-16 Completed [facility] Recombinant 00:00:00 [facility] COVID-19 2022-01-16 Completed Method[facility] t MRNA VACCINATION 00:00:00 [facility] Zoster Vaccine 2022-01-16 Completed [facility] Recombinant 00:00:00 [facility] FLUCELVAX QUAD PF 2021-10-[address] 00:00:00 [facility] FLUCELVAX QUAD PF 2021-10-[address] 00:00:00 [facility] influenza, influenza, 2021-10-17 Completed [facility] unspecified unspecified 00:00:00 formulation formulation [facility] FID-19 2021-02-08 Completed Method[facility] t MRNA VACCINATION 00:00:00 [facility] COVID-19 2021-02-08 Completed [facility] t MRNA VACCINATION 00:00:00 [facility] COVID19 COVID-19 2021-02-08 Completed [facility] (SARS-COV-2) (SARS-COV-2) 00:00:00 vaccine, unspecified vaccine, unspecified [facility] COVID-19 2021-01-11 Completed [facility] t MRNA VACCINATION 00:00:00 [facility] COVID-19 2021-01-11 Completed [facility] t MRNA VACCINATION 00:00:00 [facility] COVID-19 COVID-19 2021-01-11 Completed [facility] (SARS-COV-2) (SARS-COV-2) 00:00:00 vaccine, unspecified vaccine, unspecified Influenza (IM) 2019-09-19 Completed [facility] Preservative Free 00:00:00 Hospita l Influenza (IM) 2019-09-19 Completed [facility] Preservative Free 00:00:00 Hospita l Influenza (IM) 2019-09-19 Completed [facility] Preservative Free 00:00:00 Hospita l FLUZONE QUAD PF 2019-05-25 Completed [facility] 00:00:00 Hospital FLUZONE QUAD PF 2019-05-25 Completed [facility] 00:00:00 Hospital FLUZONE QUAD PF 2019-05-25 Completed [facility] 00:00:00 Hospital FLUZONE QUAD PF 2018-10-18 Completed [facility] 00:00:00 Hospital FLUZONE QUAD PF 2018-10-18 Completed [facility] 00:00:00 Hospital FLUZONE QUAD PF 2018-10-18 Completed [facility] 00:00:00 Hospital FLUZONE QUAD 2017-08-20 Completed [facility] 00:00:00 Hospital FLUZONE QUAD 2017-08-20 Completed [facility] 00:00:00 Hospital FLUZONE QUAD 2017-08-20 Completed [facility] 00:00:00 [facility] Influenza Virus 2017-08-20 Completed Universit y of Vaccine Quad IM 3+ 00:00:00 [facility] Influenza Virus 2017-08-20 Completed Universit y of Vaccine Quad IM 3+ 00:00:00 [facility] Pneumococcal 2013-03-12 Completed [facility] Polysaccharide 00:00:00 Hospital Pneumococcal 2013-03-12 Completed [facility] Polysaccharide 00:00:00 Hospital Pneumococcal 2013-03-12 Completed [facility] Polysaccharide 00:00:00 Hospital Pneumococcal 2013-03-12 Completed University o f Polysaccharide, 00:00:00 [facility] ical PPSV23 (PNEUMOVAX) Branch Pneumococcal 2013-03-12 Completed University o f Polysaccharide, 00:00:00 [place] [facility] ical PPSV23 (PNEUMOVAX) Branch FLUZONE QUAD Unknown Completed [facility] Hospital Pneumococcal Unknown Completed [facility] Polysaccharide Hospital Influenza, Unknown Completed [facility] Injectable, Hospital Quadrivalent, Preservative Free Influenza, Unknown Completed [facility] Injectable, Hospital Quadrivalent, Preservative Free Influenza (IM) Unknown Completed [facility] Preservative Free Hospita l MODERNA COVID-19 Unknown Completed [facility] MRNA VACCINATION Hospital MODERNA COVID-19 Unknown Completed [facility] MRNA VACCINATION Hospital FLUCELVAX QUAD PF Unknown Completed [facility] MODERNA COVID-19 Unknown Completed [facility] MRNA VACCINATION Hospital Tdap Unknown Completed [facility] Zoster Vaccine Unknown Completed [facility] Recombinant [facility] Zoster Vaccine Unknown Completed [facility] FLUCELVAX QUAD PF Unknown Completed [facility] MODERNA COVID-19 Unknown Completed [facility] BIVALENT Hospital BOOSTER VACCINATION SARS-COV-2 Unknown Completed [facility] (COVID-19) Vaccine, Hospi lyly Unspecified SARS-COV-2 Unknown Completed [facility] (COVID-19) Vaccine, Hospi lyly Unspecified MODERNA >12 YR Unknown Completed [facility] COVID-19 MRNA Hospital VACCINATION Vital Signs Vital Name Observation Time Observation Value Comments Source BP Diastolic 2021-10-23 00:00:00 82 mm[Hg] [facility] edical Height 2021-10-23 00:00:00 63 [in_i] [facility] BMI (Body Mass 2021-10-23 00:00:00 51.3 kg/m2 [facility] Medical Index) BP Systolic 2021-10-23 00:00:00 124 mm[Hg] [facility] Body Weight 2021-10-23 00:00:00 289.6 [lb_av] [facility] Systolic blood 2023-02-26 15:17:00 132 mm[Hg] [facility] Hospital pressure Diastolic blood 2023-02-26 15:17:00 87 mm[Hg] [facility] pressure Heart rate 2023-02-26 15:17:00 92 /min [facility] Body height 2023-02-26 15:17:00 160 cm [facility] Body weight 2023-02-26 15:17:00 128.822 kg [facility] BMI 2023-02-26 15:17:00 50.31 kg/m2 [facility] Systolic blood 2022-10-08 17:34:00 152 mm[Hg] Method is Hospital pressure Diastolic blood 2022-10-08 17:34:00 121 mm[facility]Hg[facility] Heart rate 2022-10-08 17:34:00 91 /min [facility] Body height 2022-10-08 17:34:00 160 cm [facility] Body weight 2022-10-08 17:34:00 131.997 kg [facility] BMI 2022-10-08 17:34:00 51.55 kg/m2 [facility] Systolic blood 2022-05-28 14:02:00 126 mm[Hg] Method ist Hospital pressure Diastolic blood 2022-05-28 14:02:00 92 mm[Hg] [facility] pressure Heart rate 2022-05-28 14:02:00 87 /min [facility] Body height 2022-05-28 14:02:00 160 cm [facility] Body weight 2022-05-28 14:02:00 130.636 kg [facility] BMI 2022-05-28 14:02:00 51.02 kg/m2 [facility] Oxygen saturation in 2021-10-17 17:17:00 100 /min [facility] Arterial blood by Pulse oximetry Systolic blood 2020-10-07 14:13:00 134 mm[Hg] [facility] Hospital pressure Diastolic blood 2020-10-07 14:13:00 84 mm[Hg] [facility] pressure Heart rate 2020-10-07 14:13:00 77 /min [facility] Body height 2020-10-07 14:13:00 160 cm [facility] Body weight 2020-10-07 14:13:00 126.1 kg [facility] BMI 2020-10-07 14:13:00 49.25 kg/m2 [facility] Procedures Procedure Date / Time Performing Clinician Source Performed HEMOGLOBIN A1C 2023-03-04 15[facility]28[facility]ABOLIC 2023-03-04 15:28:00 AntonetteMeri MartinezFormerly [facility] PANEL XR FOOT 3+ VW RIGHT 2023-02-26 15:28:17 Michelle Chaudhary [facility] Suzi VITAMIN D 25 HYDROXY LEVEL 2022-10-16 14:16:00 [facility] ALBUMIN WITH CREATININE 2022-10-16 14:16:00 [facility]a [facility] RATIO, RANDOM URINE LIPID PANEL 2022-10-16 14:16[facility] HEMOGLOBIN A1C 2022-10-16 14:16:00 AntonetteJuan [facility] COMPREHENSIVE METABOLIC 2022-10-16 14:16:00 AntonetteJuan [facility] PANEL CBC WITH PLATELET AND 2022-10-16 14:16:00 [facility], [facility] DIFFERENTIAL TSH WITH REFLEX TO FREE T4 2022-10-16 14:16:00 [facility], [facility] ESTIMATED GFR 2022-10-16 14:16:00 [facility], [facility] HEMOGLOBIN A1C 2022-05-28 15:16:00 [facility], [facility] MAMMO, screening, digital, 2021-10-23 00:00:00 [facility] bilateral URINALYSIS, AUTOMATED WITH 2021-10-17 22:46:00 [facility], [facility] MICROSCOPY MICROSCOPIC EXAMINATION 2021-10-17 22:46:00 [facility], [facility] HEPATITIS C ANTIBODY 2021-10-17 18:21:00 [facility], [facility] MICROALBUMIN / CREATININE 2021-10-17 18:21:00 [facility], [facility] URINE RATIO CBC WITH PLATELET AND 2021-10-17 18:21:00 [facility], [facility] DIFFERENTIAL COMPREHENSIVE METABOLIC 2021-10-17 18:21:00 [facility], [facility] PANEL LIPID PANEL 2021-10-17 18:21:00 [facility], [facility] THYROID CASCADE 2021-10-17 18:21:00 [facility], [facility] PANEL/REFLEX HEMOGLOBIN A1C 2021-10-17 18:21:00 [facility], [facility] FERRITIN LEVEL 2021-10-17 18:21:00 [facility], [facility] IRON LEVEL 2021-10-17 18:21:00 [facility], [facility] VITAMIN B12 LEVEL 2021-10-17 18:21:00 [facility], [facility] ASSIGNMENT OF BENEFITS 2021-04-17 23:30:56 [facility]IN[facility]YS[facility], AUTOMATED WITH 2020-10-07 17:34:00 [facility] MICROSCOPY MICROSCOPIC EXAMINATION 2020-10-07 17:34:00 [facility] MICROALBUMIN / CREATININE 2020-10-07 17:34:00 [facility] URINE RATIO CBC WITH PLATELET AND 2020-10-07 17:34:00 [facility] DIFFERENTIAL COMPREHENSIVE METABOLIC 2020-10-07 17:34:00 [facility] PANEL HEMOGLOBIN A1C 2020-10-07 17:34:00 [facility] LIPID PANEL 2020-10-07 17:34:00 [facility] Cholecystectomy 2014-05-30 00:00:00 [facility] (Gallbladder) Hysterectomy with 2012-08-30 00:00:00 [facility] Oopherectomy (Ovaries Removed) Plan of Care Planned Activity Planned Date Details Comments Source Future Scheduled 2023-06-30 Screening for malignant [facility]vism Test 09:19:47 neoplasm of colon Hospital (procedure) [code = 021113906] Future Scheduled 2023-06-30 Screening for malignant [facility]vism Test 09:19:47 neoplasm of colon Hospital (procedure) [code = 243763009] Future Scheduled 2023-06-30 Screening for malignant Alevism Test 09:19:47 neoplasm of colon Hospital (procedure) [code = 169768320] Future Scheduled 2023-06-30 Pneumococcal Vaccine: Me thodist Test 09:19:47 Pediatrics (0 to 5 Hospital Years) and At-Risk Patients (6 to 64 Years) (2 - PCV) [code = Pneumococcal Vaccine: Pediatrics (0 to 5 Years) and At-Risk Patients (6 to 64 Years) (2 - PCV)] Future Scheduled 2023-06-30 Screening for malignant [facility]vism Test 09:19:47 neoplasm of colon Hospital (procedure) [code = 376171602] Future Scheduled 2023-06-30 Screening for malignant Alevism Test 09:19:47 neoplasm of colon Hospital (procedure) [code = 071555398] Future Scheduled 2023-06-30 DIABETES: RETINAL EYE [facility] Test 09:19:47 EXAM [code = DIABETES: Hospi lyly RETINAL EYE EXAM] Future Scheduled 2023-06-30 BREAST CANCER SCREENING [facility] Test 09:19:47 [code = BREAST CANCER Hospit al SCREENING] Future Scheduled 2023-06-30 INFLUENZA VACCINE (#1) M ethodist Test 09:19:47 [code = INFLUENZA Hospital VACCINE (#1)] Future Scheduled 2023-06-30 DIABETIC FOOT EXAM [code [facility] Test 09:19:47 = DIABETIC FOOT EXAM] Hospit al Future Scheduled 2023-06-30 URINE MICROALBUMIN [code [facility] Test 09:19:47 = URINE MICROALBUMIN] Hospit al Future Scheduled 2022-12-25 Pneumococcal Vaccine: Me thodist [...] EXAM] Future Scheduled 2022-12-25 BREAST CANCER SCREENING [facility] Test 01:56:06 [code = BREAST CANCER Hospit al SCREENING] Future Scheduled 2022-12-25 INFLUENZA VACCINE [code [facility] Test 01:56:06 = INFLUENZA VACCINE] Hospita l Future Scheduled 2022-12-25 DIABETIC FOOT EXAM [code [facility] Test 01:56:06 = DIABETIC FOOT EXAM] Hospit al Future Scheduled 2022-12-25 URINE MICROALBUMIN [code [facility] Test 01:56:06 = URINE MICROALBUMIN] Hospit al [...] Future Scheduled 2022-09-20 DIABETIC FOOT EXAM [code [facility] Test 00:58:01 = DIABETIC FOOT EXAM] Hospit al Future Scheduled 2022-09-20 URINE MICROALBUMIN [code [facility] Test 00:58:01 = URINE MICROALBUMIN] Hospit al Future Scheduled 2022-09-20 BREAST CANCER SCREENING [facility]vism Test 00:58:01 [code = BREAST CANCER Hospit [...] Me thodist Test (procedure) [code = Hospital 696130806] Future Scheduled COLONOSCOPY SCREENING Me thodist Test [code = COLONOSCOPY Hospital SCREENING] Future Scheduled DIABETIC FOOT EXAM [code Alevism Test = DIABETIC FOOT EXAM] Hospit al Future Scheduled DIABETES: RETINAL EYE Me thodist Test EXAM [code = DIABETES: Hospi lyly RETINAL EYE EXAM] Future Scheduled INFLUENZA VACCINE [code Alevism Test = INFLUENZA VACCINE] Hospita l Future Scheduled SHINGLES VACCINES (#1) M ethodist Test [code = SHINGLES Hospital VACCINES (#1)] Future Scheduled URINE MICROALBUMIN [code Alevism Test = URINE MICROALBUMIN] Hospit al Future Scheduled BREAST CANCER SCREENING Alevism Test [code = BREAST CANCER Hospit al SCREENING] Encounters Start End Encounter Admission Attending Care Care Encounter Source Date/Time Date/Time Type Type Clinicians Facility Department ID 2023-06-26 2023-06-26 Refill Kassandra, 1.2.840.1 [id number] Methodi 00:00:00 00:00:00 [address] 3.430.2.7 Hospit a .3.090141 l .8 2023-06-26 2023-06-26 Refill Kassandra, 1.2.840.1 [id number] Methodi 00:00:00 00:00:[address]049.1.[address] 3.430.2.7 Hospit a .3.394399 l .8 2023-06-26 2023-06-26 Refill Kassandra, 1.2.840.1 [id number] Methodi 00:00:00 00:00:[address] 3.430.2.7 Hospit a .3.822186 l .8 2023-06-25 2023-06-25 Orders Radu, 1.2.840.1 [id number] Methodi 00:00:00 00:00:00 Only Avelina [address]250.1.[address] 3.430.2.7 Hospit a .3.474379 l .8 2023-02-26 2023-02-26 Office Alyssa Singleton 1.2.840.1 [id number] Methodi 11:00:00 11:35:32 Visit Michelle Chaudhary 59940.1.[address] 3.430.2.7 Hospit a .3.741827 l .8 2023-02-26 2023-02-26 Outpatient KASSANDRA [facility] [id number] Ethel 00:00:00 00:00:00 ALYSSA [address] 2023-02-26 2023-02-26 Outpatient CHAUDHARY, [facility] [id number] Ethel 00:00:00 00:00:00 MICHELLE [address] 2023-02-15 2023-02-15 Telemedici Kassandra, 1.2.840.1 [id number] Methodi 14:20:00 15:20:36 ne Alyssa TDung 66866.1.[address] 3.430.2.7 Hospit a .3.912834 l .8 2023-02-15 2023-02-15 Outpatient KASSANDRA, [facility] [id number] Ethel 00:00:00 00:00:00 ALYSSA [address] 2023-01-04 2023-01-20 Telemedici Kassandra, 1.2.840.1 [id number] Methodi 11:00:00 00:25:39 ne Alyssa TDung 38374.1.[address] 3.430.2.7 Hospit a .3.318600 l .8 2023-01-04 2023-01-04 Outpatient KASSANDRA, [facility] 2100 [id number] Ethel 00:00:00 00:00:00 ALYSSA [address] 2022-11-25 2022-11-25 Refill ZenaidaMartinez, 1.2.840.1 [id number] Methodi 00:00:00 00:00:00 [address] 3.430.2.7 Hospit a .3.819074 l .8 2022-11-25 2022-11-25 Refill ZenaidaMartinez, 1.2.840.1 [id number] 485 [id number] Methodi 00:00:00 00:00:[address] 3.430.2.7 Hospit a .3.287869 l .8 2022-11-18 2022-11-18 Outpatient GC_SWHAOM_ PRIV PRIV 504 6123-20 [facility] 00:00:00 00:00:00 Black_Preet [id number] Medica l 2022-11-13 2022-11-13 Outpatient GC_SWHAOMC_ PRIV PRIV 504 6123-20 [facility] 00:00:00 00:00:00 Black_D 080695 Medica l 2022-10-16 2022-10-16 Lab Kassandra, 1.2.840.1 [id number] Methodi 08:20:00 08:25:[address] 3.430.2.7 Hospit a .3.399297 l .8 2022-10-16 2022-10-16 Lab AntonetteJuan, 1.2.840.1 [id number] [id number] Methodi 08:20:00 08:25:[address] 3.430.2.7 Hospit a .3.573184 l .8 2022-10-08 2022-10-08 Office AntonetteJuan, 1.2.840.1 [id number] [id number] Methodi 10:40:00 12:28:47 Visit Alyssa T. 85737.1.[address] 3.430.2.7 Hospit a .3.024214 l .8 2022-10-08 2022-10-08 Office AntonetteMartinez, 1.2.840.1 [id number] 729 [id number] Methodi 10:40:00 12:28:47 Visit Alyssa T. 37687.1.[address] 3.430.2.7 Hospit a .3.566378 l .8 2022-05-28 2022-05-28 Office WhitmanMartinez, 1.2.840.1 [id number] Methodi 09:00:00 10:12:24 Visit Alyssa T. 46615.1.[address] 3.430.2.7 Hospit a .3.595854 l .8 2022-05-28 2022-05-28 Travel 1.2.840.1 1.2.993.980 4845 [id number] Methodi 00:00:00 00:00:[address] 3.430.2.7 0.2.7.3.698 Ho spita .3.891077 084.8 l .8 2022-05-01 2022-05-01 Refill Kassandra, 1.2.840.1 [id number] Methodi 00:00:00 00:00:00 Alyssa [address]. [address] 3.430.2.7 Hospit a .3.701959 l .8 2022-03-30 2022-03-30 Travel 1.2.840.1 1.2.136.030 2533 [id number] Methodi 00:00:00 00:00:[address] 3.430.2.7 0.2.7.3.698 Ho spita .3.850336 084.8 l .8 2022-02-21 2022-02-21 Refill Kassandra, 1.2.840.1 [id number] Methodi 00:00:00 00:00:00 Alysas Garcia. 00400.1.[address] 3.430.2.7 Hospit a .3.366355 l .8 2021-12-17 2021-12-17 Travel 1.2.840.1 1.2.007.905 6293 [id number] Methodi 00:00:00 00:00:[address] 3.430.2.7 0.2.7.3.698 Ho spita .3.818718 084.8 l .8 2021-10-27 2021-10-27 Outpatient GC_SWHAOM_ PRIV PRIV 504 6123-20 [facility] 00:00:00 00:00:00 Black_D 259035 Medica l 2021-10-23 2021-10-23 Outpatient GC_SWHAOMC_ PRIV PRIV 504 6123-20 [facility] 04:47:00 04:47:00 Black_D 220240 Medica l 2021-10-23 2021-10-23 Aleshia [facility] 00:00:00 00:00:00 [facility] Medic pretty Manriquez MD: GC_SWVICKIEC_ [address], [place] [address] , Ph. 2021-10-23 2021-10-23 Outpatient Aleshia Manriquez PRIV PRIV 880 [id number] 00:00:00 00:00:00 Enoch [id number]-[id number] 2021-10-22 2021-10-22 Outpatient GC_SWHAOMC_ PRIV PRIV 504 6123-20 [facility] 10:38:00 10:38:00 Black_D [id number] Medica l 2021-10-17 2021-10-17 Office Kassandra, 1.2.840.1 [id number] Methodi 10:20:00 12:00:57 Visit Alyssa Jha 04994.1.[address] 3.430.2.7 Hospit a .3.450774 l .8 2021-10-17 2021-10-17 Travel 1.2.840.1 1.2.589.865 1425 [id number] Methodi 00:00:00 00:00:[address] 3.430.2.7 0.2.7.3.698 Ho spita .3.492835 084.8 l .8 2021-08-31 2021-08-31 Outpatient R [facility] [id number] Univers 11:15:00 11:15:[address] [facility] 2021-05-13 2021-05-13 Outpatient KASSANDRA [facility] [id number] Ethel 00:00:00 00:00:00 ALYSSA [address] 2021-04-22 2021-04-22 Travel 1.2.840.1 1.2.945.831 0602 [id number] Methodi 00:00:00 00:00:[address] 3.430.2.7 0.2.7.3.698 Ho spita .3.580931 084.8 l .8 2021-04-19 2021-04-19 Telephone DONALD Goins 1.2.736.835 0869 3433 Univers 00:00:00 00:00:00 Ly P CORIE 350.1.13.10 ity of [facility] 4.2.7.2.686 Pastor as [id number] [facility] 019 Branch 2021-04-17 2021-04-17 Outpatient R [facility] [id number] Univers 18:30:00 18:30:00 ity of [facility] 2021-04-17 2021-04-17 Orders Doctor DONALD 1.2.840.114 [id number] Univers 00:00:00 00:00:00 Only Unassigned, CORIE 350.1.13.10 ity of [place] [facility] 4.2.7.2.686 Pastor as [id number] [facility] 009 Branch 2021-04-08 2021-04-08 Travel 1.2.840.1 1.2.835.272 9636 [id number] Methodi 00:00:00 00:00:[address] 3.430.2.7 0.2.7.3.698 Ho spita .3.888107 084.8 l .8 2021-03-29 2021-03-29 Refill Kassandra, 1.2.840.1 [id number] Methodi 00:00:00 00:00:00 [address] 3.430.2.7 Hospit a .3.304973 l .8 2021-02-12 2021-02-12 Outpatient _[facility]_ PRIV PRIV 504 6123-20 [facility] 03:12:00 03:12:00 Black_D 983527 Medica l 2020-10-07 2020-10-07 Office Kassandra 1.2.840.1 [id number] Methodi 08:09:17 09:08:06 Visit Alyssa Singh.1.[address] 3.430.2.7 Hospit a .3.139420 l .8 2020-10-07 2020-10-07 Travel 1.2.840.1 1.2.485.580 7891 [id number] Methodi 00:00:00 00:00:[address] 3.430.2.7 0.2.7.3.698 Ho spita .3.471868 084.8 l .8 2020-09-17 2020-09-17 Travel 1.2.840.1 1.2.458.503 8587 [id number] Methodi 00:00:00 00:00:[address] 3.430.2.7 0.2.7.3.698 Ho spita .3.955846 084.8 l .8 2020-05-01 2020-05-01 [facility] 1.2.840[facility]1 [id number] 836 [id number] Methodi 13:57:41 15:01:17 Visit Alyssa Jha 34278.1.[address] 3.430.2.7 Hospit a .3.481161 l .8 2020-05-01 2020-05-01 Travel 1.2.840.1 1.2.358.630 4585 979694 Methodi 00:00:00 00:00:[address] 3.430.2.7 0.2.7.3.698 Ho spita .3.129113 084.8 l .8 Results Test Description Test Time Test Comments Results Result Comments Source Comprehensive metabolic panel 2023-03-05 06:41:00 Test Item Value Reference Range Interpretation Comme nts Glucose (test code = 143 mg/dL 65-99 H Fastin g reference 2345-7) interval For so meone without known d iabetes, a glucosevalue >125 mg/dL indicates that they may havedi abetes and this should be confirmed with afollow-up test . BUN (test code = 3094-0) 15 mg/dL 7-25 Creatinine (test code = 0.83 mg/dL 0.50-1.03 2160-0) eGFR (test code = 84 See_Comment [place] [address]-3) the CKD-EPI 202 1 equation. To ca lculate the new eGFR fr om a previous Creati nine or Cystatin Cresul t, go to https://www.kid aldo.org/ professionals/k doqi/gfr %5Fcalculator [Automated mess age] The system which ge nerated this result tra nsmitted reference range : > OR = 60 mL/min/1.73m 2. The reference range was not used to interpr et this result as normal/abnormal . BUN/creatinine ratio NOT APPLICABLE See_Comment [Aut omated message] (test code = 3097-3) The dev9ks tem which generated this result transmitted ref erence range: 6 - 22 ( calc). The reference r peter was not used to int erpret this result as normal/abnormal . Sodium (test code = 139 mmol/L 192-671 1117-2) Potassium (test code = 4.0 mmol/L 3.5-5.3 2823-3) Chloride (test code = 103 mmol/L 98-110 2075-0) CO2 (test code = 8-9) 30 mmol/L 20-32 Calcium (test code = 9.5 mg/dL 8.6-10.4 78385-1) Protein (test code = 7.0 g/dL 6.1-8.1 2885-2) Albumin (test code = 4.0 g/dL 3.6-5.1 1751-7) Globulin, total (test 3.0 See_Comment [Auto mated message] code = 17624-4) The system w Boutirh generated this result transmitted ref erence range: 1.9 - 3. 7 g/dL (calc). The ref erence range was not u sed to interpret this result as normal/abnor mal. Albumin/globulin ratio 1.3 See_Comment [Aut omated message] (test code = 1759-0) The sys tem which generated this result transmitted ref erence range: 1.0 - 2. 5 (calc). The ref erence range was not u sed to interpret this result as normal/abnor mal. Total bilirubin (test 1.0 mg/dL 0.2-1.2 code = 1975-2) Alkaline phosphatase 85 U/L 37-153 (test code = 6768-6) AST (test code = 1920-8) 14 U/L 10-35 ALT (test code = 1742-6) 14 U/L 6-29 CRISTINA (test code = CRISTINA) FASTING:YES FASTING: YES RAC (test code = RAC) Performing Organization Information: Site ID: SARA Name: [facility] Address: [address] [place] [id number] Director: Geo Mcqueen Lab Interpretation (test Abnormal code = 47041-9) [id number] 06:41:00 Test Item Value Reference Interpretation Comments Range Hemoglobin A1C 6.1 See_Comment H For someone w anastasiya (test code = known diabetes, a 4548-4) hemoglobin A1c value between 5.7% an d 6.4% is consist ent withprediabetes and should be confi rmed with a follow-u p test. For someo ne with known diab etes, a value <7%indicates that their diabetes is well controlled . B6jubpxmlk shou ld be individualized based on duration ofdiabetes, age , comorbid condit ions, and otherconsiderat ions. This assay resu lt is consistent with an increased risko f diabetes. Curre ntly, no consensus ex ists regarding use ofhemoglobin A1 c for diagnosis of diabetes for children. [Auto mated message] The sy stem which generated this result transmit leroy reference range : <5.7 % of total Hgb. The reference r peter was not used to interpret this result as normal/abnormal . CRISTINA (test code = FASTING:YES CRISTINA) FASTING: YES RAC (test code = Performing RAC) Organization Information: Site ID: SARA Name: [facility] Address: [address] [place] [id number] Director: Geo Mcqueen Lab Interpretation Abnormal (test code = 34363-2) [facility] [id number] 16:10:00 Test Item Value Reference Range Interpretation Comments Hemoglobin A1C (test 6.3 % 4.8-5.6 H Predia betes: code = 4548-4) 5.7 - 6.4 Diabetes: >6.4 Glycemic control for adults with diabetes: <7.0 CRISTINA (test code = CRISTINA) Performed at: [address] [place] [id number] Director: Zain Miranda MD, Phone: [phone] Lab Interpretation Abnormal (test code = 71061-2) [facility] creatinine urine [id number] 20:08:00 Test Item Value Reference Range Interpretation Comments Creatinine, 213.6 mg/dL Not Estab. urine (mg/dL) (test code = 2161-8) Albumin, urine 6.3 ug/mL Not Estab. (test code = 48163-2) Microalbumin/cr 3 See_Comment Normal: 0 - 29 eatinine ratio Moderately (test code = increased: 30 - 300 9318-7) Severely increa sed: >300 [Automated message] The sy stem which generated this result transmit leroy reference range : 0 - 29 mg/g creat. The reference range was not used to interpret this result as normal/abnormal . CRISTINA (test code Performed at: - = CRITSINA) [facility] [id number] Director: Zain Miranda MD, Phone: [phone] [facility], automated with [id number] 16:10:00 Test Item Value Reference Range Interpretation Comments Specific gravity, 1.026 1.005-1.030 urine (test code = 5811-5) pH, urine (test code 5.5 5.0-7.5 = 5803-2) Color, UA (test code Yellow Yellow = 5778-6) Appearance (test code Turbid Clear A = 5767-9) WBC esterase, urine Negative Negative (test code = 5799-2) Protein, UA (test Negative Negative/Trace code = 76506-4) Glucose, urine (test Negative Negative code = 54357-8) Ketones, UA (test Negative Negative code = 2514-8) Occult blood, urine Negative Negative (test code = 5794-3) Bilirubin, UA (test Negative Negative code = 5770-3) Urobilinogen, UA 1.0 mg/dL 0.2-1.0 (test code = 91077-3) Nitrite, UA (test Negative Negative code = 5802-4) Microscopic See below: Microscopic was examination (test indicated and was code = 44697-7) performed. CRISTINA (test code = CRISTINA) Performed at: [facility] [id number] Director: Zain Miranda MD, Phone: [phone] Lab Interpretation Abnormal (test code = 96142-5) [facility] [id number] 16:10:00 Test Item Value Reference Range Interpretation Comments WBC, UA (test code None seen See_Comment [Automat ed = 5821-4) message] The system which generated this result transmit leroy reference range : 0 - 5 /hpf. The reference range was not used to interpret this result as normal/abnormal . RBC, UA (test code None seen See_Comment [Automat ed = 48288-4) message] The system which generated this result [...] code = None seen None seen /lpf 16819-0) Bacteria, UA (test None seen None seen/Few code = 5769-5) CRISTINA (test code = Performed at: 01 - CRISTINA) [facility] [address] [id number] Director: Zain Miranda MD, Phone: [phone] [facility] [id number] 14:11:00 Test Item Value Reference Range Interpretation Comments Glucose (test code 94 mg/dL 65-99 = 2345-7) BUN (test code = 16 mg/dL 6-24 3094-0) Creatinine (test 0.78 mg/dL 0.57-1.00 code = 2160-0) EGFR Non-Afr. 88 mL/min/1.73 >=59 Georgian (test code = 2775) EGFR 101 mL/min/1.73 >=59 In accorda nce with Georgian (test recommendatio ns from code = 2774) [...] CO2 (test code = 23 mmol/L 20-29 2027-9) Calcium (test code 9.5 mg/dL 8.7-10.2 = 89267-7) Protein (test code 6.8 g/dL 6.0-8.5 = 2885-2) Albumin, S (test 3.9 g/dL 3.8-4.9 code = 1751-7) Globulin, total 2.9 g/dL 1.5-4.5 (test code = 74433-1) Albumin/globulin 1.3 1.2-2.2 ratio (test code = [...] (test code = 17 See_Comment [Automated message] 1919-) The system [employer] generated this result transmitted ref erence range: 0 - 40 I U/L. The reference r peter was not used to interpret this result as normal/abnor mal. ALT (test code = 16 See_Comment [Automated message] 46510-05) The system [employer] generated this result transmitted ref erence range: 0 - 32 I U/L. The reference r peter was not used to interpret this result as normal/abnor mal. CRISTINA (test code = Performed at: CRISTINA) - [facility] [id number] Director: Zain Miranda MD, Phone: [phone] [facility] [id number] 14:11:00 Test Item Value Reference Range Interpretation Comments Cholesterol (test code = 146 mg/dL 576-957 3094-3) Triglycerides (test code 73 mg/dL 0-149 = 2571-8) HDL cholesterol (test 45 mg/dL >=39 code = 2085-9) VLDL cholesterol kiana 14 mg/dL 5-40 (test code = 17102-8) LDL Chol Calc ([facility]) 87 mg/dL 0-99 (test code = 56064-5) Non-HDL cholesterol 101 mg/dL 0-129 (test code = 59349-1) CRISTINA (test code = CRISITNA) Performed at: [address] [place] [address] [id number] Director: Zain Miranda MD, Phone: [phone] [facility] HospitalVitamin B12 [id number] 14:11:00 Test Item Value Reference Range Interpretation Comments Vitamin B12 (test code = >2000 232-1245 H 2132-9) CRISTINA (test code = CRISTINA) Performed at: [address] [place] [address] [id number] Director: Zain Miranda MD, Phone: [phone] Lab Interpretation (test Abnormal code = 54897-2) [facility] HospitalFerritin [id number] 14:11:00 Test Item Value Reference Range Interpretation Comments Ferritin level (test code 336 ng/mL 15-150 H = 2276-4) CRISTINA (test code = CRISTINA) Performed at: [address] [place] [address] [id number] Director: Zain Miranda MD, Phone: [phone] Lab Interpretation (test Abnormal code = 14646-8) [facility] [id number] 14:11:00 Test Item Value Reference Range Interpretation Comments Iron level (test 63 ug/dL 27-159 code = 2498-4) CRISTINA (test code = Performed at: CRISTINA) [address] [id number] Director: Zain Miranda MD, Phone: [phone] [facility] with platelet and [id number] 14:11:00 Test Item Value Reference Range Interpretation Comments WBC (test code = 6.4 See_Comment [Automated 2824-2) message] The system which generated this result transmit leroy reference range : 3.4 - 10.8 x10E3/uL. The reference range was not used to interpret this result as normal/abnormal . RBC (test code = 4.41 See_Comment [Automated 789-8) message] The system which generated this result [...] % Not Estab. granulocytes (test code = 23171-0) Immature 0.0 See_Comment [Automated granulocytes, message] The absolute (test code system w the [facility] = 74625-7) generated this result transmit leroy reference range : 0.0 - 0.1 x10E3/uL. The reference range was not used to interpret this result as normal/abnormal . CRISTINA (test code = Performed at: [facility]) - [employer] [address] [id number] Director: Zain Miranda MD, Phone: [phone] [facility] [id number] 14:11:00 Test Item Value Reference Range Interpretation Comments Hepatitis C Ab <0.1 See_Comment Negative: < 0.8 (test code = Indeterminate: 0.8 - 96587-8) 0.9 Positive: > 0.9 The CDC recomme nds that a positive HCV antibody result be followed up wit h a HCV Nucleic Aci d Amplification t est (619032). [Auto mated message] The sy stem which generated this result transmit leroy reference range : 0.0 - 0.9 s/co rati o. The reference r peter was not used to interpret this result as normal/abnormal . [facility] (test code = Performed at: [facility]) - [facility] [address] [id number] Director: Zain Miranda MD, Phone: [phone] [facility]/[id number] 14:11:00 Test Item Value Reference Interpretation Comments Range TSH (test 0.715 See_Comment No apparent thy roid disorder. code = [place] [address]-1) indicated. Inra re instances, Secondary Hypot hyroidism [...] at: 01 code = - [facility]) [address] [id number] Director: Zain Miranda MD, Phone: [phone] [facility] / creatinine urine [id number] 00:08:00 Test Item Value Reference Range Interpretation Comments Creatinine, urine, 198.1 mg/dL Not Estab. random (test code = 2161-8) Albumin, urine 7.7 ug/mL Not Estab. (test code = 49215-7) Microalbumin/creati See_Comment [Automa leroy message] nine ratio (test The system which code = 9318-7) generated thi s result transmitted ref erence range: 0 - 29 m g/g creat. The refe rence range was not u sed to interpret this result as normal/abnor mal. [facility]STINA (test code = [facility]STINA) [facility] [id number] 23:08:00 Test Item Value Reference Range Interpretation Comments Hemoglobin A1C (test code = 4548-4) 5.6 % 4.8-5.6 [facility] (test code = CRISTINA) [facility]Urinalysis, automated with [id number] 20:10:00 Test Item Value Reference Range Interpretation Comments Specific gravity, urine (test code 1.005-1.030 = 2965-2) pH, urine (test code = 5803-2) 5.0-7.5 Color, UA (test code = 5778-6) Yellow Yellow Appearance (test code = 5767-9) Clear Clear WBC esterase, urine (test code = Negative Negative 5799-2) Protein, UA (test code = 50466-6) Negative Negative/Trace Glucose, urine (test code = Negative Negative 2349-9) Ketones, UA (test code = 2514-8) Negative Negative Occult blood, urine (test code = Negative Negative 5794-3) Bilirubin, UA (test code = 5770-3) Negative Negative Urobilinogen, UA (test code = 0.2 mg/dL 0.2-1.0 20866-7) Nitrite, UA (test code = 5802-4) Negative Negative Microscopic examination (test code See below: = 22909-6) [facility]STINA (test code = CRISTINA) [facility]Microscopic [id number] 20:10:00 Test Item Value Reference Range Interpretation Comments WBC, UA (test code = 0-5 See_Comment [Autom ated message] 5821-4) The system [email or web address] generated this result transmitted ref erence range: 0 - 5 /h pf. The reference range was not used to interpr et this result as normal/abnormal . RBC, UA (test code = 0-2 See_Comment [Autom ated message] 95565-5) The system [employer] generated this result transmitted ref erence range: [...] = 5769-5) CRISTINA (test code = CRISTINA) [facility] HospitalComprehensive metabolic [id number] 07:06:00 Test Item Value Reference Range Interpretation Comments Glucose (test code = 103 mg/dL 65-99 H 2345-7) BUN (test code = 13 mg/dL 6-24 3094-0) Creatinine (test code 0.78 mg/dL 0.57-1.00 = 2160-0) EGFR Non-Afr. 88 mL/min/1.73 >59 Georgian (test code = 2775) EGFR 102 mL/min/1.73 >59 (test code = 2774) BUN/creatinine ratio 9-23 (test code = 3097-3) Sodium (test code = 141 mmol/L 988-691 1577-2) Potassium (test code 4.5 mmol/L 3.5-5.2 = 2823-3) Chloride (test code = 104 mmol/L 96-106 2074-0) CO2 (test code = 26 mmol/L 20-29 2028-04) Calcium (test code = 9.4 mg/dL 8.7-10.2 16558-1) Protein (test code = 6.8 g/dL 6.0-8.5 2885-2) Albumin, S (test code 4.0 g/dL 3.8-4.9 = 1751-7) Globulin, total (test 2.8 g/dL 1.5-4.5 code = 20759-4) Albumin/globulin 1.2-2.2 ratio (test code = 1759-0) [...] CRISTINA) Lab Interpretation Abnormal (test code = 06506-9) [facility] HospitalLipid [id number] 07:06:00 Test Item Value Reference Range Interpretation Comments Cholesterol (test code = 2092-3) 121 mg/dL 100-199 Triglycerides (test code = 2571-8) 44 mg/dL 0-149 HDL cholesterol (test code = 44 mg/dL >39 2084-9) VLDL cholesterol kiana (test code = 11 mg/dL 5-40 86973-9) LDL Chol Calc ([facility]) (test code = 66 mg/dL 0-99 36010-9) Non-HDL cholesterol (test code = 77 mg/dL 0-129 09343-7) C[facility]STINA (test code = CRISTINA) [facility] with platelet and [id number] 06:06:00 Test Item Value Reference Range Interpretation Comments WBC (test code = 6690-2) See_Comment [A utomated message] The system [employer] generated this result transmit leroy reference range : 3.4 - 10.8 x10E3/uL . The reference range was not used to interpret this result as normal/abnormal . RBC (test code = 789-8) See_Comment [Au tomated message] The system [employer] generated this result transmit leroy reference range [...] ated message] code = 777-3) The system [employer] generated this result transmit leroy reference range [...] 0 % Not Estab. (test code = 62611-8) Immature grans (abs) See_Comment [Autom ated message] (test code = 24285-7) The sy stem which generated this result transmit leroy reference range : 0.0 - 0.1 x10E3/uL. The reference range was not used to interpret this result as normal/abnormal . CRISTINA (test code = CRISTINA) Lab Interpretation (test Abnormal code = 11324-6) [facility]
--- NOTE | 2023-07-02 11:02 | RAD REPORT ---
EXAM DESCRIPTION: CT - C Spine Wo Con - 07/02/2023 10:52 am CLINICAL HISTORY: PAIN COMPARISON: No comparisons TECHNIQUE: CT Scan was obtained of the cervical spine without contrast. Reformats were provided in t he sagittal and coronal plane. FINDINGS: No acute fracture of the cervical spine. Reversal of the normal cervical lordosis. Uncover tebral joint and facet hypertrophy results in mild neural foraminal narrowing at C3-4 bilaterally. N o significant focal degenerative changes. No suspicious thyroid nodules or lymphadenopathy. The lung apices are clear. IMPRESSION: No fracture or traumatic malalignment of the cervical spine. Loss of the normal cervical lordosis may be positional or secondary to spasm. Mild bilateral neural foraminal narrowing at C3-4 secondary to mild cervical spondylosis.
--- NOTE | 2023-07-02 11:15 | RAD REPORT ---
EXAM DESCRIPTION: RAD - Chest Single View - 07/02/2023 11:07 am CLINICAL HISTORY: PAIN COMPARISON: Chest Single View dated 12/25/2022; Chest Single View dated 10/02/2022; Chest Single View d ated 08/28/2021; Chest Pa And Lat (2 Views) dated 04/28/2021; CHEST SINGLE VIEW dated 02/29/2012 FINDINGS: Lines: None. Lungs: No evidence of edema or pneumonia. Pleural: No significant pleural effusions or pneumothorax. Cardiac: The heart size is within normal limits. Mediastinum: Within normal limits. Bones: No acute fractures. Other: None IMPRESSION: No acute cardiopulmonary disease.
--- NOTE | 2023-07-02 11:19 | RAD REPORT ---
EXAM DESCRIPTION: RAD - Shoulder Left 2 View - 07/02/2023 11:07 am CLINICAL HISTORY: PAIN COMPARISON: No comparisons FINDINGS/IMPRESSION: No acute fracture. No malalignment. Ossific density adjacent to the lower aspec t of glenoid could be an intra-articular body . Possible osteochondroma along the lateral aspect of t he left proximal humeral metadiaphysis. MRI could further assess these findings.
[2023-07-02 11:28] LABS: Absolute Lymphocytes (CBC) 3.6 K/uL (0.7-4.9); Lymphocytes % 45.7 % (15.3-44.8); MPV 8.5 fL (7.6-11.3); Platelets 289 thou/uL (152-406); RBC Red Blood Cell Count 4.33 M/uL (3.86-4.86)
[2023-07-02] MEDS ORDERED: ACETAMINOPHEN 500 MG TAB ONE (11:30)
[2023-07-02 11:51] LABS: Potassium 3.4 mEq/L (3.5-5.1); Troponin High Sensitivity 3.8 pg/mL (<58.9)
--- NOTE | 2023-07-02 12:34 | ER ---
Nurse's Notes [facility] Name: Iliana Redding Age: 52 yrs Sex: Female : 1970 Arrival Date: 07/02/2023 Time: 10:05 Bed 18 Private MD: Diagnosis: atypical chest pain;left shoulder pain;cervical radiculopathy Presentation: 07/02 10:15 Chief complaint: Intermittent sharp left arm pain and chest tightness since this morning. Denies injury/SOB. Coronavirus screen: At this time, the client does not indicate any symptoms associated with coronavirus-19. Ebola Screen: No symptoms or risks identified at this time. Initial Sepsis Screen: Does the patient meet any 2 criteria? No. Patient's initial sepsis screen is negative. Does the patient have a suspected source of infection? No. Patient's initial sepsis screen is negative. Risk Assessment: Do you want to hurt yourself or someone else? Patient reports no desire to harm self or others. Onset of symptoms was July 02, 2023. 10:15 Method Of Arrival: Ambulatory hb 10:15 Acuity: OCHOA 3 hb Historical: - Allergies: 10:16 Aspirin; hb - Home Meds: 10:16 Hydrochlorothiazide Oral [Active]; lisinopril Oral [Active]; hb - PMHx: 10:16 Hypertensive disorder; hb - PSHx: 10:16 Cholecystectomy; tuballigation; hb - Immunization history:: Adult Immunizations up to date. - Family history:: not pertinent. - Social history:: Smoking status: unknown. - Hospitalizations: : No recent hospitalization is reported. Screenin:20 [facility] ED Fall Risk Assessment (Adult) Score/Fall Risk Level 0 - 2 = Low Risk. Abuse eh3 screen: Denies threats or abuse. Denies injuries from another. Nutritional screening: No deficits noted. Tuberculosis screening: No symptoms or risk factors identified. Assessment: 10:20 General: Appears in no apparent distress. uncomfortable, Behavior is calm, cooperative, eh3 appropriate for age. Pain: Complains of pain in chest and left arm. Neuro: Level of Consciousness is awake, alert, obeys commands, Oriented to person, place, time, situation. Cardiovascular: Capillary refill < 3 seconds Patient's skin is warm and dry. Respiratory: Airway is patent Respiratory effort is even, unlabored, Respiratory pattern is regular, symmetrical. GI: Abdomen is round non-distended. Derm: Skin is pink, warm \T\ dry. Musculoskeletal: Circulation, motion, and sensation intact. 11:15 Reassessment: Patient appears in no apparent distress at this time. Patient and/or eh3 family updated on plan of care and expected duration. Pain level reassessed. Patient is alert, oriented x 3, equal unlabored respirations, skin warm/dry/pink. C/o headache. 12:15 Reassessment: Patient appears in no apparent distress at this time. Patient and/or eh3 family updated on plan of care and expected duration. Pain level reassessed. Patient is alert, oriented x 3, equal unlabored respirations, skin warm/dry/pink. Vital Signs: 10:15 BP 149 / 104; Pulse 75; Resp 18; Temp 98.1(O); Pulse Ox 100% on R/A; Weight 117.93 kg; hb Height 5 ft. 3 in. ; Pain 6/10; 11:15 BP 135 / 95; Pulse 88; Resp 16; Pulse Ox 100% on R/A; eh3 12:15 BP 122 / 91; Pulse 82; Resp 16; Pulse Ox 100% on R/A; eh3 10:15 Body Mass Index 46.06 (117.93 kg, 160.02 cm) hb 10:15 Pain Scale: Adult hb ED Course: 10:08 Patient arrived in ED. mr 10:08 Pako Shepherd MD is Attending Physician. cp3 10:16 Triage completed. hb 10:20 Meagan Bowie, JESS is Primary Nurse. eh3 10:20 Patient has correct armband on for positive identification. Bed in low position. Call eh3 light in reach. Side rails up X2. Provided Education on: use of call turcios. Pulse ox on. NIBP on. 10:20 Arm band placed on. eh3 10:54 CT C Spine In Process Unspecified. EDMS 11:05 EKG done, by ED staff. aw1 11:09 XRAY Chest (1 view) In Process Unspecified. EDMS 11:09 Shoulder Left (2 View) XRAY In Process Unspecified. EDMS 11:13 Inserted saline lock: 22 gauge in right antecubital area, using aseptic technique. eh3 Blood collected. 12:33 Ren Brush MD is Referral Physician. 3 12:39 No provider procedures requiring assistance completed. IV discontinued, intact, 3 bleeding controlled, No redness/swelling at site. Pressure dressing applied. Administered Medications: 11:15 Drug: Acetaminophen PO 1000 mg PO once Route: PO; 3 12:15 Follow up: Response: No adverse reaction; Pain is decreased eh3 Medication: 12:39 VIS not applicable for this client. 3 Outcome: 12:33 Discharge ordered by MD. cp3 12:40 Discharged to home ambulatory, with family, 3 12:40 Condition: stable 12:40 Discharge instructions given to patient, Instructed on discharge instructions, follow up and referral plans. medication usage, Demonstrated understanding of instructions, follow-up care, medications, Prescriptions given X 2, 12:54 Patient left the ED. 3 Signatures: Dispatcher [employer] EDPako Rios MD MD 3 Danya Bowers, Reg Reg mr Sandi Anthony RN RN Meagan Bowie RN RN 3 Lorraine Soares aw1 Corrections: (The following items were deleted from the chart) 11:24 10:35 Meagan Bowie, JESS is Primary Nurse. 3 3
--- NOTE | 2023-07-02 12:34 | EDPHYS ---
Physician Documentation [facility] Name: Iliana Redding Age: 52 yrs Sex: Female : 1970 Arrival Date: 07/02/2023 Time: 10:05 Bed 18 Private MD: ED Physician Pako Shepherd HPI: 07/02 10:21 This 52 yrs old Black Female presents to ER via Ambulatory with complaints of Arm Pain, cp3 Chest Tightness. 10:21 The patient is a 52-year-old female who presents to the ED complaining of left shoulder cp3 plain, left neck pain with radiation to the left arm for the last 2 days. No associated fever, chills, nausea, vomiting, diaphoresis, shortness of breath. Historical: - Allergies: 10:16 Aspirin; hb - Home Meds: 10:16 Hydrochlorothiazide Oral [Active]; lisinopril Oral [Active]; hb - PMHx: 10:16 Hypertensive disorder; hb - PSHx: 10:16 Cholecystectomy; tuballigation; hb - Immunization history:: Adult Immunizations up to date. - Family history:: not pertinent. - Social history:: Smoking status: unknown. - Hospitalizations: : No recent hospitalization is reported. ROS: 10:22 Constitutional: Negative for fever, chills, and weight loss, Eyes: Negative for injury, cp3 pain, redness, and discharge, ENT: Negative for injury, pain, and discharge, Respiratory: Negative for shortness of breath, cough, wheezing, and pleuritic chest pain, Abdomen/GI: Negative for abdominal pain, nausea, vomiting, diarrhea, and constipation, Back: Negative for injury and pain, MS/Extremity: Negative for injury and deformity, Skin: Negative for injury, rash, and discoloration, Neuro: Negative for headache, weakness, numbness, tingling, and seizure, Psych: Negative for depression, anxiety, suicide ideation, homicidal ideation, and hallucinations, Allergy/Immunology: Negative for hives, rash, and allergies, Endocrine: Negative for neck swelling, polydipsia, polyuria, polyphagia, and marked weight changes, Hematologic/Lymphatic: Negative for swollen nodes, abnormal bleeding, and unusual bruising, 10:22 Neck: Positive for pain with movement, pain at rest, 10:22 MS/extremity: Positive for tenderness, arthralgia left shoulder, Exam: 10:22 Constitutional: This is a well developed, well nourished patient who is awake, alert, cp3 and in no acute distress. Head/Face: Normocephalic, atraumatic. Eyes: Pupils equal round and reactive to light, extra-ocular motions intact. Lids and lashes normal. Conjunctiva and sclera are non-icteric and not injected. Cornea within normal limits. Periorbital areas with no swelling, redness, or edema. ENT: Nares patent. No nasal discharge, no septal abnormalities noted. Tympanic membranes are normal and external auditory canals are clear. Oropharynx with no redness, swelling, or masses, exudates, or evidence of obstruction, uvula midline. Mucous membranes moist. Neck: Trachea midline, no thyromegaly or masses palpated, and no cervical lymphadenopathy. Supple, full range of motion without nuchal rigidity, or vertebral point tenderness. No Meningismus. Chest/axilla: Normal chest wall appearance and motion. Nontender with no deformity. No lesions are appreciated. Cardiovascular: Regular rate and rhythm with a normal S1 and S2. No gallops, murmurs, or rubs. Normal PMI, no JVD. No pulse deficits. Respiratory: Lungs have equal breath sounds bilaterally, clear to auscultation and percussion. No rales, rhonchi or wheezes noted. No increased work of breathing, no retractions or nasal flaring. Abdomen/GI: Soft, non-tender, with normal bowel sounds. No distension or tympany. No guarding or rebound. No evidence of tenderness throughout. Back: No spinal tenderness. No costovertebral tenderness. Full range of motion. Skin: Warm, dry with normal turgor. Normal color with no rashes, no lesions, and no evidence of cellulitis. MS/ Extremity: Pulses equal, no cyanosis. Neurovascular intact. Full, normal range of motion. Neuro: Awake and alert, GCS 15, oriented to person, place, time, and situation. Cranial nerves II-XII grossly intact. Motor strength 5/5 in all extremities. Sensory grossly intact. Cerebellar exam normal. Normal gait. Psych: Awake, alert, with orientation to person, place and time. Behavior, mood, and affect are within normal limits. Vital Signs: 10:15 BP 149 / 104; Pulse 75; Resp 18; Temp 98.1(O); Pulse Ox 100% on R/A; Weight 117.93 kg; hb Height 5 ft. 3 in. ; Pain 6/10; 11:15 BP 135 / 95; Pulse 88; Resp 16; Pulse Ox 100% on R/A; eh3 12:15 BP 122 / 91; Pulse 82; Resp 16; Pulse Ox 100% on R/A; eh3 10:15 Body Mass Index 46.06 (117.93 kg, 160.02 cm) hb 10:15 Pain Scale: Adult hb Procedures: 10:29 quality assurance monitor chassis interpreted by me: Rate 75, normal sinus rhythm no evidence of ectopy. cp3 MDM: 10:08 Patient medically screened. cp3 10:29 Differential diagnosis: The differential diagnosis includes: Left shoulder pain, left cp3 shoulder contusion, shoulder strain, cervical radiculopathy, atypical chest pain, ACS, hypertensive urgency. Data reviewed: vital signs, nurses notes, lab test result(s), EKG, radiologic studies. 11:23 ED course: ekg interpreted by me: rate 65, normal sinus rhythm, no evidence of acute mi.cp3 12:31 Consideration of Admission/Observation Escalation of care including cp3 admission/observation considered. patient declined observation, pain resolved. I considered the following discharge prescriptions or medication management in the emergency department Medications were administered in the Emergency Department. See MAR. Historians other than the Patient: Spouse/Significant Other: history of arthritis. Response to treatment: the patient's symptoms have markedly improved after treatment. 07/02 10:28 Order name: Basic Metabolic Panel; Complete Time: 12: 3 07/02 12: Interpretation: NA 138; K 3.4; CL 104; CO2 29; ANION GAP 8.4; GLUC 107; BUN 15; CRE cp3 0.82; GFR 85; CA 10.2. 07/02 10:28 Order name: CBC with Diff; Complete Time: 11:50 3 07/02 10:28 Order name: NT PRO-BNP; Complete Time: 12:03 cp3 07/02 12: Interpretation: NT PRO-BNP 6. cp3 07/02 10:28 Order name: Troponin HS; Complete Time: 12: 3 07/02 12: Interpretation: Troponin HS 3.8. 3 07/02 10:28 Order name: XRAY Chest (1 view); Complete Time: 11:34 [facility] 07/02 11:35 Interpretation: Chest x-ray interpreted by me no acute cardiopulmonary proce. [facility] 07/02 10:28 Order name: CT C Spine; Complete Time: 11:34 [facility] 07/02 11:35 Interpretation: No acute disease except: Per Radiologist's finding(s): [facility] [place] [address] [facility] REPORT Name: ILIANA REDDING Acct Number: [id number] :1970 Age:52 Sex:F Ord Phys: Pako Shepherd MD Unit Number: [id number] [facility] Dr: YENNI Status: REG ER ER Exam Date: 07/02/23 EXAM DESCRIPTION: CT - C Spine Wo Con - 07/02/2023 10:52 am CLINICAL HISTORY: PAIN COMPARISON: No comparisons TECHNIQUE: CT Scan was obtained of the cervical spine without contrast. Reformats were provided in the sagittal and coronal plane. FINDINGS: No acute fracture of the cervical spine. Reversal of the normal cervical lordosis. Uncovertebral joint and facet hypertrophy results in mild neural foraminal narrowing at C3-4 bilaterally. No significant focal degenerative changes. No suspicious thyroid nodules or lymphadenopathy. The lung apices are clear. IMPRESSION: No fracture or traumatic malalignment of the cervical spine. Loss of the normal cervical lordosis may be positional or secondary to spasm. Mild bilateral neural foraminal narrowing at C3-4 secondary to mild cervical spondylosis. Signed By: Ivan Hawkins MD Signed AT: 07/02/23 1102 . 07/02 10:28 Order name: Shoulder Left (2 View) XRAY; Complete Time: 11:34 [facility] 07/02 11:35 Interpretation: No acute disease: Images reviewed by me- negative acute. [facility] 07/02 10:28 Order name: EKG; Complete Time: 10:29 [facility] 07/02 10:28 Order name: Cardiac monitoring; Complete Time: 10:35 [facility] 07/02 10:28 Order name: EKG - Nurse/Tech; Complete Time: 11:07 [facility] 07/02 10:28 Order name: IV Saline Lock; Complete Time: 11:19 [facility] 07/02 10:28 Order name: Labs collected and sent; Complete Time: 11:19 cp3 07/02 10:28 Order name: O2 Sat Monitoring; Complete Time: 10:35 cp3 Administered Medications: 11:15 Drug: Acetaminophen PO 1000 mg PO once Route: PO; eh3 12:15 Follow up: Response: No adverse reaction; Pain is decreased eh3 Disposition Summary: 07/02/23 12:33 Discharge Ordered Notes: Location: Home cp3 Problem: new cp3 Condition: Stable cp3 Diagnosis - atypical chest pain cp3 - left shoulder pain cp3 - cervical radiculopathy cp3 Followup: cp3 - With: Ren Brush MD - When: - Reason: If symptoms return Discharge Instructions: - Discharge Summary Sheet cp3 Forms: - Medication Reconciliation Form cp3 - Thank You Letter cp3 - Antibiotic Education cp3 - Prescription Opioid Use cp3 - Patient Portal Instructions cp3 - Leadership Thank You Letter cp3 Prescriptions: - ketorolac 10 mg Oral tablet - take 1 tablet ORAL route 3 times per day for 5 days as needed for pain; 15 cp3 tablet; Refills: 0, Product Selection Permitted - Cyclobenzaprine 5 mg Oral Tablet - take 1 tablet ORAL route 3 times per day As needed; 15 tablet; Refills: 0, cp3 Product Selection Permitted Signatures: Dispatcher [employer] Pako Fisher MD MD cp3 Sandi Anthony, JESS RN Meagan Bowie RN RN 3 Corrections: (The following items were deleted from the chart) 11:35 11:35 Images reviewed by me- negative acute. cp3 cp3
[2023-07-02 13:10] VITALS: TEMP 98.1; O2SAT 100
[2023-07-02 13:17] VITALS: BP 122/91
== END 2023-07-02 12:54 | disposition home or self-care (01) ==
LOC: ER 10:05
DX: R07.89 Other chest pain (principal); M54.12 Radiculopathy, cervical region; M25.512 Pain in left shoulder; I10 Essential (primary) hypertension; Z88.6 Allergy status to analgesic agent
CPT/HCPCS: 36415; 71045; 72125; 80048; 83880; 84484; 85025; 93005; 99284